=== PATIENT | male | born 1940 | race Caucasian/White ===

== ENCOUNTER 2021-01-19 09:51 | Outpatient (CLI) | payer OTHER, SELFPAY ==
[2021-01-19 10:49] LABS: Alanine Aminotransferase 17 U/L (4-50); Albumin Level 4.2 g/dL (3.5-5.1); Alkaline Phosphatase 74 U/L (38-126); Anion Gap 8 mmol/L (8-16); Aspartate Amino Transferase 26 U/L (17-59); Bilirubin,Total 0.5 mg/dL (0.2-1.3); Blood Urea Nitrogen 9 mg/dL (9-20); Calcium 9.2 mg/dL (8.4-10.2); Carbon Dioxide 27 mmol/L (22-30); Chloride 105 mmol/L (98-107); Cholesterol 154 mg/dL (0-200); Estimated Glomerular Filt Rate > 60; Glucose 149 mg/dL (75-110); HDL Direct 40 mg/dL; Hemoglobin A1C 6.3 % (<5.7); Magnesium 1.9 mg/dL (1.6-2.3); Potassium 4.5 mmol/L (3.4-5.0); Sodium 140 mmol/L (137-145); Triglycerides 143 mg/dL (<150)
[2021-01-19 10:53] LABS: Add Urine Microscopic? YES; Appearance Urine Clear (Clear); Bacteria Urine Trace /hpf; Bilirubin Urine Negative (Negative); Blood Urine 1+ (Negative); Color Urine Yellow (Yellow); Glucose Urine UA Negative (Negative); Ketones Urine Negative (Negative); Leukocyte Esterase Ur Negative LEU/UL (NEGATIVE); Mucus Urine Rare /lpf; Nitrate Urine Negative (Negative); Protein Urine Negative (Negative); RBC Urine 0-2 /hpf (0-2); Specific Grav Ur 1.017 (1.001-1.035); Urobilinogen Urine Negative mg/dL (<2.0); WBC Urine 0-3 /hpf (0-3)
[2021-01-19 10:59] LABS: LDL Cholesterol Direct 69 mg/dL
== END 2021-01-19 09:52 | disposition home or self-care (01) ==
PROVIDERS: PCP Nurse Practitioner Family; Visit Provider Nurse Practitioner Family
DX: E11.9 Type 2 diabetes mellitus without complications (principal); I10 Essential (primary) hypertension; R25.2 Cramp and spasm; E78.5 Hyperlipidemia, unspecified
CPT/HCPCS: 36415; 80048; 80061; 80076; 81001; 83036; 83735

== ENCOUNTER 2021-04-30 12:44 | Outpatient (CLI) | payer OTHER, SELFPAY ==
--- NOTE | 2021-04-30 | ECHO_ITS ---
Patient Info Name: Bennett Merlos Age: 80 years : 1940 Gender: Male Ht: 72 in Wt: 195 lbs BSA: 2.13 m2 HR: 68 bpm BP: 153 / 84 mmHg Heart Rhythm: Sinus Rhythm Exam Date: 04/30/2021 1:55 PM Exam Location: [facility] Patient Status: Outpatient Admit Date: 04/30/2021 Staff Ordering Physician: Lorri Law NP System Designer: ADRIAN Attending Provider: Lorri Law NP Referring Physician: Ani RODRIGUEZ; Exam Type: CA echo doppler color flow Study Info Indications R06.00 - Dyspnea, unspecified Complete two-dimensional, color flow and Doppler transthoracic echocardiogram is performed. Summary 1. Complete two-dimensional, color flow and Doppler transthoracic echocardiogram is performed. 2. Left ventricular chamber dimension is normal. 3. Left ventricular systolic function is normal, estimated at 55-60%. 4. Left ventricular septal wall motion is abnormal with septal motion related to bundle branch block. 5. The left ventricular diastolic function is grade I diastolic dysfunction. 6. E/e' 10 is mildly elevated. 7. Right ventricular systolic function is moderately reduced and with abnormal TAPSE 1.3 cm. 8. Right ventricular chamber dimension is moderately enlarged. 9. There is mild aortic valve sclerosis. 10. There is mild mitral valve regurgitation. 11. There is mild tricuspid valve regurgitation. 12. No pulmonary hypertension, estimated pulmonary arterial systolic pressure is 28 mmHg. 13. There is trace pulmonic regurgitation. Left Ventricle E/e' 10 is mildly elevated. Left ventricular chamber dimension is normal. Left ventricular systolic function is normal, estimated at 55-60%. Left ventricular septal wall motion is abnormal with septal motion related to bundle branch block. The left ventricular diastolic function is grade I diastolic dysfunction. Right Ventricle Right ventricular systolic function is moderately reduced and with abnormal TAPSE 1.3 cm. Right ventricular chamber dimension is moderately enlarged. Left Atria Left atrial chamber dimension is normal. Right Atria Right atrial chamber dimension is normal. Aortic Valve The aortic valve is trileaflet. There is mild aortic valve sclerosis. There is no aortic valve stenosis. There is no aortic valve regurgitation. Pulmonic Valve There is trace pulmonic regurgitation. Mitral Valve There is no mitral valve stenosis. There is mild mitral valve regurgitation. Tricuspid Valve There is mild tricuspid valve regurgitation. No pulmonary hypertension, estimated pulmonary arterial systolic pressure is 28 mmHg. Pericardium/Pleural There is no pericardial effusion. Inferior Vena Cava Normal inferior vena cava with >50% collapse upon inspiration consistent with normal right atrial pressure, 5 mmHg. Aorta The aortic root size at the sinus of Valsalva is normal. Left Ventricular Outflow Tract Name Value Normal LVOT 2D LVOT Diameter 1.8 cm LVOT Doppler LVOT Peak Gradient 3 mmHg LVOT Mean Gradient 1 mmHg LVOT VTI 19 cm
== END 2021-04-30 12:45 | disposition home or self-care (01) ==
PROVIDERS: PCP Nurse Practitioner Family
DX: R06.00 Dyspnea, unspecified (principal); Z95.1 Presence of aortocoronary bypass graft; I34.0 Nonrheumatic mitral (valve) insufficiency; I35.8 Other nonrheumatic aortic valve disorders; I07.1 Rheumatic tricuspid insufficiency
CPT/HCPCS: 93306

== ENCOUNTER 2022-03-25 01:15 | Day surgery (SDC) | payer OTHER, SELFPAY ==
[2022-03-16 12:26] VITALS: BMI 27.9
--- NOTE | 2022-03-24 12:57 | WPDANESEPPF ---
Anes - Initial Pre Proc Eval Procedure: Operation Date: 03/25/22 10:00 Proposed Procedures p Esophagogastroduodenoscopy & Colonoscopy - Bryant Lee MD Date/Time: 03/24/22 12:57 Surgeon: Bryant Lee MD Pre Op Diagnosis: hx of colon polyp,change in bowel habits,dysphagia Patient Data Age: 81 Gender: M Height: 1.8 m Weight: 91 kg Allergies Allergy/AdvReac Type Severity Reaction Status Date / Time Penicillins Allergy Severe Hives Verified 03/25/22 09:10 Home Medications Medication Instructions Recorded Confirmed Type aspirin 81 mg tablet,delayed 81 mg PO DAILY 01/15/21 03/16/22 History release buspirone 15 mg tablet 7.5 mg PO BID #90 tabs 10/13/21 03/16/22 Rx cholecalciferol (vitamin D3) 125 5,000 unit PO DAILY 10/13/21 03/16/22 History mcg (5,000 unit) tablet cyanocobalamin (vitamin B-12) 1,000 mcg PO DAILY 10/13/21 03/16/22 History 1,000 mcg tablet metformin 1,000 mg tablet 1,000 mg PO BID #180 tabs 10/13/21 03/16/22 Rx metoprolol succinate 25 mg 12.5 mg PO DAILY #45 tabs 12/30/21 03/16/22 Rx tablet,extended release 24 hr tamsulosin 0.4 mg capsule 0.4 mg PO QHS #90 caps 12/30/21 03/16/22 Rx pantoprazole 20 mg tablet,delayed 20 mg PO QAM #30 tabs 02/09/22 03/16/22 Rx release clopidogrel 75 mg tablet (Plavix) 75 mg PO DAILY #90 tabs 03/07/22 03/25/22 Rx Adult Probiotic 1 cap PO DAILY 03/16/22 03/16/22 History acetaminophen 500 mg capsule 500 mg PO BID PRN Pain 03/16/22 03/16/22 History fluticasone propionate 50 1 spray intranasal BID PRN Allergy 03/16/22 03/16/22 History mcg/actuation nasal Symptoms spray,suspension (Flonase Allergy Relief) timolol maleate 0.5 % eye drops 1 drp EACH EYE BID 03/16/22 03/16/22 History Patient hx anesthesia problems: none Family hx anesthesia problems: none Results Review: All pre-operative results and documents have been reviewed as part of the pre-operative evaluation. [facility] Past Medical History Medical History Anxiety Atherosclerotic heart disease of [place] coronary artery without angina pectoris Blood in urine BMI 37.0-37.9, adult BPH associated with nocturia PSA elevated at 6.4 on 10/06/2021 CAD (coronary artery disease) Constipation Diabetes type 2, controlled glucose 138 with hemoglobin A1c 6.9 on 10/06/2021 with urine microalbumin ratio of 7. Glucose 141 with hemoglobin A1c 6.8 on 12/22/2021. Elevated PSA, less than 10 ng/ml Encounter to establish care Family hx of colon cancer GERD (gastroesophageal reflux disease) History of heart attack Hx of adenomatous colonic polyps Hx of basal cell carcinoma Hx of transient ischemic attack (TIA) Hyperlipidemia total cholesterol 128, triglycerides 116, HDL 47 and LDL 86 on 10/06/2021 Hypertension [facility] use of drug Muscle cramp Myalgia Screening for diabetic retinopathy no diabetic retinopathy on eye exam 07/29/2021. Seasonal allergies Vitamin B12 deficiency anemia (10/06/21) level low at 309 with goal greater than 400 on 10/06/2021. Normal at 426 on 12/22/2021. Vitamin D deficiency, unspecified (10/06/21) level low at 19.4 with goal greater than 30 on 10/06/2021. normal at 39.8 on 12/22/2021. 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
[2022-03-25 09:12] VITALS: BP 147/78; PULSE 98; RESP 20; TEMP 36.1; O2SAT 97; BMI 27.4
[2022-03-25] MEDS: LACTATED RINGERS 1,000 ML 150 ML IV CONT (09:17)
[2022-03-25 09:44] LABS: Glucose Point of Care 142 mg/dl (65-105)
--- NOTE | 2022-03-25 09:44 | PM.HPGS ---
History of Present Illness History of Present Illness Consent: Risks, benefits, and alternatives have been discussed and questions answered. Patient agrees to proceed with procedure. Chief complaint: hx of colon polyp,change in bowel habits,dysphagia Narrative: Bennett Merlos is a 81 year old male Was chronic acid reflux disease. His symptoms are not always controlled with this current regimen. He has had dysphagia for solid 3 years ago he had removal of adenomatous polyp from the cecum. Review of Systems Review of Systems: All systems reviewed & are unremarkable except as noted in HPI and below PMFSH Past Medical History Medical History Anxiety Atherosclerotic heart disease of [place] coronary artery without angina pectoris Blood in urine BMI 37.0-37.9, adult BPH associated with nocturia PSA elevated at 6.4 on 10/06/2021 CAD (coronary artery disease) Constipation Diabetes type 2, controlled glucose 138 with hemoglobin A1c 6.9 on 10/06/2021 with urine microalbumin ratio of 7. Glucose 141 with hemoglobin A1c 6.8 on 12/22/2021. 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 Seasonal allergies Vitamin B12 deficiency anemia (10/06/21) level low at 309 with goal greater than 400 on 10/06/2021. Normal at 426 on 12/22/2021. Vitamin D deficiency, unspecified (10/06/21) level low at 19.4 with goal greater than 30 on 10/06/2021. normal at 39.8 on 12/22/2021. 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, 2 vessel + stent 2013 Family History Family History Mother Cancer Father Suicide Grandparent Cancer Grandparent Heart disease Grandparent Cancer Grandparent Person hit by train Social History Social History Smoking status: Former smoker Tobacco type: cigarettes Smoking end date: 08/14/1959 Additional smoking assessment comments: 1 ppd for 5 years Alcohol intake: former Substance use: never Substance use type: does not use Living arrangements: with family Spiritual care concerns: No Meds Home Medications and Allergies Home Medications Medication Instructions Recorded Confirmed Type aspirin 81 mg tablet,delayed 81 mg PO DAILY 01/15/21 03/16/22 History release buspirone 15 mg tablet 7.5 mg PO BID #90 tabs 10/13/21 03/16/22 Rx cholecalciferol (vitamin D3) 125 5,000 unit PO DAILY 10/13/21 03/16/22 History mcg (5,000 unit) tablet cyanocobalamin (vitamin B-12) 1,000 mcg PO DAILY 10/13/21 03/16/22 History 1,000 mcg tablet metformin 1,000 mg tablet 1,000 mg PO BID #180 tabs 10/13/21 03/16/22 Rx metoprolol succinate 25 mg 12.5 mg PO DAILY #45 tabs 12/30/21 03/16/22 Rx tablet,extended release 24 hr tamsulosin 0.4 mg capsule 0.4 mg PO QHS #90 caps 12/30/21 03/16/22 Rx pantoprazole 20 mg tablet,delayed 20 mg PO QAM #30 tabs 02/09/22 03/16/22 Rx release clopidogrel 75 mg tablet (Plavix) 75 mg PO DAILY #90 tabs 03/07/22 03/25/22 Rx Adult Probiotic 1 cap PO DAILY 03/16/22 03/16/22 History acetaminophen 500 mg capsule 500 mg PO BID PRN Pain 03/16/22 03/16/22 History fluticasone propionate 50 1 spray intranasal BID PRN Allergy 03/16/22 03/16/22 History mcg/actuation nasal Symptoms spray,suspension (Fl
--- NOTE | 2022-03-25 10:16 | SUR.OPER ---
EGD end 1009 COLONOSCOPY start 1015
[2022-03-25] MEDS: SIMETHICONE ORAL SUSPENSION 20 MG/0.3 ML 30 ML BOTTLE 0.6 ML IRRIGATION (10:27)
[2022-03-25 10:31] VITALS: BP 81/39; PULSE 77; RESP 21; O2SAT 98
[2022-03-25 10:41] VITALS: BP 110/62; PULSE 79; RESP 21; O2SAT 98
[2022-03-25 10:51] VITALS: BP 122/59; PULSE 74; RESP 20; O2SAT 98
== END 2022-03-25 11:55 | disposition home or self-care (01) ==
PROVIDERS: PCP Nurse Practitioner Family; Visit Provider Internal Medicine Gastroenterology
PROC: 0DJ08ZZ Inspection of Upper Intestinal Tract, Via Natural or Artificial Opening Endoscopic (ICD-10-PCS; CPT 43235; principal; 2022-03-25 10:00)
DX: Z12.11 Encounter for screening for malignant neoplasm of colon (principal); K21.00 Gastro-esophageal reflux disease with esophagitis, without bleeding; Z86.010 Personal history of colon polyps; K57.30 Diverticulosis of large intestine without perforation or abscess without bleeding; K64.8 Other hemorrhoids; R13.10 Dysphagia, unspecified; K22.2 Esophageal obstruction; F41.9 Anxiety disorder, unspecified; I25.10 Atherosclerotic heart disease of native coronary artery without angina pectoris; N40.0 Benign prostatic hyperplasia without lower urinary tract symptoms; E11.9 Type 2 diabetes mellitus without complications; I25.2 Old myocardial infarction; Z85.828 Personal history of other malignant neoplasm of skin; K21.9 Gastro-esophageal reflux disease without esophagitis; Z86.73 Personal history of transient ischemic attack (TIA), and cerebral infarction without residual deficits; E78.5 Hyperlipidemia, unspecified; E55.9 Vitamin D deficiency, unspecified; D51.9 Vitamin B12 deficiency anemia, unspecified; M79.10 Myalgia, unspecified site; Z95.1 Presence of aortocoronary bypass graft; Z87.891 Personal history of nicotine dependence; Z79.82 Long term (current) use of aspirin; Z79.84 Long term (current) use of oral hypoglycemic drugs
CPT/HCPCS: 43239; G0105; 82948; 88305; J2001; J2704; J3370; J7120

== ENCOUNTER 2023-03-17 12:40 | Emergency (ER) | payer OTHER, SELFPAY ==
--- NOTE | ~2023-03-17 | XR_ITS ---
EXAMINATION: XR chest 2V DATE: 03/17/2023 13:22 INDICATION: Cough. TECHNIQUE: Frontal and lateral views of the chest were obtained. COMPARISON: None. FINDINGS: There is mild elevation of right hemidiaphragm. No pneumonia, pleural effusion, or pneumoth orax. The heart size is normal. Median sternotomy wires and mediastinal surgical clips are seen, like ly from prior coronary artery bypass grafting. There is an old healed fracture of right clavicle. Eduardo gical clips overlie right upper chest. IMPRESSION: 1. No acute cardiopulmonary disease. Reviewed, dictated and finalized at location B.
--- NOTE | 2023-03-17 12:58 | ED.URI ---
HPI - URI/Sore Throat General Chief Complaint: Upper Respiratory Infection Stated Complaint: congestion Time Seen by Provider: 03/17/23 13:01 Source: patient Mode of arrival: ambulatory Limitations: no limitations History of Present Illness HPI Narrative: Bennett is a an 82-year-old male patient presenting to the clinic today with complaints of cough and congestion with periods of mild shortness of breath x1 month. He reports has had a productive cough with yellow phlegm and a lot of sinus drainage over the last few weeks. Denies any fever or chills. Has been having a productive cough with yellow phlegm. MD elicited complaint: sore throat and nasal congestion Related Data Home Medications Medication Instructions Recorded Confirmed aspirin 81 mg tablet,delayed 81 mg PO DAILY 01/15/21 03/17/23 release cholecalciferol (vitamin D3) 125 5,000 unit PO DAILY 10/13/21 03/17/23 mcg (5,000 unit) tablet cyanocobalamin (vitamin B-12) 1,000 mcg PO DAILY 10/13/21 03/17/23 1,000 mcg tablet Adult Probiotic 1 cap PO DAILY 03/16/22 03/17/23 acetaminophen 500 mg capsule 500 mg PO BID PRN Pain 03/16/22 03/17/23 timolol maleate 0.5 % eye drops 1 drp EACH EYE BID 03/16/22 03/17/23 Allergies Allergy/AdvReac Type Severity Reaction Status Date / Time Penicillins Allergy Severe Hives Verified 03/17/23 13:42 Review of Systems Review of Systems: Pertinent positives per HPI. Patient denies any fever, chills, rash, headache, visual changes, dizziness, shortness of breath, chest pain, palpitations, nausea, vomiting, diarrhea, constipation, abdominal pain, or any urinary issues. [facility] Past Medical History Medical History Anxiety Atherosclerotic heart disease of [place] coronary artery without angina pectoris Blood in urine BMI 37.0-37.9, adult BPH associated with nocturia PSA elevated at 6.4 on 10/06/2021 CAD (coronary artery disease) Constipation Diabetes type 2, controlled glucose 138 with hemoglobin A1c 6.9 on 10/06/2021 with urine microalbumin ratio of 7. Glucose 141 with hemoglobin A1c 6.8 on 12/22/2021. Elevated PSA, less than 10 ng/ml Encounter to establish care Family hx of colon cancer GERD (gastroesophageal reflux disease) History of heart attack Hx of adenomatous colonic polyps Hx of basal cell carcinoma Hx of transient ischemic attack (TIA) Hyperlipidemia total cholesterol 128, triglycerides 116, HDL 47 and LDL 86 on 10/06/2021 Hypertension half-way use of drug Muscle cramp Myalgia Screening for diabetic retinopathy no diabetic retinopathy on eye exam 07/29/2021. Seasonal allergies Vitamin B12 deficiency anemia (10/06/21) level low at 309 with goal greater than 400 on 10/06/2021. Normal at 426 on 12/22/2021. Vitamin D deficiency, unspecified (10/06/21) level low at 19.4 with goal greater than 30 on 10/06/2021. normal at 39.8 on 12/22/2021. 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, 2 vessel + stent 2013 Family History Family History Mother Cancer Father Suicide Grandparent Cancer Grandparent Heart disease Grandparent Cancer Grandparent Person hit by train Social History Social History Smoking status: Former smoker Tobacco type: cigarettes Smoking end date: 08/14/1959 Additional smoking assessment comments: 1 ppd for 5 years Alcohol intake: former Substance use: never Substance use type: does not use Living arrangements: with family Spiritual care concerns: No Comments At the time of my signature, I reviewed and agree with the nursing past medical, surgical, social, and family history.
[2023-03-17 13:06] VITALS: BP 133/71; PULSE 77; RESP 18; TEMP 36.1; O2SAT 96
== END 2023-03-17 13:36 | disposition home or self-care (01) ==
PROVIDERS: Emergency Provider Nurse Practitioner Family; PCP Family Medicine
DX: J01.90 Acute sinusitis, unspecified (principal); Z87.891 Personal history of nicotine dependence; I25.10 Atherosclerotic heart disease of native coronary artery without angina pectoris; E11.9 Type 2 diabetes mellitus without complications; K21.9 Gastro-esophageal reflux disease without esophagitis; I25.2 Old myocardial infarction; E78.5 Hyperlipidemia, unspecified; Z86.73 Personal history of transient ischemic attack (TIA), and cerebral infarction without residual deficits; Z85.828 Personal history of other malignant neoplasm of skin; Z95.5 Presence of coronary angioplasty implant and graft; E55.9 Vitamin D deficiency, unspecified; E53.8 Deficiency of other specified B group vitamins; Z79.82 Long term (current) use of aspirin; Z79.4 Long term (current) use of insulin
CPT/HCPCS: 71046; 99213; G0463

== ENCOUNTER 2023-07-13 08:36 | Outpatient (CLI) | payer OTHER, SELFPAY ==
--- NOTE | ~2023-07-13 | CT_ITS ---
CT of the Abdomen and Pelvis: Indication: Abdominal distention Technique: 2.5 mm axial scans were obtained through the abdomen and pelvis following intravenous adm inistration of 100 cc of Omnipaque 350. Dose reduction technique was used on this scan by utilizing a utomated exposure control and iterative reconstruction technique. The dose-length product (DLP) was 9 82.14 mGy-cm. Findings: Scans through the lung bases demonstrate small groundglass opacities at the left lung base , nonspecific. There is diffuse fatty infiltration of liver. Cholecystectomy clips are present. The spleen, pancreas , adrenals and kidneys are within normal limits. There are atherosclerotic calcifications of the aort a. Infrarenal abdominal aorta measures up to 3.3 cm in maximum diameter. No lymphadenopathy. There is mild wall thickening at the sigmoid colon with minimal inflammatory change, suggestive of mi nimal acute diverticulitis. No bowel obstruction. Moderate fat-containing ventral hernia noted. Images through the pelvis were performed. Urinary bladder unremarkable. Prostate gland and seminal ve sicles are unremarkable. No ascites. Impression: Probable minimal acute diverticulitis of the sigmoid colon. Diffuse fatty infiltration of liver. Moderate fat-containing ventral hernia. Reviewed, dictated and finalized at location . 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 Diffuse fatty infiltration of liver. Moderate fat-containing ventral hernia.
[2023-07-13 09:11] LABS: Estimated Glomerular Filt Rate > 60
== END 2023-07-13 08:37 | disposition home or self-care (01) ==
PROVIDERS: PCP Family Medicine; Visit Provider Nurse Practitioner
DX: R10.9 Unspecified abdominal pain (principal); R11.0 Nausea; R14.0 Abdominal distension (gaseous)
CPT/HCPCS: 74177; Q9967

== ENCOUNTER 2024-07-03 15:30 | Outpatient (CLI) | payer OTHER, SELFPAY ==
--- NOTE | ~2024-07-03 | XR_ITS ---
EXAMINATION: XR abdomen/kub 1V DATE: 07/03/2024 15:46 INDICATION: Abdominal distention. Constipation. TECHNIQUE: A supine view of the abdomen on 2 radiographs was obtained. COMPARISON: CT abdomen and pelvis 07/13/2023 FINDINGS: There are no dilated loops of bowel. There is a small volume of stool in the colon. Surgica l clips in the right upper quadrant are likely from cholecystectomy. Median sternotomy wires and medi astinal surgical clips are seen, likely from prior coronary artery bypass grafting. IMPRESSION: 1. Normal bowel gas pattern. Reviewed, dictated and finalized at location A. IC AFFAIRS OFFICER
== END 2024-07-03 15:31 | disposition home or self-care (01) ==
LOC: ANHIMG 15:33
PROVIDERS: PCP Nurse Practitioner Family; Visit Provider Nurse Practitioner
DX: K43.9 Ventral hernia without obstruction or gangrene (principal); R14.0 Abdominal distension (gaseous); R11.0 Nausea
CPT/HCPCS: 74018

== ENCOUNTER 2024-07-24 10:45 | Outpatient (CLI) | payer OTHER, SELFPAY ==
--- NOTE | ~2024-07-24 | CT_ITS ---
CT of the Abdomen and Pelvis: Indication: Abdominal distention Technique: 2.5 mm axial scans were obtained through the abdomen and pelvis following intravenous adm inistration of 100 cc of Omnipaque 350. Dose reduction technique was used on this scan by utilizing a utomated exposure control and iterative reconstruction technique. The dose-length product (DLP) was 1 074.23 mGy-cm. COMPARISON: 07/13/2023 Findings: Scans through the lung bases are unremarkable. Diffuse hepatic steatosis noted. Cholecystectomy clips are present. The spleen, pancreas, adrenals an d kidneys are within normal limits. There are atherosclerotic calcifications of the aorta. There is m ild aneurysmal dilatation of distal abdominal aorta to 3.3 cm in diameter. No lymphadenopathy. No bowel obstruction or bowel wall thickening. Duodenal diverticulum noted. Extensive sigmoid diverti culosis noted. Moderate fat-containing ventral hernia present superior to the umbilicus. Very small f at-containing umbilical hernia present. Images through the pelvis were performed. Urinary bladder unremarkable. No pelvic mass seen. Prostate mildly enlarged. No ascites. Stable small cystic mass in the left lower quadrant (axial image 154). Impression: Moderate thickening ventral hernia, essentially stable from prior exam. Small fat-containing umbilica l hernia. Diffuse hepatic steatosis. 3.3 cm infrarenal abdominal aortic aneurysm. Stable small cystic mass in the left lower quadrant. Thi s is most likely benign, possibly small lymphocele. Reviewed, dictated and finalized at location . 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 Small f at-containing umbilical hernia. Diffuse hepatic steatosis. 3.3 cm infrarenal abdominal aortic aneurysm. Stable small cystic mass in the le ft lower quadrant. This is most likely benign, possibly small lymphocele.
[2024-07-24 11:11] LABS: Estimated Glomerular Filt Rate > 60
== END 2024-07-24 10:46 | disposition home or self-care (01) ==
PROVIDERS: PCP Nurse Practitioner Family; Visit Provider Nurse Practitioner
DX: K43.9 Ventral hernia without obstruction or gangrene (principal); K42.9 Umbilical hernia without obstruction or gangrene; K76.0 Fatty (change of) liver, not elsewhere classified; I71.43 Infrarenal abdominal aortic aneurysm, without rupture; K59.09 Other constipation; R19.04 Left lower quadrant abdominal swelling, mass and lump
CPT/HCPCS: 74177; Q9967

== ENCOUNTER 2025-08-07 08:54 | Inpatient (IN) | payer OTHER, SELFPAY ==
[2025-08-07] VITALS (48 sets, daily range): BP systolic 121–188; BP diastolic 47–108; PULSE 93–121; RESP 19–36; TEMP 35.2–37.3; O2SAT 83–100; BMI 25.9
--- NOTE | ~2025-08-07 | XR_ITS ---
XR chest 1V portable 08/07/2025 11:05 Indication: Hypoxia Procedure: AP portable chest Comparison: 03/17/2023 Findings: Status post median sternotomy for CABG. Heart size normal. Interval development of patchy bilateral airspace disease, compatible with pneumonia. There are surgical clips overlying the right upper thorax laterally. Healed right clavicular fracture. No acute osseous abnormality. Impression: 1: Patchy bilateral airspace disease, compatible with pneumonia. Reviewed, dictated and finalized at location O. N ANNOUNCER Impression: 1: Patchy bilateral airspace disease, compatible with pneumonia.
--- NOTE | ~2025-08-07 | XR_ITS ---
MODIFIED ESOPHAGRAM HISTORY: Recommended by bedside swallow evaluation TECHNIQUE: Modified barium esophagram was performed on 08/08/2025. I administered fluoroscopy and performed the exam with speech pathologist. Patient was seated for lateral fluoroscopic imaging for ingestion of thin liquids, pudding, solids and quantified amounts, followed by thin liquids in uncontrolled amounts. This was recorded on tape. A single fluoroscopic spot image was also recorded. The DAP for this procedure was 0.991 Gycm2. The amount of fluoroscopy time used during this procedure was 1.4 minutes. FINDINGS: Oral stage: Adequate function. Pharyngeal stage: Reduced laryngeal elevation and abduction. Reduced tongue base retraction. There was one episode of laryngeal penetration with aspiration. Cervical/esophageal stage: Adequate function. IMPRESSION: Mild pharyngeal dysphagia with 1 episode of laryngeal penetration with aspiration. Please correlate with speech pathologist findings and specific feeding recommendations. Reviewed, dictated and finalized at location A. PTIC METEOROLOGIST IMPRESSION: Mild pharyngeal dysphagia with 1 episode of laryngeal penetration w ith aspiration. Please correlate with speech pathologist findings and specific feeding recommendations.
--- NOTE | ~2025-08-07 | CT_ITS ---
EXAMINATION: CTA chest PE protocol DATE: 08/07/2025 13:11 REVENUE LIAISON INDICATION: Shortness of breath and tachycardia TECHNIQUE: Computed tomographic angiography (CTA) of the chest was performed with 100 mL Omnipaque-350 intravenous contrast. The dose-length product was 734.47 mGy-cm. Maximum intensity projection 3D-reconstructions of the aorta and other arteries were constructed by the technologist on a separate workstation. COMPARISON: Chest x-ray dated 08/07/2025. FINDINGS: Study technically adequate without evidence for pulmonary embolism. There are calcified mediastinal lymph nodes, consistent with chronic granulomatous disease. Mildly prominent pulmonary arteries consistent with pulmonary hypertension. Moderate pleural effusions. There is atherosclerosis of the aorta without evidence for aneurysm or dissection. Status post cholecystectomy. Extensive patchy bilateral airspace disease, consistent with multifocal pneumonia. No pneumothorax. No endobronchial lesions. IMPRESSION: 1. Multifocal pneumonia with moderate pleural effusions. Reviewed, dictated and finalized at location O. NUE LIAISON
--- NOTE | 2025-08-07 09:01 | ECG_ITS ---
Test Date: 2025-08-07 09:06:49 Measurements Intervals Ward Rate: 108 P: 34 MT: 168 QRS: 39 QRSD: 133 T: 74 QT: 360 QTc: 484 Interpretive Statements SINUS TACHYCARDIA POSSIBLE LEFT ATRIAL ENLARGEMENT RIGHT BUNDLE BRANCH BLOCK BASELINE ARTIFACT- III, AVR, AVF, V1, V3-V6 ABNORMAL ECG No previous ECG available for comparison Electronically Signed On 08-07-2025 09:08:45 MANAGER PRINT by Karsten Murillo D.O.
--- NOTE | 2025-08-07 09:35 | ED.SOB ---
HPI - SOB/Dyspnea General Chief Complaint: Shortness of Breath/Dyspnea <Carol Portillo APRN - Last Filed: 08/07/25 15:06> Stated Complaint: SOB, hypoxic <Carol Portillo APRN - Last Filed: 08/07/25 15:06> Time Seen by Provider: 08/07/25 09:09 <Carol Portillo APRN - Last Filed: 08/07/25 15:06> History of Present Illness HPI Narrative: Patient is an 85-year-old male who presents to the ER with a 2-3 day history of shortness of breath. He reports he lives at home with his and his symptoms have progressively gotten worse. Patient reports he has never experienced anything like this before. He endorses a history of high blood pressure, diabetes, coronary artery disease, hernia, and history of a heart attack. Patient denies any acute back pain, acute chest pain, or abdominal pain. <Carol Portillo APRN - Last Filed: 08/07/25 15:06> Related Data Home Medications: Home Medications ?Medication ?Instructions ?Recorded ?Confirmed ?Last Taken ?Type cholecalciferol (vitamin D3) 125 5,000 unit PO DAILY 10/13/21 08/07/25 03/24/22 History mcg (5,000 unit) tablet cyanocobalamin (vitamin B-12) 1,000 mcg PO DAILY 10/13/21 08/07/25 03/24/22 History 1,000 mcg tablet acetaminophen 500 mg capsule 500 mg PO BID PRN Pain 03/16/22 08/07/25 03/24/22 History timolol maleate 0.5 % eye drops 1 drp EACH EYE BID 03/16/22 08/07/25 03/24/22 History nitroglycerin 0.4 mg sublingual 0.4 mg sublingual Q5M PRN chest 03/28/24 08/07/25 Unknown History tablet pain aspirin 81 mg tablet,delayed 81 mg PO DAILY 10/03/24 08/07/25 Unknown History release (Adult Aspirin Regimen) <Carol Portillo APRN - Last Filed: 08/07/25 15:06> Allergies/Adverse Reactions: Allergies Allergy/AdvReac Type Severity Reaction Status Date / Time Penicillins Allergy Severe Hives Verified 08/07/25 16:46 <Carol Portillo APRN - Last Filed: 08/07/25 15:06> Review of Systems Review of Systems: All systems reviewed & are unremarkable except as noted in HPI and below <Carol Portillo APRN - Last Filed: 08/07/25 15:06> [facility] Past Medical History Medical History: Medical History Ventral hernia Diverticulosis Chronic constipation Family hx of colon cancer Hx of adenomatous colonic polyps Elevated PSA, less than 10 ng/ml Screening for diabetic retinopathy no diabetic retinopathy on eye exam 07/29/2021. Vitamin B12 deficiency anemia (10/06/21) level low at 309 with goal greater than 400 on 10/06/2021. Normal at 426 on 12/22/2021. Vitamin D deficiency, unspecified (10/06/21) level low at 19.4 with goal greater than 30 on 10/06/2021. normal at 39.8 on 12/22/2021. Myalgia Constipation Hypertension Seasonal allergies GERD (gastroesophageal reflux disease) Hyperlipidemia total cholesterol 128, triglycerides 116, HDL 47 and LDL 86 on 10/06/2021 Diabetes type 2, controlled glucose 138 with hemoglobin A1c 6.9 on 10/06/2021 with urine microalbumin ratio of 7. Glucose 141 with hemoglobin A1c 6.8 on 12/22/2021. 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, 2 vessel + stent 2013 History of ear surgery H/O eye surgery <Carol Portillo APRN - Last Filed: 08/07/25 15:06> Family History Family History: Family History Mother Cancer Father Suicide Grandparent Cancer Grandparent Heart disease Grandparent Cancer Grandparent Person hit by train <Carol Portillo APRN - Last Filed: 08/07/25 15:06> Social History Social History: Social History Smoking status: Never smoker Tobacco type: cigarettes Smoking end date: 08/14/1959 Additional smoking assessment comments: 1 ppd for 5 years Alcohol intake: never Substance use: never Substance use type: does not use Lack of Transportation: No Lack of Food: Never True Current Housing: I Have Housing Concerned About Future Housing: No Difficulty Paying Gas/Electric Bills: No Difficulty Paying for Meds: No Currently Unemployed: No Education: Trade/Vocational Certificate Difficulty w/ Childcare or Family Care: No Living arrangements: with family Spiritual care concerns: No <Carol Portillo APRN - Last Filed: 08/07/25 15:06> Exam Narrative: GENERAL: Ill appearing, well-nourished, toxic, in mild respiratory distress. HEAD: Normocephalic, atraumatic. NECK: Supple. No adenopathy, no masses. RESPIRATORY: Airway patent, respirations labored. + wheezing. + tachypnea CARDIOVASCULAR: tachycardia with murmur. Peripheral pulses 2+ and equal bilaterally. Slightly edematous bilateral lower extremities ABDOMINAL: Soft, nontender, + distended. Normoactive BS. MUSCULOSKELETAL: Moves all extremities. Strength/ROM intact without gross deformities. SKIN: Warm, dry, pallor. No rashes. NEURO: A&O X3. Speech clear. Cranial nerves II-XII intact. No ataxic movements. PSYCHIATRIC: Appropriate mood and affect. Normal interaction. <Carol Portillo APRN - Last Filed: 08/07/25 15:06> Course CREDIT ADVISOR/PA Physician Supervision This visit was performed by both a physician and an Advanced Motion Picture Set Worker. I performed all aspects of the Medical Decision Making as documented. Was physically present to answer questions but did not see the patient. <José Martins MD - Last Filed: 08/07/25 17:48> Vital Signs Vital signs: Vital Signs Temperature 95.3 F L 08/07/25 08:56 Pulse Rate 109 H 08/07/25 08:56 Respiratory Rate 33 H 08/07/25 08:56 Blood Pressure 156/65 H 08/07/25 08:56 Pulse Oximetry 83 L 08/07/25 08:56 Oxygen Delivery Room Air 08/07/25 08:56 Oxygen Flow Rate 2 08/07/25 08:56 Temperature 97.7 F 08/07/25 16:05 Pulse Rate 117 H 08/07/25 16:05 Respiratory Rate 36 H 08/07/25 16:05 Blood Pressure 153/64 H 08/07/25 16:05 Pulse Oximetry 98 08/07/25 16:05 Oxygen Delivery BiPAP 08/07/25 14:05 Oxygen Flow Rate 7 08/07/25 13:48 <Carol Portillo APRN - Last Filed: 08/07/25 15:06> Vital Signs Temperature 95.3 F L 08/07/25 08:56 Pulse Rate 109 H 08/07/25 08:56 Respiratory Rate 33 H 08/07/25 08:56 Blood Pressure 156/65 H 08/07/25 08:56 Pulse Oximetry 83 L 08/07/25 08:56 Oxygen Delivery Room Air 08/07/25 08:56 Oxygen Flow Rate 2 08/07/25 08:56 Temperature 97.7 F 08/07/25 16:05 Pulse Rate 117 H 08/07/25 16:05 Respiratory Rate 36 H 08/07/25 16:05 Blood Pressure 153/64 H 08/07/25 16:05 Pulse Oximetry 98 08/07/25 16:05 Oxygen Delivery BiPAP 08/07/25 14:05 Oxygen Flow Rate 7 08/07/25 13:48 <José Martins MD - Last Filed: 08/07/25 17:48> MDM MDM Narrative Medical decision making narrative: Patient is an 85-year-old male who presents to the ER with a 2-3 day history of shortness of breath. He reports he lives at home with his and his symptoms have progressively gotten worse. Patient reports he has never experienced anything like this before. He endorses a history of high blood pressure, diabetes, coronary artery disease, hernia, and history of a heart attack. Patient denies any acute back pain, acute chest pain, or abdominal pain. Labs Ordered: CBC, CMP, UA, lactic acid, ABG, blood cultures, beta hydroxybutyrate, INR, PTT, proBNP, magnesium, troponin, D-dimer, CRP Imaging Ordered: chest x-ray, CTA Medications Ordered: levofloxacin IV, 1 L normal saline IV, magnesium IV, Solu-Medrol 125 IV, DuoNeb Results: Pt's CT scan indicates Study technically adequate without evidence for pulmonary embolism. There are calcified mediastinal lymph nodes, consistent with chronic granulomatous disease. Mildly prominent pulmonary arteries consistent with pulmonary hypertension. Moderate pleural effusions. There is atherosclerosis of the aorta without evidence for aneurysm or dissection. Status post cholecystectomy. Extensive patchy bilateral airspace disease, consistent with multifocal pneumonia. No pneumothorax. No endobronchial lesions. Diagnosis: pneumonia, sepsis Risks: SIRS, Sepsis, and Septic Shock Criteria from [email or web address] on 08/07/2025 All calculations should be rechecked by clinician prior to use RESULT SUMMARY: This patient meets sepsis criteria. Follow your guidelines for sepsis, which typically include aggressive fluid resuscitation, early, broad-spectrum antibiotics, ICU consultation, CVP evaluation, and occasionally pressors and transfusion. INPUTS: Temp >38?C (100.4?F) or <36?C (96.8?F) ?> 1 = Yes Heart rate >90 ?> 1 = Yes Respiratory rate >20 or Mimi? <32 mm Hg ?> 1 = Yes WBC >12,000/mm?, <4,000/mm?, or >10% bands ?> 1 = Yes Suspected or present source of infection ?> 1 = Yes Lactic acidosis, SBP <90 or SBP drop >=0 mm Hg of normal ?> 0 = No Severe sepsis with hypotension, despite adequate fluid resuscitation ?> 0 = No Evidence of >= organs failing ?> 0 = No Less than 30ml/kg crystalloid bolus was ordered because it would be detrimental or harmful for the patient despite having Lactate=>4.0. The patient has the following condition Congestive Heart failure. In place of the 30ml/kg crystalloid bolus, the patient is to receive NS 10ml/kg bolus (recorded body weight). 1400- Pt did not tolerate being off the BIPAP, as his heart rate and respirations elevated. He also became diaphoretic. Pt was restarted on the BIPAP with a rate of 10 over 5. MDM: Results of imaging and lab work shared with patient and his family. It was advised patient be admitted to the hospital for further evaluation and treatment. Patient and his family verbalized understanding and are in agreement with plan. Patient expressed that he did not want a breathing tube placed, if necessary. His family verbalized this understanding and is in agreement with plan to not resuscitate. 1410- Patient continued to experience feelings of panic. He reports I feel like I'm having an anxiety attack. Pt started trying to crawl out of bed. He was prescribed Valium 5mg IV. Pt immediately settled in and was minimally responsive, although still breathing well on BIPAP. No vital sign changes. Pt's family is very upset about pt being sedated. 1500- At time of re-evaluation pt nods in agreement when asked if his anxiety had improved Spoke with JACKIE Rajan, who was in agreement with plan for admission. Pt will be admitted to the IMU. <Carol Portillo APRN - Last Filed: 08/07/25 15:06> Differential Diagnosis Differential Diagnosis: pneumonia, pulmonary embolism, STEMI, DKA, upper respiratory infection, respiratory failure <Carol Portillo APRN - Last Filed: 08/07/25 15:06> Lab Data MDM Lab Attestation statement: I personally reviewed the patient's lab results. <Carol Portillo APRN - Last Filed: 08/07/25 15:06> Result diagrams: 08/07/25 10:10 08/07/25 10:24 <Carol Portillo APRN - Last Filed: 08/07/25 15:06> Labs: Lab Results 08/07/25 08/07/25 08/07/25 Range/Units 09:33 09:44 09:45 WBC (4.5-10.0) K/mm3 RBC (4.6-6.20) M/mm3 Hgb (14.0-18.0) g/dL Hct (42.0-52.0) % MCV (80-100) fl MCH (26-34) pg MCHC (32-36) g/dl RDW (11.5-14.5) % Plt Count (150-375) k/mm3 MPV Immature Gran % (Auto) (0-0.5) % Neut % (Auto) (45.5-73.1) % Lymph % (Auto) (18.3-44.2) % [place] % (Auto) (2.6-8.5) % Eos % (Auto) (0-4.4) % Baso % (Auto) (0.2-1.2) % Lymph # (Auto) (0.9-3.2) K/mm3 [place] # (Auto) (0.1-0.6) K/mm3 Eos # (Auto) (0-0.3) K/mm3 Baso # (Auto) (0.0-0.1) K/mm3 Abs Immat Gran (auto) (0.00-0.031) K/mm3 Absolute Neuts (auto) (1.3-6.7) K/mm3 Absolute Nucleated RBC (0.0-0.012) K/mm3 Nucleated RBC % (0.0-0.2) % % Immature Plt Fraction (0.9-11.2) % PT INR APTT (22.3-36.8) Seconds D-Dimer (<0.48) ug/mL Expiratory Pressure 6 CMH2O Inspiratory Pressure 12 CMH2O Sodium Cancelled Potassium Cancelled Chloride Cancelled Carbon Dioxide Cancelled Anion Gap Cancelled BUN Cancelled Creatinine Cancelled Estim Creat Clear Calc Cancelled Estimated GFR Cancelled Glucose Cancelled POC Capillary Glucose (65-105) mg/dl Lactic Acid (0.7-2.0) mmol/L Calcium Cancelled Magnesium Cancelled Total Bilirubin Cancelled AST Cancelled ALT Cancelled Alkaline Phosphatase Cancelled Troponin I (0.000-0.034) ng/mL C-Reactive Protein (<1.0) mg/dL NT-Pro-B Natriuret Pep Cancelled Total Protein Cancelled Albumin Cancelled Beta-Hydroxybutyrate/Acetoacetate (0.02-0.27) mmol/L Urine Color (Yellow) Urine Appearance (Clear) Urine pH (5.0-9.0) Ur Specific [place] (1.001-1.035) Urine Protein (Negative) mg/dL Urine Glucose (UA) (Negative) mg/dL Urine Ketones (Negative) mg/dL Ur Blood (Man) (Negative) Urine Nitrate (Negative) Urine Bilirubin (Negative) Urine Urobilinogen (<2.0) mg/dL Add Ur Microanalysis Leukocyte Esterase Rfl (Negative) [place]/UL Urine RBC (0-2) /hpf Urine WBC (0-3) /hpf Ur Squamous Epith Cells (Few) /hpf Urine Bacteria /hpf Urine Casts Granular Casts (None) /lpf Influenza A (RT-PCR) (Negative) Influenza B (RT-PCR) (Negative) RSV (RT-PCR) (Negative) SARS-CoV-2 RNA (RT-PCR) (Negative) 08/07/25 08/07/25 08/07/25 Range/Units 09:54 10:10 10:24 WBC 11.7 H (4.5-10.0) K/mm3 RBC 4.84 (4.6-6.20) M/mm3 Hgb 13.3 L (14.0-18.0) g/dL Hct 41.4 L (42.0-52.0) % MCV 85.5 (80-100) fl MCH 27.5 (26-34) pg MCHC 32.1 (32-36) g/dl RDW 25.0 H (11.5-14.5) % Plt Count 184 (150-375) k/mm3 MPV TNP Immature Gran % (Auto) 8.4 H (0-0.5) % Neut % (Auto) 74.6 H (45.5-73.1) % Lymph % (Auto) 8.2 L (18.3-44.2) % [place] % (Auto) 7.6 (2.6-8.5) % Eos % (Auto) 0.1 (0-4.4) % Baso % (Auto) 1.1 (0.2-1.2) % Lymph # (Auto) 0.96 (0.9-3.2) K/mm3 [place] # (Auto) 0.9 H (0.1-0.6) K/mm3 Eos # (Auto) 0.0 (0-0.3) K/mm3 Baso # (Auto) 0.1 (0.0-0.1) K/mm3 Abs Immat Gran (auto) 0.98 H (0.00-0.031) K/mm3 Absolute Neuts (auto) 8.7 H (1.3-6.7) K/mm3 Absolute Nucleated RBC 0.150 H (0.0-0.012) K/mm3 Nucleated RBC % 1.3 H (0.0-0.2) % % Immature Plt Fraction 20.9 H (0.9-11.2) % PT Cancelled INR APTT (22.3-36.8) Seconds D-Dimer (<0.48) ug/mL Expiratory Pressure CMH2O Inspiratory Pressure CMH2O Sodium Potassium Chloride Carbon Dioxide Anion Gap BUN Creatinine Estim Creat Clear Calc Estimated GFR Glucose POC Capillary Glucose 289 H (65-105) mg/dl Lactic Acid (0.7-2.0) mmol/L Calcium Magnesium Total Bilirubin AST ALT Alkaline Phosphatase Troponin I (0.000-0.034) ng/mL C-Reactive Protein (<1.0) mg/dL NT-Pro-B Natriuret Pep Total Protein Albumin Beta-Hydroxybutyrate/Acetoacetate (0.02-0.27) mmol/L Urine Color (Yellow) Urine Appearance (Clear) Urine pH (5.0-9.0) Ur Specific [place]ion (1.001-1.035) Urine Protein (Negative) mg/dL Urine Glucose (UA) (Negative) mg/dL Urine Ketones (Negative) mg/dL Ur Blood (Man) (Negative) Urine Nitrate (Negative) Urine Bilirubin (Negative) Urine Urobilinogen (<2.0) mg/dL Add Ur Microanalysis Leukocyte Esterase Rfl (Negative) [place]/UL Urine RBC (0-2) /hpf Urine WBC (0-3) /hpf Ur Squamous Epith Cells (Few) /hpf Urine Bacteria /hpf Urine Casts Granular Casts (None) /lpf Influenza A (RT-PCR) (Negative) Influenza B (RT-PCR) (Negative) RSV (RT-PCR) (Negative) SARS-CoV-2 RNA (RT-PCR) (Negative) 08/07/25 08/07/25 08/07/25 Range/Units 10:24 10:24 11:55 WBC (4.5-10.0) K/mm3 RBC (4.6-6.20) M/mm3 Hgb (14.0-18.0) g/dL Hct (42.0-52.0) % MCV (80-100) fl MCH (26-34) pg MCHC (32-36) g/dl RDW (11.5-14.5) % Plt Count (150-375) k/mm3 MPV Immature Gran % (Auto) (0-0.5) % Neut % (Auto) (45.5-73.1) % Lymph % (Auto) (18.3-44.2) % [place] % (Auto) (2.6-8.5) % Eos % (Auto) (0-4.4) % Baso % (Auto) (0.2-1.2) % Lymph # (Auto) (0.9-3.2) K/mm3 [place] # (Auto) (0.1-0.6) K/mm3 Eos # (Auto) (0-0.3) K/mm3 Baso # (Auto) (0.0-0.1) K/mm3 Abs Immat Gran (auto) (0.00-0.031) K/mm3 Absolute Neuts (auto) (1.3-6.7) K/mm3 Absolute Nucleated RBC (0.0-0.012) K/mm3 Nucleated RBC % (0.0-0.2) % % Immature Plt Fraction (0.9-11.2) % PT 16.3 H INR Cancelled 1.3 APTT 29.6 (22.3-36.8) Seconds D-Dimer 1.69 H (<0.48) ug/mL Expiratory Pressure CMH2O Inspiratory Pressure CMH2O Sodium 125 L Potassium 4.8 Chloride 91 L Carbon Dioxide 15 L Anion Gap 19 H BUN 8 L Creatinine 0.67 L Estim Creat Clear Calc Not Reportable Estimated GFR > 60 Glucose 273 H POC Capillary Glucose (65-105) mg/dl Lactic Acid 5.1 H* (0.7-2.0) mmol/L Calcium 8.7 Magnesium 1.9 Total Bilirubin 0.9 AST 49 ALT 29 Alkaline Phosphatase 125 Troponin I 0.056 H* (0.000-0.034) ng/mL C-Reactive Protein 3.2 H (<1.0) mg/dL NT-Pro-B Natriuret Pep 8240 H Total Protein 9.5 H Albumin 4.9 Beta-Hydroxybutyrate/Acetoacetate 0.78 H (0.02-0.27) mmol/L Urine Color Yellow (Yellow) Urine Appearance Cloudy H (Clear) Urine pH 5.0 (5.0-9.0) Ur Specific [place] 1.029 (1.001-1.035) Urine Protein 2+ H (Negative) mg/dL Urine Glucose (UA) 3+ H (Negative) mg/dL Urine Ketones 1+ H (Negative) mg/dL Ur Blood (Man) 1+ H (Negative) Urine Nitrate Negative (Negative) Urine Bilirubin Negative (Negative) Urine Urobilinogen 1.0 (<2.0) mg/dL Add Ur Microanalysis Reviewed Leukocyte Esterase Rfl Negative (Negative) [place]/UL Urine RBC 0-2 (0-2) /hpf Urine WBC 0-5 (0-3) /hpf Ur Squamous Epith Cells Occasional (Few) /hpf Urine Bacteria None seen /hpf Urine Casts >20 Granular Casts Present (None) /lpf Influenza A (RT-PCR) Negative (Negative) Influenza B (RT-PCR) Negative (Negative) RSV (RT-PCR) Negative (Negative) SARS-CoV-2 RNA (RT-PCR) Negative (Negative) 08/07/25 08/07/25 Range/Units 13:24 13:25 WBC (4.5-10.0) K/mm3 RBC (4.6-6.20) M/mm3 Hgb (14.0-18.0) g/dL Hct (42.0-52.0) % MCV (80-100) fl MCH (26-34) pg MCHC (32-36) g/dl RDW (11.5-14.5) % Plt Count (150-375) k/mm3 MPV Immature Gran % (Auto) (0-0.5) % Neut % (Auto) (45.5-73.1) % Lymph % (Auto) (18.3-44.2) % [place] % (Auto) (2.6-8.5) % Eos % (Auto) (0-4.4) % Baso % (Auto) (0.2-1.2) % Lymph # (Auto) (0.9-3.2) K/mm3 [place] # (Auto) (0.1-0.6) K/mm3 Eos # (Auto) (0-0.3) K/mm3 Baso # (Auto) (0.0-0.1) K/mm3 Abs Immat Gran (auto) (0.00-0.031) K/mm3 Absolute Neuts (auto) (1.3-6.7) K/mm3 Absolute Nucleated RBC (0.0-0.012) K/mm3 Nucleated RBC % (0.0-0.2) % % Immature Plt Fraction (0.9-11.2) % PT INR APTT (22.3-36.8) Seconds D-Dimer (<0.48) ug/mL Expiratory Pressure 6 CMH2O Inspiratory Pressure 12 CMH2O Sodium Potassium Chloride Carbon Dioxide Anion Gap BUN Creatinine Estim Creat Clear Calc Estimated GFR Glucose POC Capillary Glucose (65-105) mg/dl Lactic Acid 2.6 H (0.7-2.0) mmol/L Calcium Magnesium Total Bilirubin AST ALT Alkaline Phosphatase Troponin I 0.138 H* D (0.000-0.034) ng/mL C-Reactive Protein (<1.0) mg/dL NT-Pro-B Natriuret Pep Total Protein Albumin Beta-Hydroxybutyrate/Acetoacetate (0.02-0.27) mmol/L Urine Color (Yellow) Urine Appearance (Clear) Urine pH (5.0-9.0) Ur Specific [place] (1.001-1.035) Urine Protein (Negative) mg/dL Urine Glucose (UA) (Negative) mg/dL Urine Ketones (Negative) mg/dL Ur Blood (Man) (Negative) Urine Nitrate (Negative) Urine Bilirubin (Negative) Urine Urobilinogen (<2.0) mg/dL Add Ur Microanalysis Leukocyte Esterase Rfl (Negative) [place]/UL Urine RBC (0-2) /hpf Urine WBC (0-3) /hpf Ur Squamous Epith Cells (Few) /hpf Urine Bacteria /hpf Urine Casts Granular Casts (None) /lpf Influenza A (RT-PCR) (Negative) Influenza B (RT-PCR) (Negative) RSV (RT-PCR) (Negative) SARS-CoV-2 RNA (RT-PCR) (Negative) <Carol Portillo, LEADER ASSEMBLER - Last Filed: 08/07/25 15:06> Lab Results 08/07/25 08/07/25 08/07/25 Range/Units 09:33 09:44 09:45 WBC (4.5-10.0) K/mm3 RBC (4.6-6.20) M/mm3 Hgb (14.0-18.0) g/dL Hct (42.0-52.0) % MCV (80-100) fl MCH (26-34) pg MCHC (32-36) g/dl RDW (11.5-14.5) % Plt Count (150-375) k/mm3 MPV Immature Gran % (Auto) (0-0.5) % Neut % (Auto) (45.5-73.1) % Lymph % (Auto) (18.3-44.2) % [place] % (Auto) (2.6-8.5) % Eos % (Auto) (0-4.4) % Baso % (Auto) (0.2-1.2) % Lymph # (Auto) (0.9-3.2) K/mm3 [place] # (Auto) (0.1-0.6) K/mm3 Eos # (Auto) (0-0.3) K/mm3 Baso # (Auto) (0.0-0.1) K/mm3 Abs Immat Gran (auto) (0.00-0.031) K/mm3 Absolute Neuts (auto) (1.3-6.7) K/mm3 Absolute Nucleated RBC (0.0-0.012) K/mm3 Nucleated RBC % (0.0-0.2) % % Immature Plt Fraction (0.9-11.2) % PT INR APTT (22.3-36.8) Seconds D-Dimer (<0.48) ug/mL Expiratory Pressure 6 CMH2O Inspiratory Pressure 12 CMH2O Sodium Cancelled Potassium Cancelled Chloride Cancelled Carbon Dioxide Cancelled Anion Gap Cancelled BUN Cancelled Creatinine Cancelled Estim Creat Clear Calc Cancelled Estimated GFR Cancelled Glucose Cancelled POC Capillary Glucose (65-105) mg/dl Lactic Acid (0.7-2.0) mmol/L Calcium Cancelled Magnesium Cancelled Total Bilirubin Cancelled AST Cancelled ALT Cancelled Alkaline Phosphatase Cancelled Troponin I (0.000-0.034) ng/mL C-Reactive Protein (<1.0) mg/dL NT-Pro-B Natriuret Pep Cancelled Total Protein Cancelled Albumin Cancelled Beta-Hydroxybutyrate/Acetoacetate (0.02-0.27) mmol/L Urine Color (Yellow) Urine Appearance (Clear) Urine pH (5.0-9.0) Ur Specific [place] (1.001-1.035) Urine Protein (Negative) mg/dL Urine Glucose (UA) (Negative) mg/dL Urine Ketones (Negative) mg/dL Ur Blood (Man) (Negative) Urine Nitrate (Negative) Urine Bilirubin (Negative) Urine Urobilinogen (<2.0) mg/dL Add Ur Microanalysis Leukocyte Esterase Rfl (Negative) [place]/UL Urine RBC (0-2) /hpf Urine WBC (0-3) /hpf Ur Squamous Epith Cells (Few) /hpf Urine Bacteria /hpf Urine Casts Granular Casts (None) /lpf Influenza A (RT-PCR) (Negative) Influenza B (RT-PCR) (Negative) RSV (RT-PCR) (Negative) SARS-CoV-2 RNA (RT-PCR) (Negative) 08/07/25 08/07/25 08/07/25 Range/Units 09:54 10:10 10:24 WBC 11.7 H (4.5-10.0) K/mm3 RBC 4.84 (4.6-6.20) M/mm3 Hgb 13.3 L (14.0-18.0) g/dL Hct 41.4 L (42.0-52.0) % MCV 85.5 (80-100) fl MCH 27.5 (26-34) pg MCHC 32.1 (32-36) g/dl RDW 25.0 H (11.5-14.5) % Plt Count 184 (150-375) k/mm3 MPV TNP Immature Gran % (Auto) 8.4 H (0-0.5) % Neut % (Auto) 74.6 H (45.5-73.1) % Lymph % (Auto) 8.2 L (18.3-44.2) % [place] % (Auto) 7.6 (2.6-8.5) % Eos % (Auto) 0.1 (0-4.4) % Baso % (Auto) 1.1 (0.2-1.2) % Lymph # (Auto) 0.96 (0.9-3.2) K/mm3 [place] # (Auto) 0.9 H (0.1-0.6) K/mm3 Eos # (Auto) 0.0 (0-0.3) K/mm3 Baso # (Auto) 0.1 (0.0-0.1) K/mm3 Abs Immat Gran (auto) 0.98 H (0.00-0.031) K/mm3 Absolute Neuts (auto) 8.7 H (1.3-6.7) K/mm3 Absolute Nucleated RBC 0.150 H (0.0-0.012) K/mm3 Nucleated RBC % 1.3 H (0.0-0.2) % % Immature Plt Fraction 20.9 H (0.9-11.2) % PT Cancelled INR APTT (22.3-36.8) Seconds D-Dimer (<0.48) ug/mL Expiratory Pressure CMH2O Inspiratory Pressure CMH2O Sodium Potassium Chloride Carbon Dioxide Anion Gap BUN Creatinine Estim Creat Clear Calc Estimated GFR Glucose POC Capillary Glucose 289 H (65-105) mg/dl Lactic Acid (0.7-2.0) mmol/L Calcium Magnesium Total Bilirubin AST ALT Alkaline Phosphatase Troponin I (0.000-0.034) ng/mL C-Reactive Protein (<1.0) mg/dL NT-Pro-B Natriuret Pep Total Protein Albumin Beta-Hydroxybutyrate/Acetoacetate (0.02-0.27) mmol/L Urine Color (Yellow) Urine Appearance (Clear) Urine pH (5.0-9.0) Ur Specific [place] (1.001-1.035) Urine Protein (Negative) mg/dL Urine Glucose (UA) (Negative) mg/dL Urine Ketones (Negative) mg/dL Ur Blood (Man) (Negative) Urine Nitrate (Negative) Urine Bilirubin (Negative) Urine Urobilinogen (<2.0) mg/dL Add Ur Microanalysis Leukocyte Esterase Rfl (Negative) [place]/UL Urine RBC (0-2) /hpf Urine WBC (0-3) /hpf Ur Squamous Epith Cells (Few) /hpf Urine Bacteria /hpf Urine Casts Granular Casts (None) /lpf Influenza A (RT-PCR) (Negative) Influenza B (RT-PCR) (Negative) RSV (RT-PCR) (Negative) SARS-CoV-2 RNA (RT-PCR) (Negative) 08/07/25 08/07/25 08/07/25 Range/Units 10:24 10:24 11:55 WBC (4.5-10.0) K/mm3 RBC (4.6-6.20) M/mm3 Hgb (14.0-18.0) g/dL Hct (42.0-52.0) % MCV (80-100) fl MCH (26-34) pg MCHC (32-36) g/dl RDW (11.5-14.5) % Plt Count (150-375) k/mm3 MPV Immature Gran % (Auto) (0-0.5) % Neut % (Auto) (45.5-73.1) % Lymph % (Auto) (18.3-44.2) % [place] % (Auto) (2.6-8.5) % Eos % (Auto) (0-4.4) % Baso % (Auto) (0.2-1.2) % Lymph # (Auto) (0.9-3.2) K/mm3 [place] # (Auto) (0.1-0.6) K/mm3 Eos # (Auto) (0-0.3) K/mm3 Baso # (Auto) (0.0-0.1) K/mm3 Abs Immat Gran (auto) (0.00-0.031) K/mm3 Absolute Neuts (auto) (1.3-6.7) K/mm3 Absolute Nucleated RBC (0.0-0.012) K/mm3 Nucleated RBC % (0.0-0.2) % % Immature Plt Fraction (0.9-11.2) % PT 16.3 H INR Cancelled 1.3 APTT 29.6 (22.3-36.8) Seconds D-Dimer 1.69 H (<0.48) ug/mL Expiratory Pressure CMH2O Inspiratory Pressure CMH2O Sodium 125 L Potassium 4.8 Chloride 91 L Carbon Dioxide 15 L Anion Gap 19 H BUN 8 L Creatinine 0.67 L Estim Creat Clear Calc Not Reportable Estimated GFR > 60 Glucose 273 H POC Capillary Glucose (65-105) mg/dl Lactic Acid 5.1 H* (0.7-2.0) mmol/L Calcium 8.7 Magnesium 1.9 Total Bilirubin 0.9 AST 49 ALT 29 Alkaline Phosphatase 125 Troponin I 0.056 H* (0.000-0.034) ng/mL C-Reactive Protein 3.2 H (<1.0) mg/dL NT-Pro-B Natriuret Pep 8240 H Total Protein 9.5 H Albumin 4.9 Beta-Hydroxybutyrate/Acetoacetate 0.78 H (0.02-0.27) mmol/L Urine Color Yellow (Yellow) Urine Appearance Cloudy H (Clear) Urine pH 5.0 (5.0-9.0) Ur Specific Orion 1.029 (1.001-1.035) Urine Protein 2+ H (Negative) mg/dL Urine Glucose (UA) 3+ H (Negative) mg/dL Urine Ketones 1+ H (Negative) mg/dL Ur Blood (Man) 1+ H (Negative) Urine Nitrate Negative (Negative) Urine Bilirubin Negative (Negative) Urine Urobilinogen 1.0 (<2.0) mg/dL Add Ur Microanalysis Reviewed Leukocyte Esterase Rfl Negative (Negative) NICHOLE/UL Urine RBC 0-2 (0-2) /hpf Urine WBC 0-5 (0-3) /hpf Ur Squamous Epith Cells Occasional (Few) /hpf Urine Bacteria None seen /hpf Urine Casts >20 Granular Casts Present (None) /lpf Influenza A (RT-PCR) Negative (Negative) Influenza B (RT-PCR) Negative (Negative) RSV (RT-PCR) Negative (Negative) SARS-CoV-2 RNA (RT-PCR) Negative (Negative) 08/07/25 08/07/25 Range/Units 13:24 13:25 WBC (4.5-10.0) K/mm3 RBC (4.6-6.20) M/mm3 Hgb (14.0-18.0) g/dL Hct (42.0-52.0) % MCV (80-100) fl MCH (26-34) pg MCHC (32-36) g/dl RDW (11.5-14.5) % Plt Count (150-375) k/mm3 MPV Immature Gran % (Auto) (0-0.5) % Neut % (Auto) (45.5-73.1) % Lymph % (Auto) (18.3-44.2) % [place] % (Auto) (2.6-8.5) % Eos % (Auto) (0-4.4) % Baso % (Auto) (0.2-1.2) % Lymph # (Auto) (0.9-3.2) K/mm3 [place] # (Auto) (0.1-0.6) K/mm3 Eos # (Auto) (0-0.3) K/mm3 Baso # (Auto) (0.0-0.1) K/mm3 Abs Immat Gran (auto) (0.00-0.031) K/mm3 Absolute Neuts (auto) (1.3-6.7) K/mm3 Absolute Nucleated RBC (0.0-0.012) K/mm3 Nucleated RBC % (0.0-0.2) % % Immature Plt Fraction (0.9-11.2) % PT INR APTT (22.3-36.8) Seconds D-Dimer (<0.48) ug/mL Expiratory Pressure 6 CMH2O Inspiratory Pressure 12 CMH2O Sodium Potassium Chloride Carbon Dioxide Anion Gap BUN Creatinine Estim Creat Clear Calc Estimated GFR Glucose POC Capillary Glucose (65-105) mg/dl Lactic Acid 2.6 H (0.7-2.0) mmol/L Calcium Magnesium Total Bilirubin AST ALT Alkaline Phosphatase Troponin I 0.138 H* D (0.000-0.034) ng/mL C-Reactive Protein (<1.0) mg/dL NT-Pro-B Natriuret Pep Total Protein Albumin Beta-Hydroxybutyrate/Acetoacetate (0.02-0.27) mmol/L Urine Color (Yellow) Urine Appearance (Clear) Urine pH (5.0-9.0) Ur Specific Orion (1.001-1.035) Urine Protein (Negative) mg/dL Urine Glucose (UA) (Negative) mg/dL Urine Ketones (Negative) mg/dL Ur Blood (Man) (Negative) Urine Nitrate (Negative) Urine Bilirubin (Negative) Urine Urobilinogen (<2.0) mg/dL Add Ur Microanalysis Leukocyte Esterase Rfl (Negative) N[place]LE/UL Urine RBC (0-2) /hpf Urine WBC (0-3) /hpf Ur Squamous Epith Cells (Few) /hpf Urine Bacteria /hpf Urine Casts Granular Casts (None) /lpf Influenza A (RT-PCR) (Negative) Influenza B (RT-PCR) (Negative) RSV (RT-PCR) (Negative) SARS-CoV-2 RNA (RT-PCR) (Negative) <José Martins MD - Last Filed: 08/07/25 17:48> ABG Data ABG results: 08/07/25 08/07/25 09:33 13:25 Puncture Site Right radial Right radial ABG pH 7.282 L* 7.390 ABG pCO2 40.8 32.7 L ABG pO2 150.2 H 98.0 ABG PO2/FiO2 Ratio 2.50 2.45 ABG HCO3 18.8 L 19.4 L ABG O2 Saturation 98.7 97.5 ABG O2 Content 18.5 16.8 ABG Base Excess -7.4 -4.7 A-a Gradient 232.7 149.6 Oxyhemoglobin 97.6 96.4 Total Hemoglobin 13.3 12.3 O2 Delivery Device Non-invasive vent Non-invasive vent O2 Liters/Min 0.0 0.0 Vent Rate 12 12 FiO2 60 40 <Carol Portillo APRN - Last Filed: 08/07/25 15:06> 08/07/25 08/07/25 09:33 13:25 Puncture Site Right radial Right radial ABG pH 7.282 L* 7.390 ABG pCO2 40.8 32.7 L ABG pO2 150.2 H 98.0 ABG PO2/FiO2 Ratio 2.50 2.45 ABG HCO3 18.8 L 19.4 L ABG O2 Saturation 98.7 97.5 ABG O2 Content 18.5 16.8 ABG Base Excess -7.4 -4.7 A-a Gradient 232.7 149.6 Oxyhemoglobin 97.6 96.4 Total Hemoglobin 13.3 12.3 O2 Delivery Device Non-invasive vent Non-invasive vent O2 Liters/Min 0.0 0.0 Vent Rate 12 12 FiO2 60 40 <José Martins MD - Last Filed: 08/07/25 17:48> Imaging Data Attestation: I personally reviewed and interpreted this imaging study as follows: <Carol Portillo APRN - Last Filed: 08/07/25 15:06> Radiologist's impression: ITS Impressions Chest X-Ray 08/07/25 11:11 Impression: 1: Patchy bilateral airspace disease, compatible with pneumonia. Chest CTA 08/07/25 13:10 IMPRESSION: 1. Multifocal pneumonia with moderate pleural effusions. <Carol Portillo APRN - Last Filed: 08/07/25 15:06> ITS Impressions Chest X-Ray 08/07/25 11:11 Impression: 1: Patchy bilateral airspace disease, compatible with pneumonia. Chest CTA 08/07/25 13:10 IMPRESSION: 1. Multifocal pneumonia with moderate pleural effusions. <José Martins MD - Last Filed: 08/07/25 17:48> Critical Care Time Critical Care Time Critical Care Time: Yes <Carol Portillo APRN - Last Filed: 08/07/25 15:06> Indication: Indication: resp failure, pneumonia requiring NIPPV <Carol Portillo APRN - Last Filed: 08/07/25 15:06> Time Type: Intermittent <Carol Portillo APRN - Last Filed: 08/07/25 15:06> Initial evaluation, discuss w/ involved parties, attempting to gather old records: 10 minutes <Carol Portillo APRN - Last Filed: 08/07/25 15:06> Documenting medical record: 5 minutes <Carol Portillo APRN - Last Filed: 08/07/25 15:06> Review of results (EKG's, labs, imaging): 5 minutes <Carol Portillo APRN - Last Filed: 08/07/25 15:06> Serial repeat bedside evaluation: 10 minutes <Carol Portillo APRN - Last Filed: 08/07/25 15:06> Discussing case with multiple memebers of the care team and consultants: 5 minutes <Carol Portillo APRN - Last Filed: 08/07/25 15:06> Total Critical Care Time: 35 <Carol Portillo APRN - Last Filed: 08/07/25 15:06> 35 <José Martins MD - Last Filed: 08/07/25 17:48> Discharge Plan Discharge Clinical Impression: Community acquired pneumonia Respiratory failure with hypoxia Qualifiers: Chronicity: acute Qualified Code(s): J96.01 - Acute respiratory failure with hypoxia Sepsis Qualifiers: Sepsis type: sepsis due to unspecified organism Sepsis acute organ dysfunction status: with acute organ dysfunction Severe sepsis acute organ dysfunction type: acute respiratory failure Acute respiratory failure type: with hypoxia Severe sepsis shock status: without septic shock Qualified Code(s): A41.9 - Sepsis, unspecified organism <Carol Portlilo APRN - Last Filed: 08/07/25 15:06> Patient Disposition: Still a Patient <Carol Portillo APRN - Last Filed: 08/07/25 15:06> Condition: Serious <Carol Portillo APRN - Last Filed: 08/07/25 15:06>
[2025-08-07] MEDS: IPRATROPIUM 0.5 MG/ALBUTEROL SULFATE 2.5 MG (BASE) AMPUL.NEB 3 ML INHALATION ×4 (09:55→20:39)
[2025-08-07 10:07] LABS: Alveolar/Arterial O2 Gradient 232.7 mmHg; Fractional Inspired Oxygen 60 %; HCO3 ABG 18.8 mEq/l (22.0-26.0); Oxygen Content ABG 18.5 %vol (16.0-22.0); Oxygen Saturation ABG 98.7 % (95.0-100.0); PCO2 ABG 40.8 mmHg (35.0-45.0); PO2 ABG 150.2 mmHg (80.0-100.0); PO2 FiO2 Ratio Arterial Blood 2.50 %
[2025-08-07 10:11] LABS: Liters per Minute 0.0 LPM; Modified Allen's Test Pass; Site Drawn RIGHT RADIAL
[2025-08-07 10:12] LABS: Non-Invasive Expiratory Pressure 6 CMH2O; Non-Invasive Inspiratory Pressure 12 CMH2O; Non-Invasive Vent Rate 12 /MIN
--- NOTE | 2025-08-07 10:15 | PCRCNOTE ---
ABG DELAYED DUE TO ABG MACHINE IN ED
[2025-08-07 10:17] LABS: Hematocrit 41.4 % (42.0-52.0); Hemoglobin 13.3 g/dL (14.0-18.0); Immature Granulocyte Percent A 8.4 % (0-0.5); Immature Platelet Fraction Pct 20.9 % (0.9-11.2); Lymphocytes Absolute Auto 0.96 K/mm3 (0.9-3.2); Mean Corpuscular HGB Conc 32.1 g/dl (32-36); Mean Corpuscular Hemoglobin 27.5 pg (26-34); Mean Corpuscular Volume 85.5 fl (80-100); Nucleated Red Blood Cells Absolute Auto 0.150 K/mm3 (0.0-0.012); Nucleated Red Blood Cells Perc 1.3 % (0.0-0.2); Platelet Count Result 184 k/mm3 (150-375); Red Blood Count 4.84 M/mm3 (4.6-6.20); White Blood Count 11.7 K/mm3 (4.5-10.0)
[2025-08-07 10:49] LABS: Alanine Aminotransferase 29 U/L (6-50); Albumin Level 4.9 g/dL (3.5-5.1); Alkaline Phosphatase 125 U/L (38-126); Anion Gap 19 mmol/L (4-12); Aspartate Amino Transferase 49 U/L (17-59); Bilirubin,Total 0.9 mg/dL (0.2-1.3); Blood Urea Nitrogen 8 mg/dL (9-20); Calcium 8.7 mg/dL (8.4-10.2); Carbon Dioxide 15 mmol/L (22-30); Chloride 91 mmol/L (98-107); Estimated Glomerular Filt Rate > 60; Glucose 273 mg/dL (65-110); Magnesium 1.9 mg/dL (1.6-2.3); Potassium 4.8 mmol/L (3.4-5.0); Sodium 125 mmol/L (137-145); Total Protein 9.5 g/dL (6.3-8.2)
[2025-08-07 10:50] LABS: Partial Thromboplastin Time 29.6 Seconds (22.3-36.8)
[2025-08-07 10:51] LABS: INR 1.3; Prothrombin Time 16.3 Seconds (11.1-14.7)
[2025-08-07] MEDS: MAGNESIUM SULF 2 GM/WATER 50ML 2 GM/50 ML BAG IVPB (10:52)
[2025-08-07 10:59] LABS: NT Pro B Type Natriuretic Pept 8240 pg/mL (19.9-100); Troponin I 0.056 ng/mL (0.000-0.034)
--- OUTSIDE RECORDS SUMMARY | 2025-08-07 11:00 | XMS_ITS | Clinical Summary ---
Author Organization [facility] D Address [address] [place] [id number] Care Team Providers Care Residential Youth Counselor Name Role Phone Ward Samayoa MD Primary Care Provider [phone] Kenny Hidalgo MD Unavailable [phone] Allergies Active Allergy Reactions Criticality Noted Date Comments Atorvastatin Muscle pain Medium 08/02/2022 Penicillins Hives Medium Medications aspirin 81 mg tablet take 1 tablet by oral route every day 0 0 6 Active Additional Information Patient taking differently:81 mgoral Every morning, Indications: prevention of thrombosis, Informant: Self, Reported on 11/19/2024 tamsulosin (FLOMAX) 0.4 mg capsule,extende d release 24hr take 1 capsule by oral route every day 1/2 hour following the same meal each day 0 0 6 Active Additional Information Patient taking differently:0.4 mgoral Every morning, Indications: benign prostatic hyperplasia with lower urinary tract sx, Informant: Self, Reported on 11/19/2024 nitroglycerin (NITROSTAT) 0.[address] 1 tablet (0.4 mg total) under the tongue every 5 (five) minutes as needed for chest pain 5 Active metoprolol XL (TOPROL-XL) 25 mg extended release tablet Take 1 tablet (25 mg total) by mouth daily 90 tablet 3 1 Active Additional Information Patient taking differently: 12.5 mgoralNightly, Indications: coronary artery disease, Informant: Self, Reported on 11/19/2024 mecobalamin (B12 ACTIVE ORAL)Indication s:supplement Take 1 tablet/chew tab by mouth nightly Active acetaminophen (TYLENOL) 500 mg tabletIndicatio ns:Pain Take 2 tablets (1,000 mg total) by mouth every 6 (six) hours as needed for pain Active cholecalciferol , vitamin D3, (VITAMIN D3 ORAL)Indication s:supplement Take 1 tablet by mouth nightly Active torsemide (DEMADEX) 10 mg tablet Take 1 tablet (10 mg total) by mouth daily 5 Active bimatoprost (LUMIGAN) 0.01 % ophthalmic drops Administer 1 drop into the right eye nightly Active erythromycin (ILOTYCIN) ophthalmic ointment Apply to left eye 2 (two) times a day as needed (mucous discharge) Apply to left eye twice a day as needed for mucous discharge 3.5 g 11 5 Active Active Problems Problem Noted Date Diagnosed Date Nausea and vomiting 11/19/2024 Assessment & Plan (11/20/2024 10:59 AM CDT): - Resolved at this time, presume effects of anesthesia - Cont zofran PRN Assessment & Plan (11/19/2024 10:50 PM CDT): - Resolved at this time, presume effects of anesthesia - Cont zofran PRN CAD (coronary artery disease) 11/19/2024 Assessment & Plan (11/20/2024 10:59 AM CDT): S/p CABG x 2 - Hold ASA until ophthalmology discussion in AM - Cont metoprolol Assessment & Plan (11/19/2024 10:50 PM CDT): - s/p CABG x 2 - Hold ASA until ophthalmology discussion in AM - Cont metoprolol S/P aortic valve replacement with bioprosthetic valve 11/19/2024 Assessment & Plan (11/20/2024 10:59 AM CDT): - Restart ASA per ophthalmology Assessment & Plan (11/19/2024 10:50 PM CDT): - Restart ASA per ophthalmology Blind painful left eye 10/14/2024 Assessment & Plan (11/20/2024 10:59 AM CDT): Patient presenting s/p L eye nucleation (elective) following chronic sequelae of L central retinal artery occlusion - Post-op course complicated by HTN and pain - cont doxycycline 100mg BID for ppx Assessment & Plan (11/19/2024 10:50 PM CDT): - Patient presenting s/p L eye nucleation (elective) following chronic sequelae of L central retinal artery occlusion - Post-op course complicated by HTN and pain - Hold ASA until discussion with ophthalmology in the AM - cont doxycycline 100mg BID for ppx (determine duration per ophtho) - SCDs overnight Central retinal artery occlusion, left eye 09/09 Assessment & Plan (10/11/2024 4:02 PM BANDER HAND): -- Occurred 3 years ago, followed with Dr. Escamilla and has had intravitreal injections. Hx of tube shunt + CE/IOL OS. 3 months ago had a laser OS (based on family description, sounds like a dCPC). Both done with Dr. Gallagher. -- Developed significant photophobia OD after the dCPC OS. Has tried atropine OS with minimal relief. Takes PF a few times a day OS which helps a little. -- Seen by [facility] for cat eval OD, but they believe photophobia is not due to cataract OD, rather a blind painful eye OS. -- RBA of enuc discussed with patient and his family. PLAN -- Proceed with Enucleation OS -- Eventually send back to [facility] for repeat cat eval OD Assessment & Plan (09/09/2024 12:38 PM BANDER HAND): OS. Occurred 3 years ago, followed with Dr. Escamilla and has had intravitreal injections. Hx of tube shunt + CE/IOL OS. 3 months ago had a laser OS (based on family description, sounds like a diode). Both done with Dr. Gallagher. Has had significant photophobia which limits his driving and has impacted his functionality since the laser. Tried atropine with minimal relief. Takes PF a few times a day which helps a little. OS NLP and has been this way for a while per patient. No view to the back, B- scan with vit heme and traction vs stained hyaloid. The difficulty with bright lights OD started after diode OS. My suspicion is that this is not primarily driven by his cataract given he reports vision was fine and had no issues in bright lights prior to the diode. Given he is monocular, although he qualifies for cataract surgery in his right eye, I think there is a low probability this will resolve the symptoms he is presenting with which are likely primarily driven by pain/ photophobia in the NLP eye. We discussed observation as well vs enucleation OS. Patient would like to be evaluated for enucleation next available. Discussed with patient that if symptoms not resolved with enucleation, can re- refer to preop for CE/IOL OD. Cataract, right eye 09/09/2024 Assessment & Plan (09/09/2024 12:35 PM BANDER HAND): See CRVO OD problem for additional details Diabetes mellitus type II, non insulin dependent 08/02/2022 Assessment & Plan (11/20/2024 10:59 AM CDT): Previously on metformin though has self-discontinued due to side effects - SSI with diabetic diet Assessment & Plan (11/19/2024 10:50 PM CDT): - Previously on metformin though has self-discontinued due to side effects - SSI with diabetic diet Assessment & Plan (08/02/2022 9:25 PM BANDER HAND): Per PCP. Status post coronary artery bypass graft 022 Assessment & Plan (08/02/2022 9:20 PM BANDER HAND): Fortunately, he is doing quite well without any symptoms of cardiac ischemia. 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 I do not believe that ever occurred, and he is still on aspirin and clopidogrel. While antiplatelet monotherapy would be reasonable with respect to his heart, he may benefit from Plavix with respect to his prior TIA. The patient is aware of the need for Secondary prevention through aggressive CV risk factor modifications to include: diabetic/glucose control, blood pressure control, LDL control, daily exercise (per guidelines) and achieving and maintaining ideal body weight, etc. Status post coronary artery stent placement 07/14 Assessment & Plan (08/02/2022 9:20 PM BANDER HAND): As above. Transient cerebral ischemia 08/01/2022 Assessment & Plan (08/02/2022 9:21 PM BANDER HAND): As above. Hypertensive urgency 08/01/2022 Assessment & Plan (11/20/2024 10:59 AM CDT): - In setting of post-op pain and recent anesthesia - only on metoprolol XL 12.5mg daily as outpatient - Pain control - administer PRNs as needed Assessment & Plan (11/19/2024 10:50 PM CDT): - In setting of post-op pain and recent anesthesia - only on metoprolol XL 12.5mg daily as outpatient - Pain control - will administer PRNs as needed Assessment & Plan (08/02/2022 9:27 PM BANDER HAND): His blood pressures been under good control on current medications which he will continue. The patient is aware of the need for continued monitoring. Monitor home BP/Keep diary and bring to OV. Call if average BP >140/90 mmHg. Low sodium diet. HLD (hyperlipidemia) 08/01/2022 Assessment & Plan (08/02/2022 9:27 PM BANDER HAND): He did stop his Lipitor several months ago. Unfortunately, I do not have his most recent FLP to determine whether additional lipid lowering therapy is required, but I assume it would be. He is worried about side effects from statins, but I am not sure he is ever had any. If he did, and he was statin intolerant, we could also use PCSK9 inhibitor, Nexletol, or inclisuran. We will try to obtain his most recent lipid values from his PCP or redraw. Patient encounter status 10/13/2015 Overview (11/18/2016): Surgical followup Surgical History Surgery Date Site/Laterality Comments OTHER SURGICAL HISTORY coronary artery disease: redo cabgx3 OTHER SURGICAL HISTORY emergency repair type a aortic dissection, avt (tissue), cabgx3 HERNIA REPAIR Hernia repair CHOLECYSTECTOMY Cholecystectomy OTHER SURGICAL HISTORY coronary stent x2 CARDIAC CATHETERIZATION MOHS SURGERY 08/14/2018 - 08/13/2019 SKIN CANCER EXCISION ear with reconstruction COLONOSCOPY EYE SURGERY Left laser procedure ENUCLEATION 11/19/2024 Left Enucleation with sclera covered implant 2 blind painful OS ([place] / Sejlae) CATARACT EXTRACTION W/ INTRAOCULAR LENS IMPLANT 02/24/2025 Right CEIOL OD (Dr. Kenny Hidalgo) Medical History Medical History Date Comments Type 2 diabetes mellitus Diabete s type 2; Comments: [facility] 10/13/2015 - Anxiety disorder Anxiety Hx Other Medical diverticulitus; Comments: [facility] 10/13/2015 - Depression Depression Hyperlipidemia Hyperlipidemia; Comments: [facility] 10/13/2015 - Hx Other Medical coronary artery disease; Comments: [facility] 10/13/2015 - Type 2 diabetes mellitus Diabete s type 2; Comments: [facility] 01/19/2016 - Hyperlipidemia Hyperlipidemia; Comments: [facility] 01/19/2016 - Hypertension Hypertension Nausea and vomiting 11/19/2024 H/O enucleation of left eyeball 11/19/2024 [place] / [place] Diabetes mellitus type II, n on insulin dependent (HCC) Optic cupping of right eye C/D r atio OD (0.5) 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 Herber Hidalgo Family History Medical History Relation Name Comments Hypertension Father Hypertension; No Known Problems Mother Anesthesia problems Neg Hx Relation Name Status Comments Father Mother Social History Tobacco Use Types Packs/Day Years Used Date Smoking Tobacco: Former Cigarettes Q uit: 1959 Smokeless Tobacco: Never Tobacco Cessation:Counseling Given: Not Answered Alcohol Use Standard Drinks/Week Comments No 0 (1 standard drink = 0.6 oz pur e alcohol) AUDIT-C Answer Date Recorded Q1: How often do you have a drink containing alcohol? Never 11/19/2024 Q2: How many drinks containi ng alcohol do you have on a typical day when you are drinking? Patient does not drink Q3: How often do you have si x or more drinks on one occasion? Never 11/19/2024 Personal Safety Answer Date Recorded Have you ever been in or are you currently in a harmful physical or emotional relationship or is someone making you feel afraid or unsafe? Denies 11/19/2024 Sex and Gender Information Value Date Recorded Sex Assigned at Not on file Legal Sex Male 7:20 PM BANDER HAND Gender Identity Not on file Sexual Orientation Not on file Last Filed Vital Signs Vital Sign Reading Time Taken Comments Blood Pressure 173/76 11/20/2024 9:14 AM CDT Pulse 79 11/20/2024 9:14 AM CDT Temperature 36.4 C (97.5 F) 11/20/2024 4:35 AM CDT Respiratory Rate 18 11/20/2024 4:35 AM CDT Oxygen Saturation 94% 11/20/2024 4:35 AM CDT Inhaled Oxygen Concentration - - Weight 91.4 kg (201 lb 6.4 oz) 11/19/2024 10:39 PM CDT Height 180.3 cm (5' 11) 11/19/2024 10:05 PM CDT Body Mass Index 28.09 11/19/2024 10:05 PM CDT Plan of Treatment Health Maintenance Due Date Last Done Comments Albumin Creatinine Ratio, Urine 1938 Depression Screening 1940 Foot Exam 1938 Hepatitis B Screening 1956 Well Visit 65+ 2003 Zoster Vaccine (2 of 3) 11/05/2010 09/10/2010, 01/02 Pneumococcal vaccine 65+ (2 of 2 - PPSV23, PCV20, or PCV21) 07/01/2019 05/06/2019, 07/28/2003 Hemoglobin A1C 02/28/2023 08/31/2022, 02/25/2020 Covid-19 Vaccine (3 - 2024-2 6 season) 2025 10/12/2020, 09/21/2020 Influenza Vaccine (#1) 2025 9, 05/29/2018, 06/12/2017, Additional history exists Lipid Panel 04/29/2025 04/29/2024, 07/2 12/2022, 08/31/2022, Additional history exists eGFR 11/19/2025 11/19/2024, 08/31/2022 Fall Risk Assessment 11/20/2025 11/20/2024 Dilated Eye Exam 12/17/2025 12/17/2024, , 09/09/2024 DTaP/Tdap/Td Vaccine (2 - Td or Tdap) 05/06/2029 05/06/2019, 10/11/2011, 03/14/2002 Medical Devices Implanted Type Area Sediment Remediation Consultant Device Identifier Shelf Expiration Date Model / Serial / Lot Mid Annette Transplant Srvcs Graft Sft Tis Sclr Whl Whole - [id number] - [id number] Implanted:Qty: 1 on 11/19/2024 by Francisco Menard MD at [facility] Medicine Other - see comments Left: Eye Mid Annette Transplant Srvcs 08/02/2025 WHOLE / [id number] / [id number] Description:Whole sclera [employer] Licha 22mm 22mm Hard Lightweight Inert Virtually Unbreakable [id number] - [id number] - [id number] Implanted:Qty: 1 on 11/19/2024 by Francisco Menard MD at [facility] Medicine Other - see comments Left: Eye [employer] [id number] 03/30/2026 [id number] / [id number] / [id number] Description:Sterile Eye Sphe re Procedures Procedure Name Priority Date/Time Associated Diagnosis Comments EGFR STAT 11/19/2024 11:49 PM CDT LIPID PANEL Routine 03/07/2023 HEMOGLOBIN A1C Routine 08/31/2022 from Last 3 Months or Most Recently Relevant to Health Maintenance Results * eGFR (11/19/2024 11:49 PM CDT) eGFR >90 >=60 mL/min/1. 73 m2 Comment: Interpretive Data Reference Interval Normal >/= 90 mL/min/1.73m2 Mildly decreased* 60 - 89 mL/min/1.73m2 Mildly to moderately decreased 45 - 59 mL/min/1.73m2 Moderately to severely decreased 30 - 44 mL/min/1.73m2 Severely decreased 15 - 29 mL/min/1.73m2 Kidney Failure < 15 mL/min/1.73m2 *Relative to young adult level Estimated glomerular filtration rate is determined by the 2020 CKD-EPI equation recommended by the National Kidney Foundation (A Unifying Approach to GFR Estimation: Recommendations of the NKF-ASK Task Force on Reassessing the Inclusion of Race in Diagnosing Kidney Disease, JASN 2020). The CKD-EPI equation should not be used for patients with unstable renal function and has not been validated in children and those over 70. Current interpretive data was last reviewed 2021. Blood 11/19/2024 11:4 9 PM CDT 11/20/2024 12:45 AM CDT us Sabino Alaniz MD LAB BLOOD ORDERABLES Connie l Result [facility] Department [place] [address] * Lipid panel (03/07/2023) Pathologist [facility] SCRIBED Cholesterol, Total 221 l - h EXTERNAL LAB SCRIBED HDL 43 l - h EXTERNAL LAB SCRIBED LDL 148 l - h EXTERNAL LAB SCRIBED Triglycerides 160 l - h EXTERNAL LAB Blood us Shannan Rosas LAST REPAIRER HELPER LAB BLOOD ORDERABLES Final Resu lt EXTERNAL LAB * (ABNORMAL) Hemoglobin A1c (08/31/2022) Pathologist [facility] SCRIBED Hemoglobin A1c 6.7(A) L - 5.7 EXTERNAL LAB Blood 08/31/2022 Richie Euceda MD LAB BLOOD ORDERABLES Connie l Result EXTERNAL LAB from Last 3 Months or Most Recently Relevant to Health Maintenance Insurance Advance Directives For more information, please contact: [phone] * Full Code (Latest Code Status on File) Date Activated Date Inactivated Comments 11/19/2024 9:57 PM 11/20/2024 3:35 PM * Full Code Date Activated Date Inactivated Comments 11/19/2024 8:19 PM 11/19/2024 8:47 PM Care Teams Residential Youth Counselor Relationship Specialty Start Date End Date Ward Samayoa MD [address] [id number] PCP - General Family Medicine 10/07/24 Kenny Hidalgo MD [address] [facility] [address] [place] [address] Primary Eye Care Provider Ophthalmology 03/18/25
--- OUTSIDE RECORDS SUMMARY | 2025-08-07 11:00 | XMS_ITS | Encounter Summary ---
Author Organization [facility] Address [address] [place] [address] Care Team Providers Care Paradichlorobenzene Tender Name Role Phone Ward Samayoa MD Primary Care Provider [phone] Encounter Details Date Type Department Care Team (Late st Contact Info) Description 09/27/2023 Abstract [facility], [address] [address] Sadiq Ibarra MA Social History Tobacco Use Types Packs/Day Years Used Date Smoking Tobacco: Former Smokeless Tobacco: Never Alcohol Use Standard Drinks/Week Comments No 0 (1 standard drink = 0.6 oz pur e alcohol) AUDIT-C Answer Date Recorded Frequency of Alcohol Consumption Never 08/29/2018 Average Number of Drinks Not on file 019 Frequency of Binge Drinking Not on file 08/14 PHQ-2 Answer Date Recorded PHQ-2 Score 0 07/18/2019 Sex and Gender Information Value Date Recorded Sex Assigned at Not on file Legal Sex Male 10:25 PM CDT Gender Identity Not on file Sexual Orientation Not on file Occupation Industry Job Start Date Job End Date Not on file Not on file Not on file Not on file documented as of this encounter Plan of Treatment Not on file documented as of this encounter Procedures Procedure Name Priority Date/Time Associated Diagnosis Comments HEMOGLOBIN, GLYCOSYLATED Routine 04/29/2024 COMPREHENSIVE METABOLIC PANEL Routine 04/29/2024 LIPID PANEL Routine 04/29/2024 CBC, MANUAL DIFF Routine 04/29/2024 THYROID STIM HORMONE TSH Routine 04/29/2024 LIPID PANEL Routine 03/07/2023 HEMOGLOBIN, GLYCOSYLATED Routine 08/31/2022 COMPREHENSIVE METABOLIC PANEL Routine 08/31/2022 LIPID PANEL Routine 08/31/2022 documented in this encounter Results * COMPREHENSIVE METABOLIC PANEL (04/29/2024) Pathologist [facility] SODIUM S/P/B 134 GLUCOSE 190 mg/dL AST 23 BUN 10 CREATININE S/P/B 0.74 0.7 - 1.3 CALCIUM S/P/B 9.3 POTASSIUM S/P/B 4.6 CHLORIDE S/P/B 98 ALT 23 GFR ESTIMATE 89 us Default History Genericprovider LABORATORY Final Result * LIPID PANEL (04/29/2024) Pathologist [facility] CHOLESTEROL 206 TRIGLYCERIDES 245 HDL 44 LDL (CALCULATED) 122 NON HDL CHOLESTEROL 162 us Default History Genericprovider LABORATORY Final Result * CBC, MANUAL DIFF (04/29/2024) Pathologist [facility] WBC 7.4 HGB 13.4 HCT 41.5 PLT 194 us Default History Genericprovider LABORATORY Final Result * HEMOGLOBIN, GLYCOSYLATED (04/29/2024) HGB A1C 8.5 % us Default History Genericprovider LABORATORY Final Result * THYROID STIM HORMONE TSH (04/29/2024) TSH 3.04 us Default History Genericprovider LABORATORY Final Result * LIPID PANEL (03/07/2023) Pathologist [facility] CHOLESTEROL 221 HDL 43 TRIGLYCERIDES 160 LDL (CALCULATED) 148 03/07/2023 us Default History Genericprovider LABORATORY Final Result * COMPREHENSIVE METABOLIC PANEL (08/31/2022) Pathologist [facility] SODIUM S/P/B 134 GLUCOSE 136 mg/dL AST 20 BUN 11 CREATININE S/P/B 0.75 0.7 - 1.3 CALCIUM S/P/B 9.1 POTASSIUM S/P/B 4.6 CHLORIDE S/P/B 98 ALT 21 GFR ESTIMATE 89 us Default History Genericprovider LABORATORY Final Result * LIPID PANEL (08/31/2022) Pathologist [facility] CHOLESTEROL 209 TRIGLYCERIDES 220 HDL 39 LDL (CALCULATED) 133 NON HDL CHOLESTEROL 170 us Default History Genericprovider LABORATORY Final Result * HEMOGLOBIN, GLYCOSYLATED (08/31/2022) Pathologist [facility] HGB A1C 6.7 % us Default History Genericprovider LABORATORY Final Result documented in this encounter Visit Diagnoses Not on filedocumented in this encounter Additional Health Concerns Assessment Noted Time PHQ-9 Depression Total Score: 0 04/29/20 19 10:31 AM CDT documented as of this encounter Care Teams Paradichlorobenzene Tender Relationship Specialty Start Date End Date Ward Samayoa MD [address] [place] [address] [address] [place] [address] PCP - General FAMILY PRACTICE 09/13/23 documented as of this encounter
--- OUTSIDE RECORDS SUMMARY | 2025-08-07 11:00 | XMS_ITS | Encounter Summary ---
Author Organization [facility] Address [address] [place] [address] Care Team Providers Care Lead Developer Name Role Phone Kenny Gutierrez MD Primary Care Provider Ward Samayoa MD Primary Care Provider [phone] Encounter Details Date Type Department Care Team (Late st Contact Info) Description 11/08/2020 Prep for Procedure [facility] [place], [place] [id number] Gt Singleton MD [address] [id number] Social History Tobacco Use Types Packs/Day Years [...] file Not on file Not on file COVID-19 Exposure Response Date Recorded In the last month, have you been in contact with someone who was confirmed or suspected to have Coronavirus / COVID-19? No / Unsure 10/12/2020 8:45 AM [facility]ANDY documented as of this encounter Plan of Treatment Not on file documented as of this encounter Visit Diagnoses Diagnosis History of colon polyps- Primary Personal history of colonic polyps documented in this encounter Additional Health Concerns Assessment Noted Time PHQ-9 Depression Total Score: 0 04/29/20 19 10:31 AM CDT documented as of this encounter Care Teams Lead Developer Relationship Specialty Start Date End Date Kenny Gutierrez MD [address] [address] PCP - General 03/03/17 09/12/23 Ward Samayoa MD [address] [address] [address] [place], [place] [address] PCP - General FAMILY PRACTICE 09/13/23 documented as of this encounter
--- OUTSIDE RECORDS SUMMARY | 2025-08-07 11:00 | XMS_ITS | Clinical Summary ---
Author Organization [facility] Address [address] [place] [address] Care Team Providers Care Soft Crab Shedder Name Role Phone Ward Samayoa MD Primary Care Provider Allergies Active Allergy Reactions Criticality Noted Date Comments Atorvastatin Myalgias Medium 08/02/2022 Penicillins Unknown,Rash,Other ( see comment) High 10/23/2013 Reaction: Rash, , Medications timolol 0.25 % ophthalmic solution Apply 1 drop to eye daily. Active METOPROLOL SUCCINATE ER 25 MG 24 hr tabletIndicatio ns:Type 2 diabetes mellitus without complication, without long-term current use of insulin ([facility]) TAKE ONE TABLET BY MOUTH DAILY 90 tablet 3 9 Active TAMSULOSIN 0.4 MG CapIndications: Enlarged prostate without lower urinary tract symptoms (luts) TAKE 1 CAPSULE BY MOUTH AT BEDTIME 90 capsule 2 0 Active Additional Information Patient taking differently: 0.4 mg Oral Daily, Reported on 12/24/2024 timolol (TIMOPTIC) 0.5 % ophthalmic solution 4 Active atropine 1 % ophthalmic solution 4 Active prednisoLONE acetate (PRED FORTE) 1 % ophthalmic suspension 4 Active Vitamin D3 125 mcg Tab Take 1 tablet (125 mcg total) by mouth daily. Active Cyanocobalamin (VITAMIN B-12) 50 MCG Tab Active aspirin EC (ECOTRIN) 81 MG tablet Take 1 tablet (81 mg total) by mouth daily. 90 tablet 3 4 Active torsemide (DEMADEX) 10 MG tablet Take 1 tablet (10 mg total) by mouth daily. 90 tablet 1 5 Active nitroglycerin (NITROSTAT) 0.[address] 1 tablet (0.4 mg total) under the tongue every 5 (five) minutes as needed for Chest Pain. 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/2013 Diabetes mellitus 10/23/2013 GERD (gastroesophageal reflux disease) 4 Glaucoma suspect, both eyes 10/23/2013 Hyperlipidemia 10/23/2013 Hypertension 10/23/2013 Immunizations Immunization Administration Dates Next Due Fluzone High Dose - >Age 65 (Prefilled Syringe) 05/06/2019,06/12/2017 Influenza Adult (Generic) 05/06/2019,,06/12/2017,2014 PFIZER COVID-19 (ORIGINAL FORMULATION, PURPLE CAP) mRNA, LNP-S, PF, 30 MCG/0.3 ML DOSE 10/12/2020,09/21/2020 Pneumococcal (Prevnar 13) 05/06/2019 Tdap (Historical Only-select from magnify glass) 05/06/2019 Family History Medical History Relation Comments Cancer Mother COLON Dementia Mother Diabetes Mother Relation Status Comments Father Mother Social History Tobacco [...] file Not on file Not on file Last Filed Vital Signs Vital Sign Reading Time Taken Comments Blood Pressure 142/66 12/24/2024 12:39 PM CDT Pulse 81 12/24/2024 12:39 PM CDT Temperature 37 C (98.6 F) 05/05/2020 1:45 PM CDT Respiratory Rate 16 05/05/2020 1:45 PM CDT Oxygen Saturation 97% 12/24/2024 12:39 PM CDT Inhaled Oxygen Concentration - - Weight 93.4 kg (206 lb) 12/24/2024 12:39 PM CDT Height 177.8 cm (5' 10) 12/24/2024 12:39 PM CDT Body Mass Index 29.56 12/24/2024 12:39 PM CDT Plan of Treatment Health Maintenance Due Date Last Done Comments Zoster Vaccines (1 of 2) 1988 Annual Medicare Wellness Visit 2003 RSV Immunization or 60+ Years (1 - 1-dose 75+ series) 2013 Pneumococcal Vaccine: 50+ Years (2 of 2 - PPSV23, PCV20, or PCV21) 07/01/2019 05/06/2019 Diabetes: Retinopathy Eye Exam 11/26/2021 11/26/2020, 12/03/2019, 09/04/2019 Hemoglobin A1C 10/27/2024 04/29/2024, 08/14, 02/25/2020, Additional history exists COVID-19 Vaccine ( season) 2025 10/12/2020, 09/21/2020 ASCVD LDL 04/29/2025 04/29/2024, 02/12, 08/31/2022, Additional history exists Lipid Panel 04/29/2025 04/29/2024, 02/12, 08/31/2022, Additional history exists Influenza Adult (#1) 2025 05/06/2019, 05/06/2019, 05/29/2018, Additional history exists DTaP, Tdap and Td Vaccines (2 - Td or Tdap) 05/06/2029 05/06/2019 Hepatitis A Vaccines Aged Out No long er eligible based on patient's age to complete this topic Meningococcal B Vaccine Aged Out No l onger eligible based on patient's age to complete this topic Meningococcal Vaccine Aged Out No liz julio césar eligible based on patient's age to complete this topic RSV Immunizations Under 20 Months Aged Out No longer eligible based on patient's age to complete this topic Procedures Procedure Name Priority Date/Time Associated Diagnosis Comments LIPID PANEL Routine 04/29/2024 HEMOGLOBIN, GLYCOSYLATED Routine 04/29/2024 DIABETIC RETINOPATHY EXAM (NEGATIVE)(SCAN ORDER) Routine 11/26/2020 from Last 3 Months or Most Recently Relevant to Health Maintenance Results * HEMOGLOBIN, GLYCOSYLATED (04/29/2024) HGB A1C 8.5 % us Default History Genericprovider LABORATORY Final Result * LIPID PANEL (04/29/2024) CHOLESTEROL 206 TRIGLYCERIDES 245 HDL 44 LDL (CALCULATED) 122 NON HDL CHOLESTEROL 162 us Default History Genericprovider LABORATORY Final Result * DIABETIC RETINOPATHY EXAM (NEGATIVE)(SCAN) (11/26/2020) us Documents Scanned SCANNING Final Result [facility] from Last 3 Months or Most Recently Relevant to Health Maintenance Insurance [employer] Care Teams Soft Crab Shedder Relationship Specialty Start Date End Date Ward Samayoa MD [address] [place] [address] [address] [place], [place] [id number] PCP - General FAMILY PRACTICE 09/13/23
[2025-08-07 11:18] LABS: Beta-Hydroxybutyrate/Acetoace. 0.78 mmol/L (0.02-0.27)
[2025-08-07 11:22] LABS: CRP 3.2 mg/dL (<1.0); Influenza A QL RT-PCR Negative (Negative); Influenza B QL RT-PCR Negative (Negative); RSV RNA, RT-PCR Negative (Negative); SARS-CoV-2 RNA PCR Negative (Negative)
[2025-08-07] MEDS: SODIUM CHLORIDE 0.9% IV 1,000 ML 999 ML IV CONT (12:00)
[2025-08-07 12:14] LABS: Add Urine Microscopic? YES; Appearance Urine Cloudy (Clear); Glucose Urine UA 3+ mg/dL (Negative); Leukocyte Esterase Ur Negative LEU/UL (Negative); Need Manual Microscopic Reviewed; Nitrate Urine Negative (Negative); Non Pathogenic Casts >20; Specific Grav Ur 1.029 (1.001-1.035)
[2025-08-07] MEDS: levoFLOXacin 750 MG/D5W 150 ML 750 MG/150 ML BAG 100 MG IVPB (13:25)
[2025-08-07 13:35] LABS: Alveolar/Arterial O2 Gradient 149.6 mmHg; Fractional Inspired Oxygen 40 %; HCO3 ABG 19.4 mEq/l (22.0-26.0); Oxygen Content ABG 16.8 %vol (16.0-22.0); Oxygen Saturation ABG 97.5 % (95.0-100.0); PCO2 ABG 32.7 mmHg (35.0-45.0); PO2 ABG 98.0 mmHg (80.0-100.0); PO2 FiO2 Ratio Arterial Blood 2.45 %
[2025-08-07 13:47] LABS: Liters per Minute 0.0 LPM; Modified Allen's Test Pass; Site Drawn RIGHT RADIAL
[2025-08-07 13:48] LABS: Non-Invasive Expiratory Pressure 6 CMH2O; Non-Invasive Inspiratory Pressure 12 CMH2O; Non-Invasive Vent Rate 12 /MIN
--- NOTE | 2025-08-07 13:51 | ECG_ITS ---
Test Date: 2025-08-07 13:53:30 Measurements Intervals [place] Rate: 112 P: 0 HI: 0 QRS: 40 QRSD: 124 T: 53 QT: 359 QTc: 491 Interpretive Statements SINUS TACHYCARDIA RIGHT BUNDLE BRANCH BLOCK BASELINE ARTIFACT- V2-V6 ABNORMAL ECG Compared to ECG 08/07/2025 09:06:49 NO SIGNIFICANT CHANGE Electronically Signed On 08-07-2025 16:30:36 INFRASTRUCTURE MANAGER by Karsten Murillo D.O.
[2025-08-07 14:06] LABS: Troponin I 0.138 ng/mL (0.000-0.034)
[2025-08-07] MEDS: diazePAM INJ (*CRX) 10 MG/2 ML SYRINGE 5 MG IV PUSH (14:14)
--- NOTE | 2025-08-07 14:18 | PC.NURSE ---
Pt placed in clean, dry gown and clean, dry linens. Pt repositioned for comfort.
--- NOTE | 2025-08-07 14:45 | PC.NURSE ---
Rectal Tylenol held at this time due to being unable to safely position patient, bipap applied. EDP Carol magaña.
--- NOTE | 2025-08-07 14:46 | PM.IMHP2 ---
H&P: HPI History of Present Illness Date/Time: 08/07/25 14:46 Chief Complaint: Shortness of Breath Narrative: 85 y/o M presents here GERD, chronic constipation, atherosclerotic heart disease, B12 deficiency anemia, hypertension, hyperlipidemia, type 2 diabetes, BPH, coronary artery disease, TIA, and anxiety presents here with shortness of breath. The patient presents here from home on 08/07 via EMS for further evaluation of shortness of breath. HPI obtained through chart review and family report as the patient is currently altered. Per family, the patient had a significant choking episode on Monday (08/05) while drinking tea. Since then he has developed shortness of breath for the past few days. Daughter reports noting that the patient was wheezing last night which prompted them to take him to the emergency department this morning. He arrived and respiratory distress with O2 saturation of 83% on room air. He has no prior supplemental oxygen requirement. The patient's imaging was significant for multifocal pneumonia and bilateral pleural effusions. Per family he has no known history of CHF, however they have noticed that his lower extremities have been more swollen for some time but have worsened within the last week or 2. He does have a a cardiac history significant for open heart surgery, valve replacement, and CAD. They also report that the patient has had a general decline over the last few weeks citing he has had more of a shuffling gait and seems generally weaker. S Initial VS at presentation: 95.3? F, HR 109, R 33, 156/65, and 83% on RA. Now 96% on BiPAP. ED workup showed: WBC 11.7, hemoglobin 13.3, D-dimer elevated, INR 1.3, sodium 125, creatinine 0.67 and GFR >60, gap 19, the glucose 273, lactic type 5. (are repeat 2.6), initial troponin 0.056 and repeat 0.138, beta hydroxy 0.78, and UA was cloudy with 2+ protein/3+ glucose/1+ ketones/1+ blood. Viral PCR negative. CXR showed patchy bilateral airspace disease compatible with pneumonia. Chest CTA showed multifocal pneumonia with moderate pleural effusions. Review of Systems Review of Systems: ROS unobtainable: Yes unobtainable due to mental status PMFSH Past Medical History Medical History Ventral hernia Diverticulosis Chronic constipation Family hx of colon cancer Hx of adenomatous colonic polyps Elevated PSA, less than 10 ng/ml Screening for diabetic retinopathy no diabetic retinopathy on eye exam 07/29/2021. Vitamin B12 deficiency anemia (10/06/21) level low at 309 with goal greater than 400 on 10/06/2021. Normal at 426 on 12/22/2021. Vitamin D deficiency, unspecified (10/06/21) level low at 19.4 with goal greater than 30 on 10/06/2021. normal at 39.8 on 12/22/2021. Myalgia Constipation Hypertension Seasonal allergies GERD (gastroesophageal reflux disease) Hyperlipidemia total cholesterol 128, triglycerides 116, HDL 47 and LDL 86 on 10/06/2021 Diabetes type 2, controlled glucose 138 with hemoglobin A1c 6.9 on 10/06/2021 with urine microalbumin ratio of 7. Glucose 141 with hemoglobin A1c 6.8 on 12/22/2021. 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, 2 vessel + stent 2013 History of ear surgery H/O eye surgery Family History Family History Mother Cancer Father Suicide Grandparent Cancer Grandparent Heart disease Grandparent Cancer Grandparent Person hit by train Social History Social History Smoking status: Never smoker Tobacco type: cigarettes Smoking end date: 08/14/1959 Additional smoking assessment comments: 1 ppd for 5 years Alcohol intake: never Substance use: never Substance use type: does not use Lack of Transportation: No Lack of Food: Never True Current Housing: I Have Housing Concerned About Future Housing: No Difficulty Paying Gas/Electric Bills: No Difficulty Paying for Meds: No Currently Unemployed: No Education: Trade/Vocational Certificate Difficulty w/ Childcare or Family Care: No Living arrangements: with family Spiritual care concerns: No Meds Home Medications and Allergies Home Medications ?Medication ?Instructions ?Recorded ?Confirmed ?Type cholecalciferol (vitamin D3) 125 5,000 unit PO DAILY 10/13/21 08/07/25 History mcg (5,000 unit) tablet cyanocobalamin (vitamin B-12) 1,000 mcg PO DAILY 10/13/21 08/07/25 History 1,000 mcg tablet acetaminophen 500 mg capsule 500 mg PO BID PRN Pain 03/16/22 08/07/25 History timolol maleate 0.5 % eye drops 1 drp EACH EYE BID 03/16/22 08/07/25 History nitroglycerin 0.4 mg sublingual 0.4 mg sublingual Q5M PRN chest 03/28/24 08/07/25 History tablet pain famotidine 40 mg tablet 40 mg PO QHS #90 tabs 07/03/24 08/07/25 Rx aspirin 81 mg tablet,delayed 81 mg PO DAILY 10/03/24 08/07/25 History release (Adult Aspirin Regimen) metoprolol succinate 25 mg 12.5 mg (1/2 x 25 mg) PO DAILY #45 11/25/24 08/07/25 Rx tablet,extended release 24 hr tabs plecanatide 3 mg tablet (Trulance) 3 mg PO DAILY #90 tabs 01/23/25 08/07/25 Rx plecanatide 3 mg tablet (Trulance) 3 mg Tablet#2 Samples 01/23/25 08/07/25 Sample metformin 1,000 mg tablet 500 mg (1/2 x 1,000 mg) PO 03/12/25 08/07/25 Rx BIDWMEAL #60 tabs Allergies Allergy/AdvReac Type Severity Reaction Status Date / Time Penicillins Allergy Severe Hives Verified 08/07/25 16:46 Vital Signs Vital Signs - 24 hr 08/07/25 08:56 08/07/25 08:56 08/07/25 08:56 Temperature 95.3 F L Pulse Rate 109 H Respiratory Rate 33 H Blood Pressure 156/65 H Pulse Oximetry 83 L 85 L 92 Oxygen Delivery Room Air Nasal Cannula Nasal Cannula Oxygen Flow Rate 2 6 08/07/25 09:00 08/07/25 09:01 08/07/25 09:02 Temperature 95.3 F L Pulse Rate 108 H 110 H Respiratory Rate 32 H 31 H Blood Pressure 156/65 H Pulse Oximetry 93 95 Oxygen Delivery Oxygen Flow Rate 08/07/25 09:15 08/07/25 09:30 08/07/25 09:45 Temperature Pulse Rate 108 H 106 H 110 H Respiratory Rate 32 H 32 H 33 H Blood Pressure Pulse Oximetry 100 96 Oxygen Delivery Oxygen Flow Rate 08/07/25 09:45 08/07/25 09:50 08/07/25 10:00 Temperature Pulse Rate 108 H 111 H 107 H Respiratory Rate 32 H 34 H 29 H Blood Pressure Pulse Oximetry 99 100 100 Oxygen Delivery BiPAP Oxygen Flow Rate 08/07/25 10:12 08/07/25 10:39 08/07/25 10:44 Temperature Pulse Rate 104 H 109 H Respiratory Rate 26 H 26 H Blood Pressure Pulse Oximetry 100 Oxygen Delivery BiPAP BiPAP Oxygen Flow Rate 08/07/25 10:54 08/07/25 10:58 08/07/25 11:00 Temperature Pulse Rate 105 H 106 H 107 H Respiratory Rate 28 H 28 H 21 H Blood Pressure 158/57 H Pulse Oximetry Oxygen Delivery Oxygen Flow Rate 08/07/25 11:01 08/07/25 11:16 08/07/25 11:30 Temperature Pulse Rate 108 H 104 H 93 Respiratory Rate 27 H 24 H 19 Blood Pressure 156/63 H 150/48 H 135/53 L Pulse Oximetry Oxygen Delivery Oxygen Flow Rate 08/07/25 11:31 08/07/25 11:45 08/07/25 11:46 Temperature Pulse Rate 98 115 H 108 H Respiratory Rate 22 H 22 H 29 H Blood Pressure 141/76 H Pulse Oximetry 100 100 Oxygen Delivery Oxygen Flow Rate 08/07/25 11:47 08/07/25 12:35 08/07/25 12:38 Temperature 98.9 F Pulse Rate 109 H 103 H 110 H Respiratory Rate 28 H 27 H 30 H Blood Pressure Pulse Oximetry 99 98 99 Oxygen Delivery BiPAP Oxygen Flow Rate 08/07/25 12:59 08/07/25 13:00 08/07/25 13:15 Temperature 99.0 F 99.2 F Pulse Rate 116 H 116 H Respiratory Rate 24 H 24 H Blood Pressure Pulse Oximetry 99 97 Oxygen Delivery BiPAP Oxygen Flow Rate 08/07/25 13:47 08/07/25 13:48 08/07/25 13:50 Temperature 99.2 F 99.2 F Pulse Rate 117 H 114 H Respiratory Rate 31 H 34 H Blood Pressure 136/108 H Pulse Oximetry 94 94 95 Oxygen Delivery High Flow Therapy with Na Oxygen Flow Rate 7 08/07/25 14:05 08/07/25 14:10 08/07/25 14:31 Temperature 98.9 F 98.7 F Pulse Rate 121 H 110 H Respiratory Rate 34 H 35 H 24 H Blood Pressure 188/89 H 158/68 H Pulse Oximetry 97 94 96 Oxygen Delivery BiPAP Oxygen Flow Rate 08/07/25 14:32 Temperature 98.7 F Pulse Rate 109 H Respiratory Rate 24 H Blood Pressure Pulse Oximetry 96 Oxygen Delivery Oxygen Flow Rate Exam Const: Other: , male, elderly, ill-appearing, obtunded HENMT: Face/Nose/Sinus: Normal nares present Mouth: Yes dry mucous membranes (BiPAP in place) Eyes: General: appearance normal, both eyes and all related structures Sclera: sclerae normal Other: 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 PERRLA, 2 mm on the right. Unable to assess EOM. Resp: Other: Bilateral crackles without wheezing. Diminished in the left lower base. Absent in the right lower base. Cardio: Rate: tachycardic Rhythm: regular rhythm Other: +/- murmur? S1-S2 present without ectopy. GI: Other: Abdomen soft, nondistended, nontender. Normoactive bowel sounds in all quadrants. Skin: General skin exam: normal color and no rashes or lesions noted Wounds: no wounds Neuro: Other: A&Ox0 upon initial assessment. Reassessed at 5:30 p.m. and now A&O x4, moving all extremities, +5 in all extremities, no sensory deficits, no speech deficits Extrem: Other: 2+ pitting edema to the bilateral lower extremities, symmetric Psych: Other: Initially unable to assess, now mental status grossly normal at 5:30 p.m. good insight and judgment, very pleasant Results Labs Labs: Short CBC 08/07/25 Range/Units 10:10 WBC 11.7 H (4.5-10.0) K/mm3 Hgb 13.3 L (14.0-18.0) g/dL Hct 41.4 L (42.0-52.0) % Plt Count 184 (150-375) k/mm3 [facility] 08/07/25 08/07/25 09:45 10:24 Sodium Cancelled 125 L Potassium Cancelled 4.8 Chloride Cancelled 91 L Carbon Dioxide Cancelled 15 L BUN Cancelled 8 L Creatinine Cancelled 0.67 L Glucose Cancelled 273 H Calcium Cancelled 8.7 Cardiac Enzymes 08/07/25 08/07/25 Range/Units 10:24 13:24 Troponin I 0.056 H* 0.138 H* D (0.000-0.034) ng/mL Liver Function 08/07/25 08/07/25 Range/Units 09:45 10:24 Total Bilirubin Cancelled 0.9 AST Cancelled 49 ALT Cancelled 29 Alkaline Phosphatase Cancelled 125 Albumin Cancelled 4.9 Urine 08/07/25 Range/Units 11:55 Urine Color Yellow (Yellow) Urine Appearance Cloudy H (Clear) Urine pH 5.0 (5.0-9.0) Ur Specific [place] 1.029 (1.001-1.035) Urine Protein 2+ H (Negative) mg/dL Urine Glucose (UA) 3+ H (Negative) mg/dL Quality VTE Prophylaxis VTE prophylaxis: pharmacologic ordered Assessment and Plan Assessment and plan (1) Sepsis: Qualifiers: Acute respiratory failure type: with hypoxia Sepsis acute organ dysfunction status: with acute organ dysfunction Sepsis type: sepsis due to unspecified organism Severe sepsis acute organ dysfunction type: acute respiratory failure Severe sepsis shock status: without septic shock Qualified Code(s): A41.9 - Sepsis, unspecified organism; R65.20 - Severe sepsis without septic shock; J96.01 - Acute respiratory failure with hypoxia Code(s): A41.9 - Sepsis, unspecified organism Status: Acute Assessment and Plan: Patient meets severe sepsis criteria via heart rate, respiratory rate, temp. Has associated hypoxia, 83% on room air upon arrival with no hypotension. CXR/chest CTA consistent with bilateral multifocal pneumonia. Precipitated by aspiration event on 08/05, significant choking episode while drinking tea. Viral PCR negative. Lactic initially elevated at 5.1, repeat post 1 L bolus 2.6. Currently complicated by concern for new onset CHF given presence of bilateral moderate effusions, worsening peripheral edema over the last few weeks. Currently requiring BiPAP. ABG initially approved in the emergency department with BiPAP, however when they trialed the patient off of BiPAP became significantly diaphoretic and had a worsened general appearance. Placed back on BiPAP, however he was intolerant and required Valium. -given possibility of CHF with, will deviate from 30 mL/kg as he was likely volume overloaded prior to receiving 1 L of fluids. He is also not currently hypotensive. -Cooper catheter for accurate I&Os -lactic 5.1, repeat 2.6. Trend down. -blood cultures obtained on 08/07, follow -sepsis likely related to aspiration pneumonia as he had a significant choking episode a few days ago, initially started on Levaquin. However will transition the patient to meropenem given his significant illness. -continue BiPAP, discussed risks and benefits with the patient's family members. Patient did receive Valium and he is now currently A&O times 0, A&O x3 prior to administration. Given how poorly he did off of the BiPAP, recommended continuing BiPAP despite the risk to him given he could not discontinue his mask if he were to vomit. Will preemptively give Zofran 4 mg IV. Reassess this afternoon. -admission to IMU for close hemodynamic monitoring and continuous BiPAP (2) Respiratory failure with hypoxia: Qualifiers: Chronicity: acute Qualified Code(s): J96.01 - Acute respiratory failure with hypoxia Code(s): J96.91 - Respiratory failure, unspecified with hypoxia Status: Acute Assessment and Plan: Acute respiratory failure secondary to multifocal pneumonia and possible CHF component given moderate effusions. Currently requiring BiPAP. Will forego further fluids due to possible CHF component. Start with gentle IV diuresis and monitor toleration, Lasix 20 mg IV x1. Initial blood-showed acidosis, mildly depleted bicarb. Repeat post BiPAP showed improving acidosis and bicarb. However did not do well off of BiPAP and became diaphoretic/worsening general appearance. -admission to IMU for continuous BiPAP (3) Aspiration pneumonia: Qualifiers: Aspiration pneumonia type: due to vomit Laterality: bilateral Lung location: unspecified part of lung Qualified Code(s): J69.0 - Pneumonitis due to inhalation of food and vomit Code(s): J69.0 - Pneumonitis due to inhalation of food and vomit Status: Acute Assessment and Plan: Imaging, 08/07 CXR 1: Patchy bilateral airspace disease, compatible with pneumonia. Chest CTA 1. Multifocal pneumonia with moderate pleural effusions. Initially started on Levaquin in the emergency department on 08/07. Transitioned to meropenem given severity of his presentation. Discussed at length with the patient's family members prognosis, general plan, and their wishes. While in the emergency department prior to receiving Valium he reported he did not want to be intubated. Discussed that if CPR was rendered he would need to be intubated after. Given this would go against his wishes the family has elected for the patient to be DNR as well as DNI. Family would currently like to continue BiPAP, treatment of the pneumonia, and would like to forego any further workup unless he improves in regards to his pneumonia/respiratory status. -Levaquin transition to meropenem on 08/07 -continuous BiPAP -Tylenol suppository p.r.n. -DuoNebs -start further supportive care once mental status improved and able to tolerate p.o. (i.e. Mucinex, Tessalon Perles, lozenge, etc.) >> reassessed at 5:30 p.m. and patient now awake and return to baseline. Supportive care ordered. -ST evaluation (4) CHF (congestive heart failure): Qualifiers: Heart failure chronicity: acute Heart failure type: unspecified Qualified Code(s): I50.9 - Heart failure, unspecified Code(s): I50.9 - Heart failure, unspecified Status: Acute Assessment and Plan: Moderate bilateral effusions noted on chest CTA. Family reports that he has had peripheral edema to his bilateral lower extremities for some time, however it has worsened in the last few weeks. No previously known history of heart failure. Given the severity of his current illness in regards to his aspiration pneumonia, they would like to forego any further cardiac workup unless see significantly improves in regards to his current infection. Given the patient's peripheral edema, acute respiratory failure, and moderate effusions will trial 20 mg of Lasix IV. If tolerated well will give additional 20 mg evening and start 40 mg IV daily. -trial 20 mg Lasix IV this evening, if tolerated well will give additional 20 mg IV -> 40 mg IV daily. Reassessed, tolerated well. Will give additional doses evening and start daily diuretic. -monitor I&Os -trend renal function -family currently wishes to forego further cardiac workup unless he improves in regards to his infection (5) Diabetes type 2, controlled: Code(s): E11.9 - Type 2 diabetes mellitus without complications Status: Chronic Assessment and Plan: - hypoglycemia protocol - POC blood glucose q.6h, currently NPO - hold home medications: Metformin - correct regimen ordered - low dose q.6h while NPO (6) Hypertension: Qualifiers: Hypertension type: primary hypertension Qualified Code(s): I10 - Essential (primary) hypertension Code(s): I10 - Essential (primary) hypertension Status: Chronic Assessment and Plan: - chronic, currently 159/82. - hold home medications, currently NPO and altered. Hydralazine p.r.n. for BP greater than 180/90. >> back to baseline upon reassessment, metoprolol resumed. - monitor Plan Patient reassessed at 5:30 p.m. this evening and he is back to baseline. Reporting and general improvement since arrival. Plan to continue BiPAP overnight, patient agreeable with plan. Diet: NPO GI Prophylaxis: Pantoprazole DVT Prophylaxis: Lovenox SQ IV fluids: 1L bolus, plan for diuresis Lines/Tubes: pIV Code Status: DNR/DNI Prior Studies I have reviewed the following patient records and this information was taken into consideration when formulating the assessment and plan.: previous labs, previous ER visits, previous hospitalizations and previous clinic visits Time Spent with Patient Time with patient: 45 - 74 minutes Hospitalist [facility] Advance Care Plan I have confirmed that the patient's Advanced Care Plan is present, code status is documented, or surrogate decision maker is listed in patient medical record.: Yes Medication Reconciliation I have utilized all available resources to obtain, update and review the patients current medications (includes all prescriptions, OTC, herbals, cannabis, and nutritional supplements).: Yes
--- NOTE | 2025-08-07 15:31 | WPCEDHO ---
ED Hand Off Checklist All vitals saved:y IV Site documented:y All med administrations documented:y Triage Note Triage Note Pt to the ED via EMS from for 08/07/25 08:56 evaluation of shortness of breath x a few days. Allergies Penicillins Allergy (Severe, Verified 07/07/25 13:09) Hives Chest pain Family History (Last Reviewed 08/07/25 @ 15:24 by Mohini Weinberg APRN) Mother Cancer Father Suicide Grandparent Cancer Grandparent Heart disease Grandparent Cancer Grandparent Person hit by train Administered/Completed Medications Discontinued Medications Acetaminophen (Acetaminophen 650 Mg Suppository) 650 mg RECTAL ONCE ONE Stop: 08/07/25 13:56 Last Admin: 08/07/25 14:46 Dose: Not Given Documented By: SAJAN Non-Admin Reason: See Notes Albuterol/Ipratropium (Ipratropium 0.5 Mg/Albuterol Sulfate 2.5 Mg (Base) Ampul.Neb 3 Ml) 3 ml INHALATION Q20M RSOA Stop: 08/07/25 10:16 Last Admin: 08/07/25 15:00 Dose: 3 ml Documented By: Admin: 08/07/25 10:15 Dose: 3 ml Documented By: Admin: 08/07/25 09:55 Dose: 3 ml Documented By: HIRAM Diazepam (Diazepam Inj (*Crx) 10 Mg/2 Ml Syringe) 5 mg IV PUSH ONCE ONE Stop: 08/07/25 14:11 Last Admin: 08/07/25 14:14 Dose: 5 mg Documented By: SAJAN Magnesium Sulfate (Magnesium Sulf 2 Gm/Water 50ml) 2 gm in 50 mls @ 50 mls/hr IVPB ONCE STA Stop: 08/07/25 10:32 Last Infusion: 08/07/25 12:00 Dose: Infused Documented By: Admin: 08/07/25 10:52 Dose: 50 mls/hr Documented By: SAJAN Co-signed By: ELMER Sodium Chloride (Normal Saline Iv) 1,000 mls @ 999 mls/hr IV CONT .Q1H1M STA Stop: 08/07/25 11:57 Last Infusion: 08/07/25 14:14 Dose: Infused Documented By: Admin: 08/07/25 12:00 Dose: 999 mls/hr Documented By: SAJAN Levofloxacin/Dextrose (Levaquin 750 Mg/D5w 150 Ml) 750 mg in 150 mls @ 100 mls/hr IVPB ONCE STA Stop: 08/07/25 12:33 Last Infusion: 08/07/25 14:42 Dose: 100 mls/hr Documented By: Infusion: 08/07/25 13:45 Dose: 0 mls/hr Documented By: Admin: 08/07/25 13:25 Dose: 100 mls/hr Documented By: SAJAN Methylprednisolone Sodium Succinate (Methylprednisolone Sod Succ 125 Mg Vial) 125 mg IV PUSH ONCE STA Stop: 08/07/25 09:34 Last Admin: 08/07/25 10:52 Dose: 125 mg Documented By: SAJAN Miscellaneous Information (Please Enter Patient Height And Weight For Medication Dosing) 1 each XX CLARIFY ROSA Stop: 09/06/25 00:00 Last Admin: 08/07/25 11:59 Dose: Not Given Documented By: SAJAN Non-Admin Reason: No Dose Required Notes 08/07/25 14:45 Nurse Note by Amanda Deng Rectal Tylenol held at this time due to being unable to safely position patient, bipap applied. EDP Carol aware. Initialized on 08/07/25 14:45 - END OF NOTE 08/07/25 14:18 Nurse Note by Amanda Deng Pt placed in clean, dry gown and clean, dry linens. Pt repositioned for comfort. Initialized on 08/07/25 14:18 - END OF NOTE 08/07/25 10:15 Respiratory Therapy Note by René Rao ABG DELAYED DUE TO ABG MACHINE IN ED Initialized on 08/07/25 10:15 - END OF NOTE Interventions/Assessments IV / Saline Lock, Insert Start: 08/07/25 09:01 Freq: STAT Status: Active Protocol: Document 08/07/25 12:26 AMH (Rec: 08/07/25 12:26 [facility] [id number]) IV Assessment Peripheral Access Right Antecubital IV Catheter Access Initiated IV Insertion Date 08/07/25 IV Insertion Time 12: Catheter Gauge 20 Ultrasound Used for Yes: 1.88 Placement IV Site Assessment WNL IV Care and WNL Maintenance PA: Cardiovascular Assessment Start: 08/07/25 08:55 Freq: Status: Active Protocol: Document 08/07/25 10:44 ELB (Rec: 08/07/25 10:45 ELB [id number]) Cardiovascular Assessment Cardiovascular Dyspnea Symptoms Skin Description Normal Color Heart Sounds Normal Jugular Vein None Distention Rhythm/Strength Monitor EKG Rythm Sinus Rhythm Chest Pain Assessment Description and Dyspnea Symptoms PA: Respiratory Assessment Start: 08/07/25 08:55 Freq: Status: Active Protocol: Document 08/07/25 10:44 ELB (Rec: 08/07/25 10:45 ELB [id number]) Respiratory Assessment Symptoms Shortness of Breath at Rest,Shortness of Breath With Exertion,Wheezing Effort Abdominal Breathing,Accessory Muscle Use,Short of Breath Pattern Tachypnea Chest Expansion Symmetrical Adult Capillary Normal/Less than 2 Seconds Refill Bilateral Throughout Phase Inspiratory & Expiratory Lung Sounds Wheezes Oxygen Delivery Oxygen Delivery BiPAP Last Vital Signs Temperature 98.6 F 08/07/25 15:16 Pulse Rate 114 H 08/07/25 15:16 Respiratory Rate 29 H 08/07/25 15:16 Pulse Oximetry 98 08/07/25 15:16 Blood Pressure 159/82 H 08/07/25 15:16 Blood Pressure Mean 104 08/07/25 15:16 Oxygen Delivery BiPAP 08/07/25 14:05 Oxygen Flow Rate 7 08/07/25 13:48 Weight 82 kg 08/07/25 11:45 Last Result - Abnormals Only WBC 11.7 K/mm3 (4.5-10.0) H 08/07/25 10:10 Hgb 13.3 g/dL (14.0-18.0) L 08/07/25 10:10 Hct 41.4 % (42.0-52.0) L 08/07/25 10:10 RDW 25.0 % (11.5-14.5) H 08/07/25 10:10 Immature Gran % (Auto) 8.4 % (0-0.5) H 08/07/25 10:10 Neut % (Auto) 74.6 % (45.5-73.1) H 08/07/25 10:10 Lymph % (Auto) 8.2 % (18.3-44.2) L 08/07/25 10:10 [place] # (Auto) 0.9 K/mm3 (0.1-0.6) H 08/07/25 10:10 Abs Immat Gran (auto) 0.98 K/mm3 (0.00-0.031) H 08/07/25 10:10 Absolute Neuts (auto) 8.7 K/mm3 (1.3-6.7) H 08/07/25 10:10 Absolute Nucleated RBC 0.150 K/mm3 (0.0-0.012) H 08/07/25 10:10 Nucleated RBC % 1.3 % (0.0-0.2) H 08/07/25 10:10 % Immature Plt Fraction 20.9 % (0.9-11.2) H 08/07/25 10:10 PT 16.3 Seconds (11.1-14.7) H 08/07/25 10:24 D-Dimer 1.69 ug/mL (<0.48) H 08/07/25 10:24 ABG pH 7.282 (7.350-7.450) L* 08/07/25 09:33 ABG pCO2 32.7 mmHg (35.0-45.0) L 08/07/25 13:25 ABG pO2 150.2 mmHg (80.0-100.0) H 08/07/25 09:33 ABG HCO3 19.4 mEq/l (22.0-26.0) L 08/07/25 13:25 Sodium 125 mmol/L (137-145) L 08/07/25 10:24 Chloride 91 mmol/L (98-107) L 08/07/25 10:24 Carbon Dioxide 15 mmol/L (22-30) L 08/07/25 10:24 Anion Gap 19 mmol/L (4-12) H 08/07/25 10:24 BUN 8 mg/dL (9-20) L 08/07/25 10:24 Creatinine 0.67 mg/dL (0.7-1.3) L 08/07/25 10:24 Glucose 273 mg/dL (65-110) H 08/07/25 10:24 POC Capillary Glucose 289 mg/dl (65-105) H 08/07/25 09:54 Lactic Acid 2.6 mmol/L (0.7-2.0) H 08/07/25 13:24 Troponin I 0.138 ng/mL (0.000-0.034) H* D 12/25/25 13:24 C-Reactive Protein 3.2 mg/dL (<1.0) H 08/07/25 10:24 NT-Pro-B Natriuret Pep 8240 pg/mL (19.9-100) H 08/07/25 10:24 Total Protein 9.5 g/dL (6.3-8.2) H 08/07/25 10:24 Beta-Hydroxybutyrate/Acetoacetate 0.78 mmol/L (0.02-0.27) H 08/07/25 10:24 Urine Appearance Cloudy (Clear) H 08/07/25 11:55 Urine Protein 2+ mg/dL (Negative) H 08/07/25 11:55 Urine Glucose (UA) 3+ mg/dL (Negative) H 08/07/25 11:55 Urine Ketones 1+ mg/dL (Negative) H 08/07/25 11:55 Ur Blood (Man) 1+ (Negative) H 08/07/25 11:55 Most Recent Suicide Severity Rating Suicide Severity Rating NO RISK INDICATED 08/07/25 08:56
[2025-08-07] MEDS: FUROSEMIDE INJ 40 MG/4 ML VIAL 20 MG IV PUSH ×2 (15:55→18:14)
[2025-08-07] MEDS: ONDANSETRON INJ 4 MG/2 ML VIAL IV PUSH (15:55)
[2025-08-07] MEDS: PANTOPRAZOLE SODIUM IV 40 MG VIAL IV PUSH (15:55)
[2025-08-07] MEDS: MEROPENEM 1 GM in SODIUM CHLORIDE 0.9% IV 100 ML 200 ML IVPB ×2 (16:18→21:02)
--- NOTE | 2025-08-07 17:17 | ADMGEN ---
This patient, Bennett Merlos, was admitted to IMU Room 231-01. Patient/family oriented to hospital policies and general routines including ID bracelet, bed and alarms, visiting hours, pain management, procedures, bathroom and other care routines, personal items, smoking policy, room service/diet, and visiting hours. Information on how to activate the Rapid Response Team has been discussed. Patient/Family are encouraged to report perceived risks to care and to ask questions if they do not understand what they are told or what they should do. Patient resting in bed. A&Ox4. Able to make needs and concerns known. Voiced no complaints or concerns at this time. Admission assessment completed and documented. Family at bedside. Bed in low and locked position. Call light in reach. Bed alarm on. Patient is wearing Bipap at this time. Will continue to monitor. Kate Rosas RN.
[2025-08-07] MEDS: INSULIN ASPART (*BKC) 100 UNITS/ML SUB-Q (17:43)
[2025-08-07 19:21] LABS: Troponin I 0.260 ng/mL (0.000-0.034)
[2025-08-07 19:25] LABS: Procalcitonin 0.1 ng/mL
[2025-08-07] MEDS: guaiFENesin 12 HR 600 MG TABCR PO (21:02)
[2025-08-07] MEDS: LATANOPROST 0.005% OP SOLN 2.5 ML BTL 1 DROP RIGHT EYE (21:49)
[2025-08-08] VITALS (25 sets, daily range): BP systolic 106–120; BP diastolic 49–53; PULSE 93–115; RESP 16–93; TEMP 36.7–36.9; O2SAT 21–98
[2025-08-08] MEDS: INSULIN ASPART (*BKC) 100 UNITS/ML SUB-Q (00:17)
[2025-08-08] MEDS: IPRATROPIUM 0.5 MG/ALBUTEROL SULFATE 2.5 MG (BASE) AMPUL.NEB 3 ML INHALATION ×3 (02:29→20:39)
[2025-08-08 04:21] LABS: Hematocrit 32.5 % (42.0-52.0); Hemoglobin 10.7 g/dL (14.0-18.0); Immature Granulocyte Percent A 8.5 % (0-0.5); Immature Platelet Fraction Pct 19.3 % (0.9-11.2); Lymphocytes Absolute Auto 1.03 K/mm3 (0.9-3.2); Mean Corpuscular HGB Conc 32.9 g/dl (32-36); Mean Corpuscular Hemoglobin 27.6 pg (26-34); Mean Corpuscular Volume 83.8 fl (80-100); Nucleated Red Blood Cells Absolute Auto 0.110 K/mm3 (0.0-0.012); Nucleated Red Blood Cells Perc 1.0 % (0.0-0.2); Platelet Count Result 153 k/mm3 (150-375); Red Blood Count 3.88 M/mm3 (4.6-6.20); White Blood Count 11.2 K/mm3 (4.5-10.0)
[2025-08-08 04:30] LABS: Anion Gap 10 mmol/L (4-12); Blood Urea Nitrogen 11 mg/dL (9-20); Calcium 8.2 mg/dL (8.4-10.2); Carbon Dioxide 23 mmol/L (22-30); Chloride 96 mmol/L (98-107); Estimated CRCL calculation 70 ml/min; Estimated Glomerular Filt Rate > 60; Glucose 166 mg/dL (65-110); Sodium 129 mmol/L (137-145)
[2025-08-08 04:39] LABS: Potassium 4.2 mmol/L (3.4-5.0)
[2025-08-08 04:58] LABS: Burr Cells 1+; Ovalocytes Occasional
[2025-08-08 04:59] LABS: Poikilocytosis 1+; Schistocytes None Seen
[2025-08-08] MEDS: MEROPENEM 1 GM in SODIUM CHLORIDE 0.9% IV 100 ML 200 ML IVPB ×3 (06:30→22:32)
[2025-08-08] MEDS: CHOLECALCIFEROL (VITAMIN D3) 125 MCG (5,000 UNITS) TABLET PO (08:55)
[2025-08-08] MEDS: guaiFENesin 12 HR 600 MG TABCR PO ×2 (08:55→21:06)
[2025-08-08] MEDS: ASPIRIN 81 MG ENTERIC TABLET PO (08:56)
[2025-08-08] MEDS: CYANOCOBALAMIN 1,000 MCG TABLET 1000 MCG PO (08:56)
[2025-08-08] MEDS: METOPROLOL SUCCINATE EXT REL 12.5 MG TABCR PO (08:56)
[2025-08-08] MEDS: FUROSEMIDE INJ 40 MG/4 ML VIAL IV PUSH (08:58)
[2025-08-08] MEDS: PANTOPRAZOLE SODIUM IV 40 MG VIAL IV PUSH (08:59)
[2025-08-08] MEDS: ENOXAPARIN 40 MG/0.4 ML SYRINGE SUB-Q (08:59)
--- NOTE | 2025-08-08 09:00 | PCSTNOTE ---
Please refer to the Bedside Swallow Evaluation in the EMR. Please note, silent aspiration cannot be ruled out at bedside. Pt is a 85 year old male with a past medical history of GERD, chronic constipation, atherosclerotic heart disease, B12 deficiency anemia, hypertension, hyperlipidemia, type 2 diabetes, BPH, coronary artery disease, TIA, and anxiety. This admission he presents with shortness of breath. Per family, the patient had a significant choking episode on Monday (08/05) while drinking tea. Since then he has developed shortness of breath for the past few days. Daughter reports noting that the patient was wheezing last night which prompted them to take him to the emergency department this morning. Bedside swallow orders received due to pt currently presenting with pneumonia suspected from recent aspiration event. Upon DISPATCH MANAGER arrival, RN reports that pt has been weened from BiPAP and is now requiring minimal oxygen support. RN agreeable to evaluation and present for a majority of the evaluation. Pt with son-in-law and daughter present at bedside. Pt is a relatively good historian of previous events and reports that he has noted an increase in coughing/choking during meals (about 1-2x per meal). Pt reports an occasional globus sensation at the level of the larynx; however is unable to state specific consistencies that are difficult for him. An oral mechanism exam was completed this date and was found to be remarkable for a hoarse/raspy voice. PO trials consisted of ice chips, thin liquid water via teaspoon, cup edge, and straw, and pudding. Pt demonstrated an timely oral phase of swallowing across all consistencies with not residue observed. Pt demonstrated throat clearing x1 and delayed coughing x1 throughout trials. Throat clearing was noted on teaspoon of thin liquids x1 and delayed coughing was noted after cup edge drinks of thin liquids. Of note, coughing was noted after RN administered medications with sips of thin liquids via cup edge. This could be indicative of aspiration. No overt signs and symptoms of aspiration were noted with all other consistencies. Given his current diagnosis of pneumonia that is suspected to be due to aspiration, his self reported difficulty swallowing throughout meals, and presentation at the bedside, it is recommended that an MBS be completed to further assess the safety of his swallow. Recommendations: 1. NPO pending MBS; ice chips for comfort with RN or trusted family 2. Ice chips should only be given when pt is in an upright position. 3. Complete MBS to further assess swallow function and recommend a diet
[2025-08-08 09:06] LABS: Total Protein Urine Random 18 mg/dL; Ur Ttl Prot Creatinine Ratio 0.18 mg/mg (0-0.20)
--- NOTE | 2025-08-08 11:28 | PC.NURSE ---
taken down for mod barrium swallow by w/c with 2L 02
--- NOTE | 2025-08-08 12:33 | PC.NURSE ---
pt returned from [facility] via w/c, to restroom with assist, sitting up in chair, rt in room to evaluate need for continued 02
--- NOTE | 2025-08-08 13:45 | P.PNIM_ITS ---
Assessment and Plan Assessment and Plan (1) Sepsis: Qualifiers: Acute respiratory failure type: with hypoxia Sepsis acute organ dysfunction status: with acute organ dysfunction Sepsis type: sepsis due to unspecified organism Severe sepsis acute organ dysfunction type: acute respiratory failure Severe sepsis shock status: without septic shock Qualified Code(s): A41.9 - Sepsis, unspecified organism; R65.20 - Severe sepsis without septic shock; J96.01 - Acute respiratory failure with hypoxia Code(s): A41.9 - Sepsis, unspecified organism Status: Acute Assessment and Plan: Patient alert at bedside S/p BiPAP CT Chest showed multifocal pneumonia Continue Meropenem and Doxycycline monitor cultures (2) Respiratory failure with hypoxia: Qualifiers: Chronicity: acute Qualified Code(s): J96.01 - Acute respiratory failure with hypoxia Code(s): J96.91 - Respiratory failure, unspecified with hypoxia Status: Acute Assessment and Plan: S/p BIPAP Nwo on room air continue monitoring (3) Aspiration pneumonia: Qualifiers: Aspiration pneumonia type: due to vomit Laterality: bilateral Lung location: unspecified part of lung Qualified Code(s): J69.0 - Pneumonitis due to inhalation of food and vomit Code(s): J69.0 - Pneumonitis due to inhalation of food and vomit Status: Acute Assessment and Plan: CTA showed Multifocal pneumonia Continue Abx above (4) CHF (congestive heart failure): Qualifiers: Heart failure type: unspecified Heart failure chronicity: acute Qualified Code(s): I50.9 - Heart failure, unspecified Code(s): I50.9 - Heart failure, unspecified Status: Acute Assessment and Plan: continue home lasix CT sshowed pneumonia (5) Diabetes type 2, controlled: Code(s): E11.9 - Type 2 diabetes mellitus without complications Status: Chronic Assessment and Plan: - hypoglycemia protocol - POC blood glucose q.6h, currently NPO - hold home medications: Metformin - correct regimen ordered - low dose q.6h while NPO (6) Hypertension: Qualifiers: Hypertension type: primary hypertension Qualified Code(s): I10 - Essential (primary) hypertension Code(s): I10 - Essential (primary) hypertension Status: Chronic Assessment and Plan: - chronic, currently 159/82. - hold home medications, currently NPO and altered. Hydralazine p.r.n. for BP greater than 180/90. >> back to baseline upon reassessment, metoprolol resumed. 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 PERRLA, 2 mm on the right. Unable to assess EOM. Resp: Other: Bilateral crackles without wheezing. Diminished in the left lower base. Absent in the right lower base. Cardio: Rate: tachycardic Rhythm: regular rhythm Other: +/- murmur? S1-S2 present without ectopy . GI: Other: Abdomen soft, nondistended, nontender. Normoactive bowel sounds in all quadrants. Skin: General skin exam: normal color and no rashes or lesions noted Wounds: no wounds Neuro: Other: A&Ox0 upon initial assessment. Reassessed at 5:30 p.m. and now A&O x4, moving all extremities, +5 in all extremities, no sensory deficits, no speech deficits Extrem: Other: 2+ pitting edema to the bilateral lower extremities, symmetric Psych: Other: Initially unable to assess, now mental status grossly normal at 5:30 p.m. good insight and judgment, very pleasant Objective Data Vital Signs Vital Signs: Vital Signs - 24 hr 08/07/25 13:47 08/07/25 13:48 08/07/25 13:50 Temperature 99.2 F 99.2 F Pulse Rate 117 H 114 H Respiratory Rate 31 H 34 H Blood Pressure 136/108 H Pulse Oximetry 94 94 95 Oxygen Delivery High Flow Therapy with Na Oxygen Flow Rate 7 Fraction of Inspired Oxygen 08/07/25 14:05 08/07/25 14:10 08/07/25 14:31 Temperature 98.9 F 98.7 F Pulse Rate 121 H 110 H Respiratory Rate 34 H 35 H 24 H Blood Pressure 188/89 H 158/68 H Pulse Oximetry 97 94 96 Oxygen Delivery BiPAP Oxygen Flow Rate Fraction of Inspired Oxygen 08/07/25 14:32 08/07/25 14:53 08/07/25 15:00 Temperature 98.7 F 98.6 F 98.7 F Pulse Rate 109 H 101 H 99 Respiratory Rate 24 H 22 H 21 H Blood Pressure Pulse Oximetry 96 97 97 Oxygen Delivery Oxygen Flow Rate Fraction of Inspired Oxygen 08/07/25 15:01 08/07/25 15:15 08/07/25 15:16 Temperature 98.7 F 98.6 F 98.6 F Pulse Rate 99 113 H 114 H Respiratory Rate 22 H 31 H 29 H Blood Pressure 137/62 159/82 H Pulse Oximetry 98 98 98 Oxygen Delivery Oxygen Flow Rate Fraction of Inspired Oxygen 08/07/25 16:01 08/07/25 16:05 08/07/25 16:10 Temperature 97.7 F Pulse Rate 117 H Respiratory Rate 36 H 32 H Blood Pressure 153/64 H Pulse Oximetry 98 98 95 Oxygen Delivery BiPAP BiPAP Oxygen Flow Rate 7 Fraction of Inspired Oxygen 40 08/07/25 18:00 08/07/25 20:00 08/07/25 20:00 Temperature Pulse Rate 109 H 100 Respiratory Rate Blood Pressure Pulse Oximetry 98 Oxygen Delivery BiPAP Oxygen Flow Rate Fraction of Inspired Oxygen 35 08/07/25 20:14 08/07/25 20:39 08/07/25 20:39 Temperature 98.1 F Pulse Rate 102 H 105 H 105 H Respiratory Rate 28 H 28 H 28 H Blood Pressure 123/51 L Pulse Oximetry 98 98 98 Oxygen Delivery BiPAP BiPAP Oxygen Flow Rate Fraction of Inspired Oxygen 40 08/07/25 20:39 08/07/25 20:50 08/07/25 22:00 Temperature Pulse Rate 105 H 106 H 108 H Respiratory Rate 28 H 26 H Blood Pressure Pulse Oximetry Oxygen Delivery Oxygen Flow Rate Fraction of Inspired Oxygen 08/07/25 23:40 08/08/25 00:00 08/08/25 00:00 Temperature 98.0 F Pulse Rate 108 H 103 H Respiratory Rate 26 H Blood Pressure 121/47 L Pulse Oximetry 96 90 Oxygen Delivery BiPAP Oxygen Flow Rate Fraction of Inspired Oxygen 35 08/08/25 02:00 08/08/25 02:29 08/08/25 02:29 Temperature Pulse Rate 103 H 99 99 Respiratory Rate 23 H 21 H Blood Pressure Pulse Oximetry 97 97 Oxygen Delivery BiPAP BiPAP Oxygen Flow Rate Fraction of Inspired Oxygen 35 08/08/25 02:29 08/08/25 02:45 08/08/25 04:00 Temperature Pulse Rate 99 102 H Respiratory Rate 21 H 23 H Blood Pressure Pulse Oximetry 90 Oxygen Delivery BiPAP Oxygen Flow Rate Fraction of Inspired Oxygen 35 08/08/25 04:00 08/08/25 04:48 08/08/25 05:45 Temperature 98.1 F Pulse Rate 100 104 H 101 H Respiratory Rate 27 H 23 H Blood Pressure 120/49 L Pulse Oximetry 97 97 Oxygen Delivery BiPAP Oxygen Flow Rate Fraction of Inspired Oxygen 08/08/25 06:00 08/08/25 08:00 08/08/25 08:00 Temperature 98.1 F Pulse Rate 99 105 H Respiratory Rate 31 H Blood Pressure 113/52 L Pulse Oximetry 98 90 Oxygen Delivery BiPAP Oxygen Flow Rate Fraction of Inspired Oxygen 35 08/08/25 08:00 08/08/25 08:06 08/08/25 08:06 Temperature Pulse Rate 105 H 104 H 104 H Respiratory Rate 26 H 26 H Blood Pressure Pulse Oximetry 97 Oxygen Delivery BiPAP Oxygen Flow Rate Fraction of Inspired Oxygen 08/08/25 08:30 08/08/25 08:36 08/08/25 08:56 Temperature Pulse Rate 101 H 109 H Respiratory Rate 18 Blood Pressure Pulse Oximetry 95 95 Oxygen Delivery Nasal Cannula Nasal Cannula Oxygen Flow Rate 2 2 Fraction of Inspired Oxygen 08/08/25 10:00 08/08/25 12:00 08/08/25 12:00 Temperature 98.1 F Pulse Rate 102 H 100 Respiratory Rate 20 Blood Pressure 106/50 L Pulse Oximetry 95 91 Oxygen Delivery Nasal Cannula Oxygen Flow Rate 1 Fraction of Inspired Oxygen 08/08/25 12:00 08/08/25 12:10 08/08/25 12:19 Temperature Pulse Rate 108 H 104 H 102 H Respiratory Rate 16 18 Blood Pressure Pulse Oximetry 97 95 Oxygen Delivery Nasal Cannula Room Air Oxygen Flow Rate 2 Fraction of Inspired Oxygen Intake/Output Intake/Output: Intake & Output 08/05/25 08/06/25 08/07/25 08/08/25 23:59 23:59 23:59 23:59 Intake Total 1400.0 100 Output Total 2750 750 Balance -1350.0 -650 Meds/Results Medications: Active Medications Generic Name Dose Route Start Last Admin Trade Name Freq PRN Reason Stop Dose Admin Acetaminophen 650 mg 08/07/25 17:39 Acetaminophen 325 Mg Tablet PO Q6H PRN Mild Pain (1-3) or Fever Albuterol/Ipratropium 3 ml 08/07/25 20:00 08/08/25 08:06 Ipratropium 0.5 Mg/Albuterol Sulfate 2.5 Mg (Base) Ampul.Neb 3 Ml INHALATION 3 ml Q6HRT ROSA Administration Artificial Tears 1 drop 08/07/25 21:36 Artificial Tears Ophth Soln 15 Ml Bottle EACH EYE DAILY PRN Dry Eye(s) Aspirin 81 mg 08/08/25 09:00 08/08/25 08:56 Aspirin 81 Mg Enteric Tablet PO 81 mg DAILY ROSA Administration Benzonatate 100 mg 08/07/25 17:39 Benzonatate 100 Mg Capsule PO TID PRN Cough Cyanocobalamin 1,000 mcg 08/08/25 09:00 08/08/25 08:56 Cyanocobalamin 1,000 Mcg Tablet PO 1,000 mcg DAILY ROSA Administration Dextrose 12.5 gm 08/07/25 15:05 Dextrose 50% 25 Gm/50 Ml Syringe IV PUSH PRN PRN Hypoglycemia Protocol Enoxaparin Sodium 40 mg 08/08/25 09:00 08/08/25 08:59 Enoxaparin 40 Mg/0.4 Ml Syringe SUB-Q 40 mg DAILY ROSA Administration Furosemide 40 mg 08/08/25 09:00 08/08/25 08:58 Furosemide Inj 40 Mg/4 Ml Vial IV PUSH 40 mg DAILY ROSA Administration Glucagon 1 mg 08/07/25 15:05 Glucagon For Inj 1 Mg Vial IM PRN PRN Hypoglycemia Protocol Glucose 15 gm 08/07/25 15:05 Glucose Oral Gel 15 Gm Of Glucse In 37.5 Gm Tube PO PRN PRN Hypoglycemia Protocol Guaifenesin 600 mg 08/07/25 21:00 08/08/25 08:55 Guaifenesin 12 Hr 600 Mg Tabcr PO 600 mg Q12HR ROSA Administration Hydralazine HCl 10 mg 08/07/25 16:07 Hydralazine Hcl 20 Mg/Ml Vial IV PUSH Q8H PRN Blood Pressure - High, >180/90 Dextrose 1,000 mls @ 100 mls/hr 08/07/25 15:05 Dextrose 5% 1,000 Ml IVPB PRN PRN Hypoglycemia Protocol Meropenem 1 gm/ Sodium 100 mls @ 200 mls/hr 08/07/25 15:10 08/08/25 07:00 Chloride IVPB Infused Q8HR ROSA Infusion Insulin Aspart 2 - 5 units 08/07/25 18:00 08/08/25 12:32 Insulin Aspart (*Bkc) 100 Units/Ml SUB-Q Not Given Q6HR [facility] Protocol Latanoprost 1 drop 08/07/25 21:35 08/07/25 21:49 Latanoprost 0.005% Op Soln 2.5 Ml Btl RIGHT EYE 1 drop HS ROSA Administration Metoprolol Succinate 12.5 mg 08/08/25 09:00 08/08/25 08:56 Metoprolol Succinate Ext Rel 12.5 Mg Tabcr PO 12.5 mg DAILY ROSA Administration Miscellaneous Information 0 each 08/07/25 00:01 08/08/25 00:23 Plecanatide Nonform Can Pt Bring From Home? XX 09/06/25 00:00 Not Given CLARIFY ROSA Nitroglycerin 0.4 mg 08/07/25 17:37 Nitroglycerin Sl 0.4 Mg Tablet SUBLINGUAL Q5M PRN Chest Pain Non-Formulary Medication 3 mg 08/08/25 09:00 Plecanatide [Trulance] PO 09/07/25 08:59 DAILY [facility] Ondansetron HCl 4 mg 08/07/25 21:00 Ondansetron Inj 4 Mg/2 Ml Vial IV PUSH Q6H PRN Nausea And Vomiting Pantoprazole Sodium 40 mg 08/07/25 15:10 08/08/25 08:59 Pantoprazole Sodium Iv 40 Mg Vial IV PUSH 40 mg QAM ROSA Administration Vitamin D 125 mcg 08/08/25 09:00 08/08/25 08:55 Cholecalciferol (Vitamin D3) 125 Mcg (5,000 Units) Tablet PO 125 mcg DAILY ROSA Administration Radiology Results: ITS Impressions Chest X-Ray 08/07/25 11:11 Impression: 1: Patchy bilateral airspace disease, compatible with pneumonia. Chest CTA 08/07/25 13:10 IMPRESSION: 1. Multifocal pneumonia with moderate pleural effusions. Modified Barium Swallow 08/08/25 13:10 IMPRESSION: Mild pharyngeal dysphagia with 1 episode of laryngeal penetration with aspiration. Please correlate with speech pathologist findings and specific feeding recommendations. Labs Labs: Laboratory Results - last 24 hr 08/07/25 08/07/25 08/07/25 13:24 13:25 17:29 WBC RBC Hgb Hct MCV MCH MCHC RDW Plt Count MPV Immature Gran % (Auto) Neut % (Auto) Lymph % (Auto) [place] % (Auto) Eos % (Auto) Baso % (Auto) Lymph # (Auto) [place] # (Auto) Eos # (Auto) Baso # (Auto) Abs Immat Gran (auto) Absolute Neuts (auto) Absolute Nucleated RBC Band Neutrophils % Nucleated RBC % Platelet Estimate % Immature Plt Fraction Poikilocytosis Ovalocytes [place] Cells Schistocytes Puncture Site Right radial ABG pH 7.390 ABG pCO2 32.7 L ABG pO2 98.0 ABG PO2/FiO2 Ratio 2.45 ABG HCO3 19.4 L ABG O2 Saturation 97.5 ABG O2 Content 16.8 ABG Base Excess -4.7 A-a Gradient 149.6 Oxyhemoglobin 96.4 Total Hemoglobin 12.3 O2 Delivery Device Non-invasive vent O2 Liters/Min 0.0 Vent Rate 12 FiO2 40 Expiratory Pressure 6 Inspiratory Pressure 12 Sodium Potassium Chloride Carbon Dioxide Anion Gap BUN Creatinine Estim Creat Clear Calc Estimated GFR Glucose POC Capillary Glucose 216 H Serum Osmolality Lactic Acid 2.6 H Calcium Troponin I 0.138 H* D Procalcitonin U Random Total Protein Ur Random Sodium Urine Creatinine Protein/Creat Ratio 2 08/07/25 08/07/25 08/08/25 18:46 20:22 00:14 WBC RBC Hgb Hct MCV MCH MCHC RDW Plt Count MPV Immature Gran % (Auto) Neut % (Auto) Lymph % (Auto) [place] % (Auto) Eos % (Auto) Baso % (Auto) Lymph # (Auto) [place] # (Auto) Eos # (Auto) Baso # (Auto) Abs Immat Gran (auto) Absolute Neuts (auto) Absolute Nucleated RBC Band Neutrophils % Nucleated RBC % Platelet Estimate % Immature Plt Fraction Poikilocytosis Ovalocytes [place] Cells Schistocytes Puncture Site ABG pH ABG pCO2 ABG pO2 ABG PO2/FiO2 Ratio ABG HCO3 ABG O2 Saturation ABG O2 Content ABG Base Excess A-a Gradient Oxyhemoglobin Total Hemoglobin O2 Delivery Device O2 Liters/Min Vent Rate FiO2 Expiratory Pressure Inspiratory Pressure Sodium Potassium Chloride Carbon Dioxide Anion Gap BUN Creatinine Estim Creat Clear Calc Estimated GFR Glucose POC Capillary Glucose 207 H Serum Osmolality Lactic Acid Calcium Troponin I 0.260 H* D Procalcitonin 0.1 U Random Total Protein Ur Random Sodium 34 Urine Creatinine 8.7 Protein/Creat Ratio 2 08/08/25 08/08/25 08/08/25 04:10 06:42 12:14 WBC 11.2 H RBC 3.88 L Hgb 10.7 L Hct 32.5 L MCV 83.8 MCH 27.6 MCHC 32.9 RDW 23.9 H Plt Count 153 MPV TNP Immature Gran % (Auto) 8.5 H Neut % (Auto) 73.0 Lymph % (Auto) 9.2 L [place] % (Auto) 8.5 Eos % (Auto) 0.0 Baso % (Auto) 0.8 Lymph # (Auto) 1.03 [place] # (Auto) 1.0 H Eos # (Auto) 0.0 Baso # (Auto) 0.1 Abs Immat Gran (auto) 0.96 H Absolute Neuts (auto) 8.2 H Absolute Nucleated RBC 0.110 H Band Neutrophils % Not Reportable Nucleated RBC % 1.0 H Platelet Estimate Adequate % Immature Plt Fraction 19.3 H Poikilocytosis 1+ Ovalocytes Occasional [place] Cells 1+ Schistocytes None seen Puncture Site ABG pH ABG pCO2 ABG pO2 ABG PO2/FiO2 Ratio ABG HCO3 ABG O2 Saturation ABG O2 Content ABG Base Excess A-a Gradient Oxyhemoglobin Total Hemoglobin O2 Delivery Device O2 Liters/Min Vent Rate FiO2 Expiratory Pressure Inspiratory Pressure Sodium 129 L Potassium 4.2 Chloride 96 L Carbon Dioxide 23 Anion Gap 10 BUN 11 Creatinine 0.70 Estim Creat Clear Calc 70 Estimated GFR > 60 Glucose 166 H POC Capillary Glucose 158 H Serum Osmolality Cancelled Lactic Acid 1.5 Calcium 8.2 L Troponin I Procalcitonin U Random Total Protein 18 Ur Random Sodium Urine Creatinine 100.7 Protein/Creat Ratio 2 0.18 Quality VTE Prophylaxis VTE prophylaxis: pharmacologic ordered
[2025-08-08] MEDS: DOXYCYCLINE IV 100 MG in SODIUM CHLORIDE 0.9% IV 100 ML IVPB (14:43)
--- NOTE | 2025-08-08 17:45 | PCRCNOTE ---
Window of time for administration has passed. See next scheduled administration.
[2025-08-08] MEDS: ARTIFICIAL TEARS OPHTH SOLN 15 ML BOTTLE 1 DROP EACH EYE (21:06)
[2025-08-08] MEDS: LATANOPROST 0.005% OP SOLN 2.5 ML BTL 1 DROP RIGHT EYE (21:06)
[2025-08-09] VITALS (15 sets, daily range): BP systolic 102–140; BP diastolic 43–70; PULSE 93–120; RESP 14–20; TEMP 36.2–37.1; O2SAT 94–100
[2025-08-09] MEDS: IPRATROPIUM 0.5 MG/ALBUTEROL SULFATE 2.5 MG (BASE) AMPUL.NEB 3 ML INHALATION ×2 (01:33→07:36)
[2025-08-09] MEDS: DOXYCYCLINE IV 100 MG in SODIUM CHLORIDE 0.9% IV 100 ML IVPB ×2 (03:27→16:38)
[2025-08-09 04:53] LABS: Hematocrit 35.4 % (42.0-52.0); Hemoglobin 11.5 g/dL (14.0-18.0); Immature Platelet Fraction Pct 19.7 % (0.9-11.2); Mean Corpuscular HGB Conc 32.5 g/dl (32-36); Mean Corpuscular Hemoglobin 27.3 pg (26-34); Mean Corpuscular Volume 83.9 fl (80-100); Platelet Count Result 168 k/mm3 (150-375); Red Blood Count 4.22 M/mm3 (4.6-6.20); White Blood Count 14.6 K/mm3 (4.5-10.0)
[2025-08-09 05:19] LABS: Anisocytosis 1+; Giant Platelets Present; Lymphocytes Absolute Manual 2.92 K/mm3 (1.1-4.5); Lymphocytes Percent Manual 20.0 % (18-44); Metamyelocytes Percent 1 %; Monocytes Absolute Manual 0.73 K/mm3 (0.1-0.90); Monocytes Percent Manual 5 % (3-9); Neutrophils Percent Manual 74 % (46-73); Poikilocytosis 1+; Total Cells Counted 100
[2025-08-09 05:20] LABS: Acanthocytes 1+; Burr Cells 1+; Hypochromasia 1+; Schistocytes Rare; Smudge Cells PRESENT
[2025-08-09 05:21] LABS: Alanine Aminotransferase 19 U/L (6-50); Albumin Level 3.8 g/dL (3.5-5.1); Alkaline Phosphatase 95 U/L (38-126); Anion Gap 6 mmol/L (4-12); Aspartate Amino Transferase 41 U/L (17-59); Bilirubin,Total 0.6 mg/dL (0.2-1.3); Blood Urea Nitrogen 23 mg/dL (9-20); Calcium 8.5 mg/dL (8.4-10.2); Carbon Dioxide 27 mmol/L (22-30); Chloride 99 mmol/L (98-107); Estimated CRCL calculation 58 ml/min; Estimated Glomerular Filt Rate > 60; Glucose 141 mg/dL (65-110); Magnesium 2.2 mg/dL (1.6-2.3); Potassium 4.4 mmol/L (3.4-5.0); Sodium 132 mmol/L (137-145); Total Protein 7.3 g/dL (6.3-8.2)
[2025-08-09 05:26] LABS: Band Neutrophils Percent 0 % (0-6); Neutrophils Absolute Manual 10.80 K/mm3 (1.3-6.7)
[2025-08-09] MEDS: MEROPENEM 1 GM in SODIUM CHLORIDE 0.9% IV 100 ML 200 ML IVPB ×3 (05:58→21:58)
[2025-08-09] MEDS: METOPROLOL SUCCINATE EXT REL 12.5 MG TABCR PO (09:35)
[2025-08-09] MEDS: FUROSEMIDE INJ 40 MG/4 ML VIAL IV PUSH (09:35)
[2025-08-09] MEDS: CYANOCOBALAMIN 1,000 MCG TABLET 1000 MCG PO (09:36)
[2025-08-09] MEDS: ENOXAPARIN 40 MG/0.4 ML SYRINGE SUB-Q (09:36)
[2025-08-09] MEDS: CHOLECALCIFEROL (VITAMIN D3) 125 MCG (5,000 UNITS) TABLET PO (09:36)
[2025-08-09] MEDS: ASPIRIN 81 MG ENTERIC TABLET PO (09:36)
[2025-08-09] MEDS: guaiFENesin 12 HR 600 MG TABCR PO ×2 (09:36→21:59)
--- NOTE | 2025-08-09 12:38 | PM.IMPN2 ---
Assessment and Plan Assessment and Plan (1) Hypertension: Qualifiers: Hypertension type: primary hypertension Qualified Code(s): I10 - Essential (primary) hypertension Code(s): I10 - Essential (primary) hypertension Status: Chronic (2) CHF (congestive heart failure): Qualifiers: Heart failure type: unspecified Heart failure chronicity: acute Qualified Code(s): I50.9 - Heart failure, unspecified Code(s): I50.9 - Heart failure, unspecified Status: Acute (3) CAD (coronary artery disease): Code(s): I25.10 - Atherosclerotic heart disease of [place] coronary artery without angina pectoris Status: Acute Plan Patient is doing markedly better. Currently on 2 L nasal cannula. Wean per protocol. Continue to treat pneumonia, continue Lasix 40 mg IV q.day. Check echocardiogram. Trend troponin to peak. No chest pain. Trend leukocytosis, blood cultures pending. Complains of constipation for about 4 days now. Typically takes Trulance at home however reports it causes diarrhea intermittently. Will try Senokot S1 tab p.o. b.i.d., if it works well will discharge him with this instead of Trulance. Voiding trial. Change DuoNebs from scheduled to p.r.n.. Daughter questioning the significance of his heart rate in the 100s. Advised to monitor this, continue [employer] TE[employer] metoprolol. Pertaining to his aspiration on admission. Barium swallow completed on 08/08/2025 with mild pharyngeal dysphagia with 1 episode of laryngeal penetration with aspiration. Feeding recommendations per speech pathology.. History of stroke, status post left eye prosthesis. Continue aspirin. Patient does not want to take a statin. Patient wishes to be DNR. Diabetic diet, heart healthy diet. Ambulate with assistance, fall precautions. PT/OT. Lovenox 40 mg subQ q.day for DVT prophylaxis. Time Spent With Patient Time with patient: Greater than 35 minutes Subjective Date/time seen: 08/09/25 12:38 Interval history: Discussion held with daughter and patient at bedside. He feels extremely better. No shortness of breath. Has occasional cough with clear sputum production. Had some night sweats last night. Denies chest pain. Review of Systems Review of Systems: All systems reviewed & are unremarkable except as noted in HPI and below (Subjective) Exam Const: General: comfortable and no acute distress Other: A&O x3 HENMT: Mouth: Yes moist mucous membranes Eyes: Other: Right pupil round and reactive to light, left eye prosthesis Resp: Other: Bibasilar crackles Cardio: Other: Systolic murmur, regular rate and rhythm GI: Inspection: non-distended GI Palp: Yes Soft to palpation Extrem: Other: Bilateral lower extremity edema up to the mid tibial region Objective Data Vital Signs Vital Signs: Vital Signs - 24 hr 08/08/25 14:00 08/08/25 16:00 08/08/25 16:00 Temperature 98.5 F Pulse Rate 93 106 H Respiratory Rate 93 H Blood Pressure 119/49 L Pulse Oximetry 98 21 L Oxygen Delivery Nasal Cannula Oxygen Flow Rate 2 Fraction of Inspired Oxygen 08/08/25 16:00 08/08/25 18:00 08/08/25 20:00 Temperature 98.3 F Pulse Rate 113 H 108 H 110 H Respiratory Rate 22 H Blood Pressure 120/53 L Pulse Oximetry 95 Oxygen Delivery Oxygen Flow Rate Fraction of Inspired Oxygen 08/08/25 20:00 08/08/25 20:00 08/08/25 20:39 Temperature Pulse Rate 113 H 113 H 104 H Respiratory Rate 20 20 Blood Pressure Pulse Oximetry 98 Oxygen Delivery Nasal Cannula Oxygen Flow Rate 2 Fraction of Inspired Oxygen 28 08/08/25 20:45 08/08/25 20:48 08/08/25 22:00 Temperature Pulse Rate 115 H 111 H 106 H Respiratory Rate 20 20 Blood Pressure Pulse Oximetry 98 Oxygen Delivery Nasal Cannula Oxygen Flow Rate 2 Fraction of Inspired Oxygen 28 08/09/25 00:00 08/09/25 00:00 08/09/25 00:00 Temperature 98.7 F Pulse Rate 93 109 H 109 H Respiratory Rate 16 16 Blood Pressure 102/70 Pulse Oximetry 95 95 Oxygen Delivery Nasal Cannula Oxygen Flow Rate 2 Fraction of Inspired Oxygen 28 08/09/25 01:34 08/09/25 01:49 08/09/25 02:00 Temperature Pulse Rate 118 H 115 H 120 H Respiratory Rate 20 20 Blood Pressure Pulse Oximetry Oxygen Delivery Oxygen Flow Rate Fraction of Inspired Oxygen 08/09/25 03:34 08/09/25 03:34 08/09/25 04:00 Temperature 98.2 F Pulse Rate 110 H 110 H 117 H Respiratory Rate 20 16 Blood Pressure 136/48 L Pulse Oximetry 95 96 Oxygen Delivery Nasal Cannula Oxygen Flow Rate 2 Fraction of Inspired Oxygen 28 08/09/25 07:35 08/09/25 07:40 08/09/25 08:00 Temperature 98.1 F Pulse Rate 106 H 106 H 107 H Respiratory Rate 18 18 20 Blood Pressure 140/59 L Pulse Oximetry 94 97 Oxygen Delivery Nasal Cannula Oxygen Flow Rate 2 Fraction of Inspired Oxygen 08/09/25 08:00 08/09/25 08:00 08/09/25 09:35 Temperature Pulse Rate 115 H 110 H Respiratory Rate Blood Pressure Pulse Oximetry 97 Oxygen Delivery Nasal Cannula Oxygen Flow Rate 2 Fraction of Inspired Oxygen 08/09/25 10:00 08/09/25 12:00 Temperature 98.0 F Pulse Rate 109 H 95 Respiratory Rate 20 Blood Pressure 130/48 L Pulse Oximetry 100 Oxygen Delivery Oxygen Flow Rate Fraction of Inspired Oxygen Intake/Output Intake/Output: Intake & Output 08/06/25 08/07/25 08/08/25 08/09/25 23:59 23:59 23:59 23:59 Intake Total 1400.0 880 740 Output Total 2750 1850 550 Balance -1350.0 -970 190 Meds/Results Medications: Active Medications Generic Name Dose Route Start Last Admin Trade Name Freq PRN Reason Stop Dose Admin Acetaminophen 650 mg 08/07/25 17:39 Acetaminophen 325 Mg Tablet PO Q6H PRN Mild Pain (1-3) or Fever Albuterol/Ipratropium 3 ml 08/07/25 20:00 08/09/25 07:36 Ipratropium 0.5 Mg/Albuterol Sulfate 2.5 Mg (Base) Ampul.Neb 3 Ml INHALATION 3 ml Q6HRT ROSA Administration Artificial Tears 1 drop 08/07/25 21:36 08/08/25 21:06 Artificial Tears Ophth Soln 15 Ml Bottle EACH EYE 1 drop DAILY PRN Administration Dry Eye(s) Aspirin 81 mg 08/08/25 09:00 08/09/25 09:36 Aspirin 81 Mg Enteric Tablet PO 81 mg DAILY ROSA Administration Benzonatate 100 mg 08/07/25 17:39 Benzonatate 100 Mg Capsule PO TID PRN Cough Cyanocobalamin 1,000 mcg 08/08/25 09:00 08/09/25 09:36 Cyanocobalamin 1,000 Mcg Tablet PO 1,000 mcg DAILY ROSA Administration Dextrose 12.5 gm 08/07/25 15:05 Dextrose 50% 25 Gm/50 Ml Syringe IV PUSH PRN PRN Hypoglycemia Protocol Enoxaparin Sodium 40 mg 08/08/25 09:00 08/09/25 09:36 Enoxaparin 40 Mg/0.4 Ml Syringe SUB-Q 40 mg DAILY ROSA Administration Furosemide 40 mg 08/08/25 09:00 08/09/25 09:35 Furosemide Inj 40 Mg/4 Ml Vial IV PUSH 40 mg DAILY ROSA Administration Glucagon 1 mg 08/07/25 15:05 Glucagon For Inj 1 Mg Vial IM PRN PRN Hypoglycemia Protocol Glucose 15 gm 08/07/25 15:05 Glucose Oral Gel 15 Gm Of Glucse In 37.5 Gm Tube PO PRN PRN Hypoglycemia Protocol Guaifenesin 600 mg 08/07/25 21:00 08/09/25 09:36 Guaifenesin 12 Hr 600 Mg Tabcr PO 600 mg Q12HR ROSA Administration Hydralazine HCl 10 mg 08/07/25 16:07 Hydralazine Hcl 20 Mg/Ml Vial IV PUSH Q8H PRN Blood Pressure - High, >180/90 Dextrose 1,000 mls @ 100 mls/hr 08/07/25 15:05 Dextrose 5% 1,000 Ml IVPB PRN PRN Hypoglycemia Protocol Meropenem 1 gm/ Sodium 100 mls @ 200 mls/hr 08/07/25 15:10 08/09/25 06:32 Chloride IVPB Infused Q8HR ROSA Infusion Doxycycline Hyclate 100 mg/ 100 mls @ 100 mls/hr 08/08/25 16:00 08/09/25 04:30 Sodium Chloride IVPB Infused Q12H ROSA Infusion Insulin Aspart 2 - 5 units 08/07/25 18:00 08/09/25 12:06 Insulin Aspart (*Bkc) 100 Units/Ml SUB-Q Not Given Q6HR ROSA Protocol Latanoprost 1 drop 08/07/25 21:35 08/08/25 21:06 Latanoprost 0.005% Op Soln 2.5 Ml Btl RIGHT EYE 1 drop HS ROSA Administration Metoprolol Succinate 12.5 mg 08/08/25 09:00 08/09/25 09:35 Metoprolol Succinate Ext Rel 12.5 Mg Tabcr PO 12.5 mg DAILY ROSA Administration Nitroglycerin 0.4 mg 08/07/25 17:37 Nitroglycerin Sl 0.4 Mg Tablet SUBLINGUAL Q5M PRN Chest Pain Ondansetron HCl 4 mg 08/07/25 21:00 Ondansetron Inj 4 Mg/2 Ml Vial IV PUSH Q6H PRN Nausea And Vomiting Pantoprazole Sodium 40 mg 08/07/25 15:10 08/09/25 09:36 Pantoprazole Sodium Iv 40 Mg Vial IV PUSH Not Given QAM ROSA Vitamin D 125 mcg 08/08/25 09:00 08/09/25 09:36 Cholecalciferol (Vitamin D3) 125 Mcg (5,000 Units) Tablet PO 125 mcg DAILY ROSA Administration Radiology Results: ITS Impressions Chest X-Ray 08/07/25 11:11 Impression: 1: Patchy bilateral airspace disease, compatible with pneumonia. Chest CTA 08/07/25 13:10 IMPRESSION: 1. Multifocal pneumonia with moderate pleural effusions. Modified Barium Swallow 08/08/25 13:10 IMPRESSION: Mild pharyngeal dysphagia with 1 episode of laryngeal penetration with aspiration. Please correlate with speech pathologist findings and specific feeding recommendations. Labs Labs: Laboratory Results - last 24 hr 08/08/25 08/08/25 08/09/25 18:41 23:53 04:35 WBC 14.6 H RBC 4.22 L Hgb 11.5 L Hct 35.4 L MCV 83.9 MCH 27.3 MCHC 32.5 RDW 24.2 H Plt Count 168 MPV TNP Immature Gran % (Auto) Not Reportable Neut % (Auto) Not Reportable Lymph % (Auto) Not Reportable [place] % (Auto) Not Reportable Eos % (Auto) Not Reportable Baso % (Auto) Not Reportable Lymph # (Auto) Not Reportable [place] # (Auto) Not Reportable Eos # (Auto) Not Reportable Baso # (Auto) Not Reportable Abs Immat Gran (auto) Not Reportable Absolute Neuts (auto) Not Reportable Absolute Nucleated RBC Not Reportable Total Counted 100 Neutrophils % (Manual) 74 H Band Neutrophils % 0 Lymphocytes % (Manual) 20.0 Monocytes % (Manual) 5 Metamyelocytes % 1 Nucleated RBC % Not Reportable Abs Neuts (Manual) 10.80 H Abs Lymphs (Manual) 2.92 Abs Monocytes (Manual) 0.73 Atypical Lymphocytes Present Smudge Cells Present Platelet Estimate Slightly decreased Clumped Platelets Present Large Platelets Present Giant Platelets Present % Immature Plt Fraction 19.7 H Hypochromasia 1+ Poikilocytosis 1+ Anisocytosis 1+ [place] Cells 1+ Acanthocytes (Spur) 1+ Schistocytes Rare Sodium 132 L Potassium 4.4 Chloride 99 Carbon Dioxide 27 Anion Gap 6 BUN 23 H D Creatinine 0.86 Estim Creat Clear Calc 58 Estimated GFR > 60 Glucose 141 H POC Capillary Glucose 179 H 150 H Calcium 8.5 Magnesium 2.2 Total Bilirubin 0.6 AST 41 ALT 19 Alkaline Phosphatase 95 Total Protein 7.3 Albumin 3.8 08/09/25 11:59 WBC RBC Hgb Hct MCV MCH MCHC RDW Plt Count MPV Immature Gran % (Auto) Neut % (Auto) Lymph % (Auto) [place] % (Auto) Eos % (Auto) Baso % (Auto) Lymph # (Auto) [place] # (Auto) Eos # (Auto) Baso # (Auto) Abs Immat Gran (auto) Absolute Neuts (auto) Absolute Nucleated RBC Total Counted Neutrophils % (Manual) Band Neutrophils % Lymphocytes % (Manual) Monocytes % (Manual) Metamyelocytes % Nucleated RBC % Abs Neuts (Manual) Abs Lymphs (Manual) Abs Monocytes (Manual) Atypical Lymphocytes Smudge Cells Platelet Estimate Clumped Platelets Large Platelets Giant Platelets % Immature Plt Fraction Hypochromasia Poikilocytosis Anisocytosis Javon Cells Acanthocytes (Spur) Schistocytes Sodium Potassium Chloride Carbon Dioxide Anion Gap BUN Creatinine Estim Creat Clear Calc Estimated GFR Glucose POC Capillary Glucose 136 H Calcium Magnesium Total Bilirubin AST ALT Alkaline Phosphatase Total Protein Albumin
[2025-08-09] MEDS: SENNA/DOCUSATE SODIUM TABLET 1 TAB PO ×2 (13:09→16:38)
[2025-08-09 13:44] LABS: Troponin I 0.223 ng/mL (0.000-0.034)
--- NOTE | 2025-08-09 14:31 | PC.NURSE ---
This patient, Bennett Merlos, was transferred to [facility] on 08/09/25 at 1431. Personal belongings sent with patient. Report given to SERJIO Pereira. Appropriate documentation sent with patient. Patient resting in bed with family at bedside. Voiced no complaints or concerns at this time. O2@2L. HOB elevated. Bed low and locked. Call light in reach. Bed alarm on. Kate Rosas RN.
--- NOTE | 2025-08-09 14:53 | PC.NURSE ---
Order received for boyer removal. Boyer removed at 1312 and patient tolerated well. 1600ml of yellow urine drained from boyer. Urinal given to patient and explained to call for nurse when needing to urinate and if patient doesn't void will need to scan bladder and possible straight cath or replace boyer. Patient verbalized understanding. Kate Rosas RN.
[2025-08-09 18:07] LABS: Osmolality, Urine 147 mOsmol/kg (.)
[2025-08-09 21:07] LABS: Osmolality, Serum 272 mOsmol/kg (280-301)
[2025-08-09] MEDS: LATANOPROST 0.005% OP SOLN 2.5 ML BTL 1 DROP RIGHT EYE (21:59)
[2025-08-09] MEDS: ARTIFICIAL TEARS OPHTH SOLN 15 ML BOTTLE 1 DROP EACH EYE (21:59)
[2025-08-10] VITALS (9 sets, daily range): BP systolic 128–137; BP diastolic 47–52; PULSE 90–105; RESP 16–18; TEMP 36.1–36.9; O2SAT 94–100
[2025-08-10] MEDS: DOXYCYCLINE IV 100 MG in SODIUM CHLORIDE 0.9% IV 100 ML IVPB ×2 (04:23→16:41)
[2025-08-10] MEDS: MEROPENEM 1 GM in SODIUM CHLORIDE 0.9% IV 100 ML 200 ML IVPB ×3 (05:56→21:01)
[2025-08-10 07:18] LABS: Hematocrit 38.4 % (42.0-52.0); Hemoglobin 12.1 g/dL (14.0-18.0); Immature Platelet Fraction Pct 19.4 % (0.9-11.2); Mean Corpuscular HGB Conc 31.5 g/dl (32-36); Mean Corpuscular Hemoglobin 27.0 pg (26-34); Mean Corpuscular Volume 85.7 fl (80-100); Platelet Count Result 163 k/mm3 (150-375); Red Blood Count 4.48 M/mm3 (4.6-6.20); White Blood Count 13.0 K/mm3 (4.5-10.0)
[2025-08-10 07:36] LABS: Alanine Aminotransferase 22 U/L (6-50); Albumin Level 3.7 g/dL (3.5-5.1); Alkaline Phosphatase 101 U/L (38-126); Anion Gap 5 mmol/L (4-12); Aspartate Amino Transferase 43 U/L (17-59); Bilirubin,Total 0.8 mg/dL (0.2-1.3); Blood Urea Nitrogen 19 mg/dL (9-20); Calcium 8.5 mg/dL (8.4-10.2); Carbon Dioxide 32 mmol/L (22-30); Chloride 98 mmol/L (98-107); Estimated CRCL calculation 69 ml/min; Estimated Glomerular Filt Rate > 60; Glucose 146 mg/dL (65-110); Magnesium 2.2 mg/dL (1.6-2.3); Potassium 4.2 mmol/L (3.4-5.0); Sodium 135 mmol/L (137-145); Total Protein 7.2 g/dL (6.3-8.2)
[2025-08-10 08:22] LABS: Band Neutrophils Percent 0 % (0-6); Lymphocytes Absolute Manual 1.04 K/mm3 (1.1-4.5); Lymphocytes Percent Manual 8 % (18-44); Monocytes Absolute Manual 0.91 K/mm3 (0.1-0.90); Monocytes Percent Manual 7 % (3-9); Neutrophils Absolute Manual 11.05 K/mm3 (1.3-6.7); Neutrophils Percent Manual 85 % (46-73); Smudge Cells PRESENT; Total Cells Counted 100
[2025-08-10 08:23] LABS: Anisocytosis 2+
[2025-08-10 08:24] LABS: Burr Cells 1+; Schistocytes Occasional
[2025-08-10 08:25] LABS: Acanthocytes 1+
[2025-08-10] MEDS: METOPROLOL SUCCINATE EXT REL 12.5 MG TABCR PO (09:33)
[2025-08-10] MEDS: FUROSEMIDE INJ 40 MG/4 ML VIAL IV PUSH (09:34)
[2025-08-10] MEDS: ASPIRIN 81 MG ENTERIC TABLET PO (09:34)
[2025-08-10] MEDS: ENOXAPARIN 40 MG/0.4 ML SYRINGE SUB-Q (09:34)
[2025-08-10] MEDS: SENNA/DOCUSATE SODIUM TABLET 1 TAB PO ×2 (09:34→16:54)
[2025-08-10] MEDS: guaiFENesin 12 HR 600 MG TABCR PO ×2 (09:34→20:54)
[2025-08-10] MEDS: CHOLECALCIFEROL (VITAMIN D3) 125 MCG (5,000 UNITS) TABLET PO (09:34)
[2025-08-10] MEDS: CYANOCOBALAMIN 1,000 MCG TABLET 1000 MCG PO (09:34)
--- NOTE | 2025-08-10 17:29 | P.PNIM_ITS ---
Assessment and Plan Assessment and Plan (1) Hypertension: Qualifiers: Hypertension type: primary hypertension Qualified Code(s): I10 - Essential (primary) hypertension Code(s): I10 - Essential (primary) hypertension Status: Chronic (2) CHF (congestive heart failure): Qualifiers: Heart failure type: unspecified Heart failure chronicity: acute Qualified Code(s): I50.9 - Heart failure, unspecified Code(s): I50.9 - Heart failure, unspecified Status: Acute (3) CAD (coronary artery disease): Code(s): I25.10 - Atherosclerotic heart disease of [place] coronary artery without angina pectoris Status: Acute Plan Patient is doing markedly better. Currently on 2 L nasal cannula although weaning trial has not been performed. Discussed this with nursing. If he is still requiring oxygen supplementation will give another dose of Lasix although his swelling and crackles on the lungs have improved. Patient and family want to forego echocardiogram in follow-up in the outpatient setting with his president. Okay to discharge on Lasix. Trend leukocytosis, blood cultures pending. Monitor bowel movements, started the following on 08/09/2025 - Typically takes Trulance at home however reports it causes diarrhea intermittently. Will try Senokot S1 tab p.o. b.i.d., if it works well will discharge him with this instead of Trulance. DuoNebs changed from scheduled to p.r.n., patient is breathing well. Sinus tachycardia has resolved. Pertaining to his aspiration on admission. Barium swallow completed on 08/08/2025 with mild pharyngeal dysphagia with 1 episode of laryngeal penetration with aspiration. Feeding recommendations per speech pathology.. History of stroke, status post left eye prosthesis. Continue aspirin. Patient does not want to take a statin. Patient wishes to be DNR. Diabetic diet, heart healthy diet. Ambulate with assistance, fall precautions. PT/OT. Lovenox 40 mg subQ q.day for DVT prophylaxis. Time Spent With Patient Time with patient: Greater than 35 minutes Subjective Date/time seen: 08/10/25 17:29 Interval history: Discussion held with daughter and patient at bedside. They would really like for the patient to leave tomorrow on 08/11/2025. Will like to forego echocardiogram, discharging on Lasix only. Patient feels great, wants to return home. Home health therapy is recommended Review of Systems Review of Systems: All systems reviewed & are unremarkable except as noted in HPI and below (Subjective) Exam Const: General: comfortable and no acute distress Other: A&O x3 HENMT: Mouth: Yes moist mucous membranes Eyes: Other: Right pupil round and reactive to light, left eye prosthesis Resp: Effort & Inspection: normal respiratory effort Auscultation: clear to auscultation bilaterally Other: Crackles resolved Cardio: Other: Systolic murmur, regular rate and rhythm GI: Inspection: non-distended GI Palp: Yes Soft to palpation Extrem: Other: Trace pitting edema bilateral lower extremities Objective Data Vital Signs Vital Signs: Vital Signs - 24 hr 08/09/25 21:15 08/09/25 23:03 08/10/25 00:00 Temperature 97.1 F L Pulse Rate 102 H 103 H 100 Respiratory Rate 18 18 Blood Pressure 132/63 Pulse Oximetry 94 97 Oxygen Delivery Nasal Cannula Oxygen Flow Rate 2 08/10/25 04:00 08/10/25 06:32 08/10/25 08:00 Temperature 97.7 F Pulse Rate 105 H 105 H Respiratory Rate 16 Blood Pressure 136/47 L Pulse Oximetry 94 98 Oxygen Delivery Nasal Cannula Oxygen Flow Rate 2 08/10/25 08:00 08/10/25 09:33 08/10/25 10:04 Temperature 98.5 F Pulse Rate 103 H 105 H 99 Respiratory Rate 16 Blood Pressure 128/52 L Pulse Oximetry 100 Oxygen Delivery Oxygen Flow Rate Intake/Output Intake/Output: Intake & Output 08/07/25 08/08/25 08/09/25 08/10/25 23:59 23:59 23:59 23:59 Intake Total 1400.0 880 1400 1030 Output Total 2750 1850 2350 Balance -1350.0 -970 -950 1030 Meds/Results Medications: Active Medications Generic Name Dose Route Start Last Admin Trade Name Freq PRN Reason Stop Dose Admin Acetaminophen 650 mg 08/07/25 17:39 Acetaminophen 325 Mg Tablet PO Q6H PRN Mild Pain (1-3) or Fever Albuterol/Ipratropium 3 ml 08/09/25 12:46 Ipratropium 0.5 Mg/Albuterol Sulfate 2.5 Mg (Base) Ampul.Neb 3 Ml INHALATION Q6HRT PRN shortness of breath Artificial Tears 1 drop 08/07/25 21:36 08/09/25 21:59 Artificial Tears Ophth Soln 15 Ml Bottle EACH EYE 1 drop DAILY PRN Administration Dry Eye(s) Aspirin 81 mg 08/08/25 09:00 08/10/25 09:34 Aspirin 81 Mg Enteric Tablet PO 81 mg DAILY ROSA Administration Benzonatate 100 mg 08/07/25 17:39 Benzonatate 100 Mg Capsule PO TID PRN Cough Cyanocobalamin 1,000 mcg 08/08/25 09:00 08/10/25 09:34 Cyanocobalamin 1,000 Mcg Tablet PO 1,000 mcg DAILY ROSA Administration Dextrose 12.5 gm 08/07/25 15:05 Dextrose 50% 25 Gm/50 Ml Syringe IV PUSH PRN PRN Hypoglycemia Protocol Enoxaparin Sodium 40 mg 08/08/25 09:00 08/10/25 09:34 Enoxaparin 40 Mg/0.4 Ml Syringe SUB-Q 40 mg DAILY ROSA Administration Furosemide 40 mg 08/08/25 09:00 08/10/25 09:34 Furosemide Inj 40 Mg/4 Ml Vial IV PUSH 40 mg DAILY ROSA Administration Glucose 15 gm 08/07/25 15:05 Glucose Oral Gel 15 Gm Of Glucse In 37.5 Gm Tube PO PRN PRN Hypoglycemia Protocol Guaifenesin 600 mg 08/07/25 21:00 08/10/25 09:34 Guaifenesin 12 Hr 600 Mg Tabcr PO 600 mg Q12HR ROSA Administration Hydralazine HCl 10 mg 08/07/25 16:07 Hydralazine Hcl 20 Mg/Ml Vial IV PUSH Q8H PRN Blood Pressure - High, >180/90 Dextrose 1,000 mls @ 100 mls/hr 08/07/25 15:05 Dextrose 5% 1,000 Ml IVPB PRN PRN Hypoglycemia Protocol Meropenem 1 gm/ Sodium 100 mls @ 200 mls/hr 08/07/25 15:10 08/10/25 13:37 Chloride IVPB 200 mls/hr Q8HR ROSA Administration Doxycycline Hyclate 100 mg/ 100 mls @ 100 mls/hr 08/08/25 16:00 08/10/25 16:41 Sodium Chloride IVPB 100 mls/hr Q12H ROSA Administration Insulin Aspart 2 - 5 units 08/09/25 21:00 08/10/25 13:35 Insulin Aspart (*Bkc) 100 Units/Ml SUB-Q Not Given TIDHS ROSA Protocol Latanoprost 1 drop 08/07/25 21:35 08/09/25 21:59 Latanoprost 0.005% Op Soln 2.5 Ml Btl RIGHT EYE 1 drop HS ROSA Administration Metoprolol Succinate 12.5 mg 08/08/25 09:00 08/10/25 09:33 Metoprolol Succinate Ext Rel 12.5 Mg Tabcr PO 12.5 mg DAILY ROSA Administration Nitroglycerin 0.4 mg 08/07/25 17:37 Nitroglycerin Sl 0.4 Mg Tablet SUBLINGUAL Q5M PRN Chest Pain Ondansetron HCl 4 mg 08/07/25 21:00 Ondansetron Inj 4 Mg/2 Ml Vial IV PUSH Q6H PRN Nausea And Vomiting Perflutren Lipid Microsphere 0 ml 08/09/25 12:43 Perflutren Lipid Microspheres 1.5 Ml Vial Diluted To 10 Ml Total Volume IV PUSH 08/12/25 12:44 ONCE PRN adequate visualization Protocol Senna/Docusate Sodium 1 tab 08/09/25 12:45 08/10/25 16:54 Senna/Docusate Sodium Tablet PO 1 tab BID ROSA Administration Vitamin D 125 mcg 08/08/25 09:00 08/10/25 09:34 Cholecalciferol (Vitamin D3) 125 Mcg (5,000 Units) Tablet PO 125 mcg DAILY ROSA Administration Radiology Results: ITS Impressions Chest X-Ray 08/07/25 11:11 Impression: 1: Patchy bilateral airspace disease, compatible with pneumonia. Chest CTA 08/07/25 13:10 IMPRESSION: 1. Multifocal pneumonia with moderate pleural effusions. Modified Barium Swallow 08/08/25 13:10 IMPRESSION: Mild pharyngeal dysphagia with 1 episode of laryngeal penetration with aspiration. Please correlate with speech pathologist findings and specific feeding recommendations. Labs Labs: Laboratory Results - last 24 hr 08/07/25 08/08/25 08/09/25 20:22 04:10 17:03 WBC RBC Hgb Hct MCV MCH MCHC RDW Plt Count MPV Immature Gran % (Auto) Neut % (Auto) Lymph % (Auto) [place] % (Auto) Eos % (Auto) Baso % (Auto) Lymph # (Auto) [place] # (Auto) Eos # (Auto) Baso # (Auto) Abs Immat Gran (auto) Absolute Neuts (auto) Absolute Nucleated RBC Total Counted Neutrophils % (Manual) Band Neutrophils % Lymphocytes % (Manual) Monocytes % (Manual) Nucleated RBC % Abs Neuts (Manual) Abs Lymphs (Manual) Abs Monocytes (Manual) Smudge Cells Platelet Estimate Large Platelets % Immature Plt Fraction Anisocytosis [place]av[place] Cells Acanthocytes (Spur) Schistocytes Sodium Potassium Chloride Carbon Dioxide Anion Gap BUN Creatinine Estim Creat Clear Calc Estimated GFR Glucose POC Capillary Glucose 122 H Serum Osmolality 272 L Calcium Magnesium Total Bilirubin AST ALT Alkaline Phosphatase Total Protein Albumin Urine Osmolality 147 08/09/25 08/10/25 08/10/25 22:03 06:49 07:43 WBC 13.0 H RBC 4.48 L Hgb 12.1 L Hct 38.4 L MCV 85.7 MCH 27.0 MCHC 31.5 L RDW 24.8 H Plt Count 163 MPV TNP Immature Gran % (Auto) Not Reportable Neut % (Auto) Not Reportable Lymph % (Auto) Not Reportable [place] % (Auto) Not Reportable Eos % (Auto) Not Reportable Baso % (Auto) Not Reportable Lymph # (Auto) Not Reportable [place] # (Auto) Not Reportable Eos # (Auto) Not Reportable Baso # (Auto) Not Reportable Abs Immat Gran (auto) Not Reportable Absolute Neuts (auto) Not Reportable Absolute Nucleated RBC Not Reportable Total Counted 100 Neutrophils % (Manual) 85 H Band Neutrophils % 0 Lymphocytes % (Manual) 8 L Monocytes % (Manual) 7 Nucleated RBC % Not Reportable Abs Neuts (Manual) 11.05 H Abs Lymphs (Manual) 1.04 L Abs Monocytes (Manual) 0.91 H Smudge Cells Present Platelet Estimate Adequate Large Platelets Present % Immature Plt Fraction 19.4 H Anisocytosis 2+ [place]av[place] Cells 1+ Acanthocytes ([place]) 1+ Schistocytes Occasional Sodium 135 L Potassium 4.2 Chloride 98 Carbon Dioxide 32 H Anion Gap 5 BUN 19 Creatinine 0.72 Estim Creat Clear Calc 69 Estimated GFR > 60 Glucose 146 H POC Capillary Glucose 159 H 148 H Serum Osmolality Calcium 8.5 Magnesium 2.2 Total Bilirubin 0.8 AST 43 ALT 22 Alkaline Phosphatase 101 Total Protein 7.2 Albumin 3.7 Urine Osmolality 08/10/25 08/10/25 12:11 16:43 WBC RBC Hgb Hct MCV MCH MCHC RDW Plt Count MPV Immature Gran % (Auto) Neut % (Auto) Lymph % (Auto) [place] % (Auto) Eos % (Auto) Baso % (Auto) Lymph # (Auto) [place] # (Auto) Eos # (Auto) Baso # (Auto) Abs Immat Gran (auto) Absolute Neuts (auto) Absolute Nucleated RBC Total Counted Neutrophils % (Manual) Band Neutrophils % Lymphocytes % (Manual) Monocytes % (Manual) Nucleated RBC % Abs Neuts (Manual) Abs Lymphs (Manual) Abs Monocytes (Manual) Smudge Cells Platelet Estimate Large Platelets % Immature Plt Fraction Anisocytosis [place] Cells Acanthocytes ([place]) Schistocytes Sodium Potassium Chloride Carbon Dioxide Anion Gap BUN Creatinine Estim Creat Clear Calc Estimated GFR Glucose POC Capillary Glucose 107 H 173 H Serum Osmolality Calcium Magnesium Total Bilirubin AST ALT Alkaline Phosphatase Total Protein Albumin Urine Osmolality
[2025-08-10] MEDS: LATANOPROST 0.005% OP SOLN 2.5 ML BTL 1 DROP RIGHT EYE (21:15)
[2025-08-10] MEDS: ARTIFICIAL TEARS OPHTH SOLN 15 ML BOTTLE 1 DROP EACH EYE (21:17)
[2025-08-11] VITALS: BP 120/53; PULSE 102; PULSE 103; RESP 18; TEMP 36.6; O2SAT 95
[2025-08-11] MEDS: DOXYCYCLINE IV 100 MG in SODIUM CHLORIDE 0.9% IV 100 ML IVPB (03:49)
[2025-08-11 04:00] VITALS: PULSE 103
[2025-08-11] MEDS: MEROPENEM 1 GM in SODIUM CHLORIDE 0.9% IV 100 ML 200 ML IVPB ×2 (05:59→13:09)
[2025-08-11 08:00] VITALS: BP 130/40; PULSE 76; PULSE 97; RESP 18; TEMP 36.4; O2SAT 94
[2025-08-11 08:42] VITALS: PULSE 76
[2025-08-11] MEDS: CYANOCOBALAMIN 1,000 MCG TABLET 1000 MCG PO (08:42)
[2025-08-11] MEDS: METOPROLOL SUCCINATE EXT REL 12.5 MG TABCR PO (08:42)
[2025-08-11] MEDS: ASPIRIN 81 MG ENTERIC TABLET PO (08:42)
[2025-08-11] MEDS: SENNA/DOCUSATE SODIUM TABLET 1 TAB PO (08:42)
[2025-08-11] MEDS: guaiFENesin 12 HR 600 MG TABCR PO (08:42)
[2025-08-11] MEDS: CHOLECALCIFEROL (VITAMIN D3) 125 MCG (5,000 UNITS) TABLET PO (08:42)
[2025-08-11] MEDS: ENOXAPARIN 40 MG/0.4 ML SYRINGE SUB-Q (08:43)
[2025-08-11] MEDS: FUROSEMIDE INJ 40 MG/4 ML VIAL IV PUSH (08:43)
--- NOTE | 2025-08-11 10:55 | PCCARD ---
PATIENT REFUSED ECHO 08/11/25
[2025-08-11 12:00] VITALS: PULSE 80
--- NOTE | 2025-08-11 13:44 | PM.DS ---
DS: Admitting Diagnosis Discharge Date 08/11/2025 Admitting Diagnosis Shortness of breath DS: Discharge Diagnosis Discharge Diagnosis (1) Hypertension: Qualifiers: Hypertension type: primary hypertension Qualified Code(s): I10 - Essential (primary) hypertension Code(s): I10 - Essential (primary) hypertension Status: Chronic (2) CHF (congestive heart failure): Qualifiers: Heart failure type: unspecified Heart failure chronicity: acute Qualified Code(s): I50.9 - Heart failure, unspecified Code(s): I50.9 - Heart failure, unspecified Status: Acute (3) Aspiration pneumonia: Qualifiers: Aspiration pneumonia type: due to vomit Laterality: bilateral Lung location: unspecified part of lung Qualified Code(s): J69.0 - Pneumonitis due to inhalation of food and vomit Code(s): J69.0 - Pneumonitis due to inhalation of food and vomit Status: Acute (4) Respiratory failure with hypoxia: Qualifiers: Chronicity: acute Qualified Code(s): J96.01 - Acute respiratory failure with hypoxia Code(s): J96.91 - Respiratory failure, unspecified with hypoxia Status: Acute DS: Summary Hospital Course Hospital Course: 85-year-old male who is electing to be DNR status with [facility] recent leg swelling, hypertension, chronic constipation history of CAD, history of CVA status post left eye prosthesis, electing to use aspirin but not statin, presents to [facility] on 08/07/2025 for shortness of breath. Altered mental status. He had significant choking episode while drinking tea. On 08/05. Subsequently developed shortness of breath. Patient treated for aspiration pneumonia with meropenem, doxycycline. His acute hypoxia has resolved, altered mental status has resolved. Patient has had recent leg swelling. He had pulmonary edema and received Lasix. He had an elevated troponin. Patient and family in conjunction did not want to pursue any further management, he will be discharged with a small dose of Lasix 20 mg p.o. 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 Again, did not want to pursue any further evaluation or management. He wanted to take a limited approach him return home. He is discharged in stable condition on 08/11/2025 to home with home health therapy. He will discontinue Trulance as it was causing diarrhea. He has done well with Senokot S1 tab p.o. b.i.d. which he will have a new prescription for. Status at Discharge Overall status at discharge: patient is back to baseline Time Spent with Patient Time attestation: Total time spent providing and/or coordinating discharge services: Time spent: Greater than 30 minutes Exam Const: General: comfortable and no acute distress Eyes: Pupils: Equal, round and reactive pupils present Neck: Neck: supple Resp: Effort & Inspection: normal respiratory effort Auscultation: clear to auscultation bilaterally Cardio: Rate: regular rate Rhythm: regular rhythm Heart sounds: no gallops GI: Inspection: non-distended GI Palp: Yes Soft to palpation Neuro: Motor exam (neuro): 5/5 motor strength present throughout Extrem: Other: Trace pitting edema bilateral lower extremities DS: Data Data Completed and Pending Labs on day of discharge: Labs from last 24 hours 08/11/25 08/11/25 08/10/25 11:25 07:35 20:33 POC Capillary Glucose 175 H 135 H 197 H 08/10/25 16:43 POC Capillary Glucose 173 H Preliminary micro results at discharge 08/07/25 10:24 Blood Culture - Preliminary Blood 08/07/25 12:01 Blood Culture - Preliminary Blood Discharge Plan Discharge Attending physician on discharge: Elza Maciel Consulting providers: Elza Maciel Discharging Clinician: Elza Maciel Patient Disposition: Home with Home Health Service Activity: december shower Diet: heart healthy and other - see discharge instructions Discharge Instructions: Per Care Coordination: [facility] ([phone]) to see pt for RN/PT/OT services. They will call to schedule initial visit. 1500 ML fluid restriction per 24 hours. thickened liquids diet Patient Instructions: Antibiotic Form, Pain Management in Older Adults (DC) Patient Language: Finnish Stand Alone Forms: General Discharge Information Follow-up/Referrals: Shannan Rosas APRN [Primary Care Provider, Family Practice] Discharge Medications: New sennosides-docusate sodium [Senokot-S] 8.6-50 mg Tablet 1 tablet PO BID PRN (Reason: constipation) Qty: 60 0RF furosemide [Lasix] 20 mg tablet 20 mg PO DAILY Qty: 30 0RF Continued nitroglycerin 0.4 mg tablet, sublingual 0.4 mg sublingual Q5M PRN (Reason: chest pain) Rx Instructions: do not exceed 3 doses per episode metformin 1,000 mg tablet 500 mg PO BIDWMEAL Qty: 60 11RF aspirin [Adult Aspirin Regimen] 81 mg tablet,delayed release (DR/EC) 81 mg PO DAILY famotidine 40 mg tablet 40 mg PO QHS Qty: 90 3RF acetaminophen 500 mg Capsule 500 mg PO BID PRN (Reason: Pain) Patient Comments: takes 2 in am and 1 at hs timolol maleate 0.5 % drops 1 drp EACH EYE BID Lumigan 0.01 % drops 1 drp RIGHT EYE QPM Systane Hydration (PF) 0.4-0.3 % dropperette 1 drp EACH EYE DAILY cyanocobalamin (vitamin B-12) 1,000 mcg tablet 1,000 mcg PO DAILY cholecalciferol (vitamin D3) 125 mcg (5,000 unit) tablet 5,000 unit PO DAILY metoprolol succinate 25 mg tablet extended release 24 hr 12.5 mg PO DAILY Qty: 45 3RF Discontinued Trulance 3 mg tablet 3 mg PO DAILY Qty: 90 3RF plecanatide 3 mg tablet 3 mg tablet 0RF Date of admission: 08/07/25 15:29 Primary Care Provider: Shannan Rosas Admitting Provider: Dion Aguila Attending physician on admission: Dion Aguila Condition: Stable Hospitalist MIPS Heart Failure (Exclusion) Patient has history of Heart Transplant or Left Ventricular Assistive Device?: No IF YES, STOP HERE Heart Failure (Qualifier) Patient has current or prior documentation of LVEF less than or equal to 40%, or mod/servere depressed LVSF?: No IF NO, STOP HERE
== END 2025-08-11 15:11 | disposition home health service (06) | DRG 871 ==
LOC: ANHED 15:06 → ANHIMU 15:33 → ANH3MEDSUR 08-10 07:27 → ANHIMU 08-12 15:49
PROVIDERS: Emergency Medicine; Student in an Organized Health Care Education/Training Program; Admitting Provider Internal Medicine; Emergency Provider Registered Nurse; PCP Nurse Practitioner Family; Visit Provider General Practice
DX: A41.9 Sepsis, unspecified organism (principal); J18.9 Pneumonia, unspecified organism; J69.0 Pneumonitis due to inhalation of food and vomit; J96.01 Acute respiratory failure with hypoxia; I24.89 Other forms of acute ischemic heart disease; E87.1 Hypo-osmolality and hyponatremia; J90 Pleural effusion, not elsewhere classified; E11.9 Type 2 diabetes mellitus without complications; I25.10 Atherosclerotic heart disease of native coronary artery without angina pectoris; N40.1 Benign prostatic hyperplasia with lower urinary tract symptoms; R35.1 Nocturia; E78.5 Hyperlipidemia, unspecified; K21.9 Gastro-esophageal reflux disease without esophagitis; D51.9 Vitamin B12 deficiency anemia, unspecified; K59.09 Other constipation; R13.13 Dysphagia, pharyngeal phase; I11.0 Hypertensive heart disease with heart failure; I50.9 Heart failure, unspecified; K43.9 Ventral hernia without obstruction or gangrene; F41.9 Anxiety disorder, unspecified; Z66 Do not resuscitate; I25.2 Old myocardial infarction; Z87.891 Personal history of nicotine dependence; Z95.1 Presence of aortocoronary bypass graft; Z85.828 Personal history of other malignant neoplasm of skin; Z86.73 Personal history of transient ischemic attack (TIA), and cerebral infarction without residual deficits; Z95.2 Presence of prosthetic heart valve
CPT/HCPCS: 36415; 36600; 71045; 71275; 74230; 80048; 80053; 81001; 82010; 82570; 82805; 82948; 83605; 83735; 83880; 83930; 83935; 84145; 84156; 84300; 84484; 85018; 85025; 85055; 85380; 85610; 85730; 86140; 87040; 87637; 92526; 92610; 92611; 93005; 94002; 94640; 96365; 96366; 96367; 96372; 96375; 97110; 97161; 97165; 97530; 97535; 99285; A9270; C1751; J1650; J1815; J1938; J1956; J2185; J2405; J2470; J2919; J3360; J3475; J7030; Q9967

== ENCOUNTER 2025-08-12 16:00 | Emergency (ER) | payer OTHER, SELFPAY ==
--- NOTE | ~2025-08-12 | XR_ITS ---
XR chest 1V portable INDICATION:low O2 sats per family . REFERENCE: 08/07/2025 FINDINGS: A single AP of the chest demonstrates normal heart size. Bilateral infiltrate and opacities are stable. There is no evidence of pneumothorax or pleural effusion. IMPRESSION: Multilobar pneumonia is unchanged. Reviewed, dictated and finalized at location S. UP
--- OUTSIDE RECORDS SUMMARY | 2025-08-12 16:03 | XMS_ITS | Clinical Summary ---
Author Organization [facility] Address [address] [place] [id number] Care Team Providers Care Tower Crane Operator Name Role Phone Wrad Samayoa MD Primary Care Provider [phone] Kenny Hidalgo MD Unavailable [phone] Allergies Active Allergy Reactions Criticality Noted Date [...] 09/09 Assessment & Plan (10/11/2024 4:02 PM NEUROPSYCHOLOGY DIVISION CHIEF): -- Occurred 3 years ago, followed with [...] which helps a little. -- Seen by [facility] for cat eval OD, but they believe photophobia is not due to cataract OD, rather a blind painful eye OS. -- RBA of enuc discussed with patient and his family. PLAN -- Proceed with Enucleation OS -- Eventually send back to [facility] for repeat cat eval OD Assessment & Plan (09/09/2024 12:38 PM NEUROPSYCHOLOGY DIVISION CHIEF): OS. Occurred 3 years ago, followed with [...] 09/09/2024 Assessment & Plan (09/09/2024 12:35 PM NEUROPSYCHOLOGY DIVISION CHIEF): See CRVO OD problem for additional details [...] diet Assessment & Plan (08/02/2022 9:25 PM NEUROPSYCHOLOGY DIVISION CHIEF): Per PCP. Status post coronary artery bypass graft 022 Assessment & Plan (08/02/2022 9:20 PM NEUROPSYCHOLOGY DIVISION CHIEF): Fortunately, he is doing quite well without any symptoms of cardiac ischemia. 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 He was to ask his stem sizer when he was last seen in February [...] 07/14 Assessment & Plan (08/02/2022 9:20 PM NEUROPSYCHOLOGY DIVISION CHIEF): As above. Transient cerebral ischemia 08/01/2022 Assessment & Plan (08/02/2022 9:21 PM NEUROPSYCHOLOGY DIVISION CHIEF): As above. Hypertensive urgency 08/01/2022 Assessment & [...] needed Assessment & Plan (08/02/2022 9:27 PM NEUROPSYCHOLOGY DIVISION CHIEF): His blood pressures been under good control on current medications which he will continue. The patient is aware of the need for continued monitoring. Monitor home BP/Keep diary and bring to OV. Call if average BP >140/90 mmHg. Low sodium diet. HLD (hyperlipidemia) 08/01/2022 Assessment & Plan (08/02/2022 9:27 PM NEUROPSYCHOLOGY DIVISION CHIEF): He did stop his Lipitor several months [...] implant 2 blind painful OS (Sailaja / Sejale) CATARACT EXTRACTION W/ INTRAOCULAR LENS IMPLANT 02/24/2025 Right CEIOL OD (Dr. Kenny Hidalgo) Medical History Medical History Date Comments Type 2 diabetes mellitus Diabete s type 2; Comments: [facility] 10/13/2015 - Anxiety disorder Anxiety Hx Other Medical diverticulitus; Comments: [facility] 10/13/2015 - Depression Depression Hyperlipidemia Hyperlipidemia; Comments: [facility] 10/13/2015 - Hx Other Medical coronary artery disease; Comments: [facility] 10/13/2015 - Type 2 diabetes mellitus Diabete s type 2; Comments: [facility] 01/19/2016 - Hyperlipidemia Hyperlipidemia; Comments: [facility] 01/19/2016 - Hypertension Hypertension Nausea and vomiting [...] on file Legal Sex Male 7:20 PM NEUROPSYCHOLOGY DIVISION CHIEF Gender Identity Not on file Sexual Orientation [...] 10/11/2011, 03/14/2002 Medical Devices Implanted Type Area Black Puller Device Identifier Shelf Expiration Date Model / Serial / Lot Mid Annette Transplant Srvcs Graft Sft Tis Sclr Whl Whole - [id number] - [id number] Implanted:Qty: 1 on 11/19/2024 by Francisco Menard MD at [facility] Other - see comments Left: Eye [employer] Annette Transplant Srvcs 08/02/2025 WHOLE / [id number] / [id number] Description:Whole sclera [employer] Licha 22mm 22mm Hard Lightweight Inert Virtually Unbreakable [id number] - [id number] - [id number] Implanted:Qty: 1 on 11/19/2024 by Francisco Menard MD at [facility] Other - see comments Left: Eye [employer] [id number] 03/30/2026 [id number] / [id number] / [id number] Description:Sterile Eye Sphe re Procedures Procedure Name [...] LAB BLOOD ORDERABLES Connie l Result [facility] [address] [facility] Department [place] [address] * Lipid panel (03/07/2023) Pathologist [facility] SCRIBED Cholesterol, Total 221 l - h EXTERNAL LAB SCRIBED HDL 43 l - h EXTERNAL LAB SCRIBED LDL 148 l - h EXTERNAL LAB SCRIBED Triglycerides 160 l - h EXTERNAL LAB Blood us Shannan Rosas CLINICAL DIRECTOR LAB BLOOD ORDERABLES Final Resu lt EXTERNAL LAB * (ABNORMAL) Hemoglobin A1c (08/31/2022) Pathologist [facility] SCRIBED Hemoglobin A1c 6.7(A) L - 5.7 EXTERNAL LAB Blood 08/31/2022 Richie Euceda MD LAB BLOOD ORDERABLES Connie l Result EXTERNAL LAB from Last 3 Months or Most Recently Relevant to Health Maintenance Insurance Advance Directives For more information, please contact: [phone] * Full Code (Latest Code Status on File) Date Activated Date Inactivated Comments 11/19/2024 9:57 PM 11/20/2024 3:35 PM * Full Code Date Activated Date Inactivated Comments 11/19/2024 8:19 PM 11/19/2024 8:47 PM Care Teams Tower Crane Operator Relationship Specialty Start Date End Date Ward Samayoa MD [address] [address] PCP - General Family Medicine 10/07/24 Kenny Hidalgo MD [address] [facility] [address] [place] [address] Primary Eye Care Provider Ophthalmology 03/18/25
--- OUTSIDE RECORDS SUMMARY | 2025-08-12 16:03 | XMS_ITS | Clinical Summary ---
Author Organization [facility] Address [address] [place] [address] Care Team Providers Care Director And Professor Name Role Phone Ward Samayoa MD Primary [...] complication, without long-term current use of insulin ([facility]) TAKE ONE TABLET BY MOUTH DAILY 90 [...] Diagnosed Date Atherosclerotic heart diseas e of iqugmiut coronary artery without angina pectoris 09/13/2023 Severe epistaxis 05/05/2020 Tubular adenoma of colon 05/05/2020 Primary open angle glaucoma of left eye, unspecified glaucoma stage 05/05/2020 Major depression 03/15/2017 Overview (07/26/2018): Transitioned From: Depression; Annotation - [id number]: Annotation: Major depression (F32.9); Impression - [id number] Kenny Gutierrez: Impression: Stable based upon evaluation [...] (11/26/2020) us Documents Scanned SCANNING Final Result [facility] from Last 3 Months or Most Recently Relevant to Health Maintenance Insurance [employer] Care Teams Director And Professor Relationship Specialty Start Date End Date Ward Samayoa MD [address] [place] [address] [address] [place], [place] [address] PCP - General FAMILY PRACTICE 09/13/23
--- OUTSIDE RECORDS SUMMARY | 2025-08-12 16:03 | XMS_ITS | Encounter Summary ---
Author Organization [facility] Address [address] [place] [address] Care Team Providers Care Senior Systems Software Engineer Name Role Phone Ward Samayoa MD Primary Care Provider [phone] Encounter Details Date Type Department Care Team (Late st Contact Info) Description 09/27/2023 Abstract [facility], [address] [address] Sadiq Ibarra MA Social History Tobacco Use [...] Results * COMPREHENSIVE METABOLIC PANEL (04/29/2024) Pathologist [facility] SODIUM S/P/B 134 GLUCOSE 190 mg/dL AST 23 BUN 10 CREATININE S/P/B 0.74 0.7 - 1.3 CALCIUM S/P/B 9.3 POTASSIUM S/P/B 4.6 CHLORIDE S/P/B 98 ALT 23 GFR ESTIMATE 89 us Default History Genericprovider LABORATORY Final Result * LIPID PANEL (04/29/2024) Pathologist [facility] CHOLESTEROL 206 TRIGLYCERIDES 245 HDL 44 LDL (CALCULATED) 122 NON HDL CHOLESTEROL 162 us Default History Genericprovider LABORATORY Final Result * CBC, MANUAL DIFF (04/29/2024) Pathologist [facility] WBC 7.4 HGB 13.4 HCT 41.5 PLT 194 us Default History Genericprovider LABORATORY Final Result * HEMOGLOBIN, GLYCOSYLATED (04/29/2024) HGB A1C 8.5 % us Default History Genericprovider LABORATORY Final Result * THYROID STIM HORMONE TSH (04/29/2024) TSH 3.04 us Default History Genericprovider LABORATORY Final Result * LIPID PANEL (03/07/2023) Pathologist [facility] CHOLESTEROL 221 HDL 43 TRIGLYCERIDES 160 LDL (CALCULATED) 148 03/07/2023 us Default History Genericprovider LABORATORY Final Result * COMPREHENSIVE METABOLIC PANEL (08/31/2022) Pathologist [facility] SODIUM S/P/B 134 GLUCOSE 136 mg/dL AST 20 BUN 11 CREATININE S/P/B 0.75 0.7 - 1.3 CALCIUM S/P/B 9.1 POTASSIUM S/P/B 4.6 CHLORIDE S/P/B 98 ALT 21 GFR ESTIMATE 89 us Default History Genericprovider LABORATORY Final Result * LIPID PANEL (08/31/2022) Pathologist [facility] CHOLESTEROL 209 TRIGLYCERIDES 220 HDL 39 LDL (CALCULATED) 133 NON HDL CHOLESTEROL 170 us Default History Genericprovider LABORATORY Final Result * HEMOGLOBIN, GLYCOSYLATED (08/31/2022) Pathologist [facility] HGB A1C 6.7 % us Default History Genericprovider LABORATORY Final Result documented in this encounter Visit Diagnoses Not on filedocumented in this encounter Additional Health Concerns Assessment Noted Time PHQ-9 Depression Total Score: 0 04/29/20 19 10:31 AM CDT documented as of this encounter Care Teams Senior Systems Software Engineer Relationship Specialty Start Date End Date Ward Samayoa MD [address] [place] [address] [address] [place] [address] PCP - General FAMILY PRACTICE 09/13/23 documented as of this encounter
--- OUTSIDE RECORDS SUMMARY | 2025-08-12 16:03 | XMS_ITS | Encounter Summary ---
Author Organization [facility] Address [address] [place] [address] Care Team Providers Care Senior Center Director Name Role Phone Kenny Gutierrez MD Primary Care Provider Ward Samayoa MD Primary Care Provider [phone] Encounter Details Date Type Department Care Team (Late st Contact Info) Description 11/08/2020 Prep for Procedure [facility] [place], [place] [id number] Gt Singleton MD [address] [id number] Social History Tobacco Use Types Packs/Day Years [...] COVID-19? No / Unsure 10/12/2020 8:45 AM HOOKMAN documented as of this encounter Plan of Treatment Not on file documented as of this encounter Visit Diagnoses Diagnosis History of colon polyps- Primary Personal history of colonic polyps documented in this encounter Additional Health Concerns Assessment Noted Time PHQ-9 Depression Total Score: 0 04/29/20 19 10:31 AM CDT documented as of this encounter Care Teams Senior Center Director Relationship Specialty Start Date End Date Kenny Gutierrez MD [address] [address] PCP - General 03/03/17 09/12/23 Ward Samayoa MD [address] [address] [address] [place], [place] [address] PCP - General FAMILY PRACTICE 09/13/23 documented as of this encounter
[2025-08-12 16:06] VITALS: BP 147/61; PULSE 98; RESP 17; TEMP 36.4; O2SAT 95
[2025-08-12 19:52] VITALS: BP 125/71; PULSE 93; RESP 18; TEMP 36.4; O2SAT 93
[2025-08-12 21:22] VITALS: BP 152/51; PULSE 103; RESP 22; O2SAT 94
[2025-08-12 21:51] VITALS: BP 152/61; PULSE 106; RESP 20; O2SAT 96
--- NOTE | 2025-08-12 22:03 | ED.RECABL ---
HPI - Recheck/Abnormal Lab/Rx General Chief Complaint: Recheck/Abnormal Lab/Rx Stated Complaint: wants to get oxygen checked for home o2 Time Seen by Provider: 08/12/25 21:51 History of Present Illness HPI narrative: 85-year-old male presenting to the emergency department for repeat evaluation. He was discharged yesterday after brief hospital stay for pneumonia from aspiration event. Patient has no complaints and states he feels well now but he did have a low oxygen of 88% while at rest at home visualized by his son who called his doctor told him go the hospital for repeat evaluation. They did not actually get to see his doctor today. Patient has no complaints and states he feels back to his normal state of health and still has his oral antibiotics that he was discharged on and does not want to be re-evaluated or readmitted. Patient has no complaints and his vital signs in triage are normal. No hypoxemia noted. Reportedly he did have an oxygen evaluation during his hospitalization and was not needing oxygen for home per family report. They inquired his regular PCP about having as needed oxygen at home and they referred him to the ER. Patient denies symptoms at this time and otherwise would like to go home. Related Data Home Medications ?Medication ?Instructions ?Recorded ?Confirmed ?Last Taken ?Type cholecalciferol (vitamin D3) 125 5,000 unit PO DAILY 10/13/21 08/07/25 03/24/22 History mcg (5,000 unit) tablet cyanocobalamin (vitamin B-12) 1,000 mcg PO DAILY 10/13/21 08/07/25 03/24/22 History 1,000 mcg tablet acetaminophen 500 mg capsule 500 mg PO BID PRN Pain 03/16/22 08/07/25 03/24/22 History timolol maleate 0.5 % eye drops 1 drp EACH EYE BID 03/16/22 08/07/25 03/24/22 History nitroglycerin 0.4 mg sublingual 0.4 mg sublingual Q5M PRN chest 03/28/24 08/07/25 Unknown History tablet pain aspirin 81 mg tablet,delayed 81 mg PO DAILY 10/03/24 08/07/25 Unknown History release (Adult Aspirin Regimen) bimatoprost 0.01 % eye drops 1 drp RIGHT EYE QPM 08/07/25 08/07/25 08/06/25 History (Lumigan) peg 400-propylene glycol (PF) 0.4 1 drp EACH EYE DAILY 08/07/25 08/07/25 08/06/25 History %-0.3 % eye drops in a dropperette (Systane Hydration (PF)) Allergies Allergy/AdvReac Type Severity Reaction Status Date / Time Penicillins Allergy Severe Hives Verified 08/07/25 16:46 Review of Systems Review of Systems: As reviewed above in HPI All systems reviewed & are unremarkable except as noted in HPI and below PMFSH Past Medical History Medical History Ventral hernia Diverticulosis Chronic constipation Family hx of colon cancer Hx of adenomatous colonic polyps Elevated PSA, less than 10 ng/ml Screening for diabetic retinopathy no diabetic retinopathy on eye exam 07/29/2021. Vitamin B12 deficiency anemia (10/06/21) level low at 309 with goal greater than 400 on 10/06/2021. Normal at 426 on 12/22/2021. Vitamin D deficiency, unspecified (10/06/21) level low at 19.4 with goal greater than 30 on 10/06/2021. normal at 39.8 on 12/22/2021. Myalgia Constipation Hypertension Seasonal allergies GERD (gastroesophageal reflux disease) Hyperlipidemia total cholesterol 128, triglycerides 116, HDL 47 and LDL 86 on 10/06/2021 Diabetes type 2, controlled glucose 138 with hemoglobin A1c 6.9 on 10/06/2021 with urine microalbumin ratio of 7. Glucose 141 with hemoglobin A1c 6.8 on 12/22/2021. 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, 2 vessel + stent 2013 History of ear surgery H/O eye surgery Family History Family History Mother Cancer Father Suicide Grandparent Cancer Grandparent Heart disease Grandparent Cancer Grandparent Person hit by train Social History Social History Smoking status: Never smoker Tobacco type: cigarettes Smoking end date: 08/14/1959 Additional smoking assessment comments: 1 ppd for 5 years Alcohol intake: never Substance use: never Substance use type: does not use Lack of Transportation: No Lack of Food: Never True Current Housing: I Have Housing Concerned About Future Housing: No Difficulty Paying Gas/Electric Bills: No Difficulty Paying for Meds: No Currently Unemployed: No Education: Trade/Vocational Certificate Difficulty w/ Childcare or Family Care: No Living arrangements: with family Spiritual care concerns: No Exam Narrative: GENERAL: [Well-appearing, well-nourished, and in no acute distress.] HEAD: [Normocephalic, atraumatic.] EYES: extraocular movements and that, left corneal hazing appears chronic ENT: Nares clear, no rhinorrhea or epistaxis. Mucous membranes moist. NECK: Supple. CHEST: no respiratory distress or tachypnea. good air entry bilaterally. Some scattered asymmetric rhonchi HEART: [Regular rate and rhythm]. No murmur heard. [Normal peripheral pulses.] ABDOMEN: [Soft, nondistended], [nontender], [No rigidity or guarding] EXTREMITIES: Normal range of motion. [No edema.] SKIN: Warm, dry, no rash. NEURO: [No focal deficits]. Alert and oriented [x3.] PSYCH: [Normal mood and affect.] Course Vital Signs Vital signs: Vital Signs Temperature 36.4 C 08/12/25 16:06 Pulse Rate 98 08/12/25 16:06 Respiratory Rate 17 08/12/25 16:06 Blood Pressure 147/61 H 08/12/25 16:06 Pulse Oximetry 95 08/12/25 16:06 Oxygen Delivery Room Air 08/12/25 16:06 Temperature 36.4 C L 08/12/25 19:52 Pulse Rate 106 H 08/12/25 21:51 Respiratory Rate 18 08/12/25 22:07 Blood Pressure 152/61 H 08/12/25 21:51 Pulse Oximetry 96 08/12/25 21:51 Oxygen Delivery Room Air 08/12/25 16:06 MDM MDM Narrative Medical decision making narrative: 85-year-old male presenting to the emergency department for repeat evaluation. He was discharged yesterday after brief hospital stay for pneumonia from aspiration event. Patient has no complaints and states he feels well now but he did have a low oxygen of 88% while at rest at home visualized by his son who called his doctor told him go the hospital for repeat evaluation. They did not actually get to see his doctor today. Patient has no complaints and states he feels back to his normal state of health and still has his oral antibiotics that he was discharged on and does not want to be re-evaluated or readmitted. Patient has no complaints and his vital signs in triage are normal. No hypoxemia noted. Reportedly he did have an oxygen evaluation during his hospitalization and was not needing oxygen for home per family report. They inquired his regular PCP about having as needed oxygen at home and they referred him to the ER. Patient denies symptoms at this time and otherwise would like to go home. patient otherwise appears well and has reassuring vital signs with any fever, hypoxemia, tachycardia or blood pressure concerns. He has a benign physical examination appears unchanged from his recent hospitalization and discharge yesterday. Patient has no complaints and family just wanted his oxygen evaluated and he has been holding 94-95% consistently during his stay here. No RENEE or pain. Chest x-ray obtained showed no interval change compared to prior. Patient elects to go home at this time, doesnt want further workup, and is deemed safe for discharge with regular PCP follow-up and strict return precautions. Differential Diagnosis Differential Diagnosis: Pneumonia, hypoxemia, pneumothorax, COPD, CHF Imaging Data Radiologist's impression: ITS Impressions Chest X-Ray 08/12/25 21:38 IMPRESSION: Multilobar pneumonia is unchanged. Discharge Plan Discharge Clinical Impression: Pneumonia Patient Disposition: Home Condition: Stable Instructions: Antibiotic Form Additional Instructions: Chest x-ray appears unchanged any still need complete your antibiotics. Return if any respiratory distress or complaints or worsening shortness of breath or new symptoms otherwise follow-up with regular doctor. Patient Language: Bengali Prescriptions: No Action nitroglycerin 0.4 mg tablet, sublingual 0.4 mg sublingual Q5M PRN (Reason: chest pain) Rx Instructions: do not exceed 3 doses per episode metformin 1,000 mg tablet 500 mg PO BIDWMEAL Qty: 60 11RF aspirin [Adult Aspirin Regimen] 81 mg tablet,delayed release (DR/EC) 81 mg PO DAILY famotidine 40 mg tablet 40 mg PO QHS Qty: 90 3RF acetaminophen 500 mg Capsule 500 mg PO BID PRN (Reason: Pain) Patient Comments: takes 2 in am and 1 at hs timolol maleate 0.5 % drops 1 drp EACH EYE BID Lumigan 0.01 % drops 1 drp RIGHT EYE QPM Systane Hydration (PF) 0.4-0.3 % dropperette 1 drp EACH EYE DAILY sennosides-docusate sodium [Senokot-S] 8.6-50 mg Tablet 1 tablet PO BID PRN (Reason: constipation) Qty: 60 0RF furosemide [Lasix] 20 mg tablet 20 mg PO DAILY Qty: 30 0RF cyanocobalamin (vitamin B-12) 1,000 mcg tablet 1,000 mcg PO DAILY cholecalciferol (vitamin D3) 125 mcg (5,000 unit) tablet 5,000 unit PO DAILY metoprolol succinate 25 mg tablet extended release 24 hr 12.5 mg PO DAILY Qty: 45 3RF Follow-up/Referrals: Shannan Rosas APRN [Primary Care Provider, Family Practice] Time of Disposition: 22:07
--- OUTSIDE RECORDS SUMMARY | 2025-08-12 22:05 | XMS_ITS | Encounter Summary ---
Author Organization [facility] Address [address] [place] [address] Care Team Providers Care Comptroller Name Role Phone Kenny Gutierrez MD Primary Care Provider Ward Samayoa MD Primary Care Provider [phone] Encounter Details Date Type Department Care Team (Late st Contact Info) Description 11/08/2020 Prep for Procedure [facility] [place], [place] [id number] Gt Singleton MD [address] [id number] Social History Tobacco Use Types Packs/Day Years [...] COVID-19? 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 documented as of this encounter Plan of Treatment Not on file documented as of this encounter Visit Diagnoses Diagnosis History of colon polyps- Primary Personal history of colonic polyps documented in this encounter Additional Health Concerns Assessment Noted Time PHQ-9 Depression Total Score: 0 04/29/20 19 10:31 AM CDT documented as of this encounter Care Teams Comptroller Relationship Specialty Start Date End Date Kenny Gutierrez MD [address] [address] PCP - General 03/03/17 09/12/23 Ward Samayoa MD [address] [address] [address] [place], [place] [address] PCP - General FAMILY PRACTICE 09/13/23 documented as of this encounter
--- OUTSIDE RECORDS SUMMARY | 2025-08-12 22:05 | XMS_ITS | Clinical Summary ---
Author Organization [facility] Address [address] [place] [id number] Care Team Providers Care Tag Marker Name Role Phone Ward Samayoa MD Primary Care Provider [phone] Kenny Hidalgo MD Unavailable [phone] Allergies Active Allergy Reactions Criticality Noted Date [...] 09/09 Assessment & Plan (10/11/2024 4:02 PM SUPERINTENDENT BUILDING): -- Occurred 3 years ago, followed with [...] which helps a little. -- [place] [facility] [place], but they believe photophobia is not due to cataract OD, rather a blind painful eye OS. -- RBA of enuc discussed with patient and his family. PLAN -- Proceed with Enucleation OS -- Eventually send back to [facility] for repeat cat eval OD Assessment & Plan (09/09/2024 12:38 PM SUPERINTENDENT BUILDING): OS. Occurred 3 years ago, followed with [...] 09/09/2024 Assessment & Plan (09/09/2024 12:35 PM SUPERINTENDENT BUILDING): See CRVO OD problem for additional details [...] diet Assessment & Plan (08/02/2022 9:25 PM SUPERINTENDENT BUILDING): Per PCP. Status post coronary artery bypass graft 022 Assessment & Plan (08/02/2022 9:20 PM SUPERINTENDENT BUILDING): Fortunately, he is doing quite well without any symptoms of cardiac ischemia. 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 He was to ask his skein bander when he was last seen in February [...] 07/14 Assessment & Plan (08/02/2022 9:20 PM SUPERINTENDENT BUILDING): As above. Transient cerebral ischemia 08/01/2022 Assessment & Plan (08/02/2022 9:21 PM SUPERINTENDENT BUILDING): As above. Hypertensive urgency 08/01/2022 Assessment & [...] needed Assessment & Plan (08/02/2022 9:27 PM SUPERINTENDENT BUILDING): His blood pressures been under good control on current medications which he will continue. The patient is aware of the need for continued monitoring. Monitor home BP/Keep diary and bring to OV. Call if average BP >140/90 mmHg. Low sodium diet. HLD (hyperlipidemia) 08/01/2022 Assessment & Plan (08/02/2022 9:27 PM SUPERINTENDENT BUILDING): He did stop his Lipitor several months [...] diabetes mellitus Diabete s type 2; Comments: [facility] 10/13/2015 - Anxiety disorder Anxiety Hx Other Medical diverticulitus; Comments: [facility] 10/13/2015 - Depression Depression Hyperlipidemia Hyperlipidemia; Comments: [facility] 10/13/2015 - Hx Other Medical coronary artery disease; Comments: [facility] 10/13/2015 - Type 2 diabetes mellitus Diabete s type 2; Comments: [facility] 01/19/2016 - Hyperlipidemia Hyperlipidemia; Comments: [facility] 01/19/2016 - Hypertension Hypertension Nausea and [...] on file Legal Sex Male 7:20 PM SUPERINTENDENT BUILDING Gender Identity Not on file Sexual Orientation [...] 10/11/2011, 03/14/2002 Medical Devices Implanted Type Area Avionics Engineer Device Identifier Shelf Expiration Date Model / Serial / Lot Mid Annette Transplant Srvcs Graft Sft Tis Sclr Whl Whole - [id number] - [id number] Implanted:Qty: 1 on 11/19/2024 by Francisco Menard MD at [facility] Medicine Other - see comments Left: Eye Mid Annette Transplant Srvcs 08/02/2025 WHOLE / [id number] / [id number] Description:Whole sclera [employer] Licha 22mm 22mm Hard Lightweight Inert Virtually Unbreakable [id number] - [id number] - [id number] Implanted:Qty: 1 on 11/19/2024 by Francisco Menard MD at [facility] Medicine Other - see comments Left: Eye [employer] [id number] 03/30/2026 [id number] / [id number] / [id number] Description:Sterile Eye Sphe re Procedures Procedure Name [...] LAB BLOOD ORDERABLES Connie l Result [facility] [place] [address] * Lipid panel (03/07/2023) Pathologist [facility] SCRIBED Cholesterol, Total 221 l - h EXTERNAL LAB SCRIBED HDL 43 l - h EXTERNAL LAB SCRIBED LDL 148 l - h EXTERNAL LAB SCRIBED Triglycerides 160 l - h EXTERNAL LAB Blood us Shannan Rosas SENIOR MAINFRAME DEVELOPER LAB BLOOD ORDERABLES Final Resu lt EXTERNAL LAB * (ABNORMAL) Hemoglobin A1c (08/31/2022) Pathologist [facility] SCRIBED Hemoglobin A1c 6.7(A) L - 5.7 EXTERNAL LAB Blood 08/31/2022 Richie Euceda MD LAB BLOOD ORDERABLES Connie l Result EXTERNAL LAB from Last 3 Months or Most Recently Relevant to Health Maintenance Insurance Advance Directives For more information, please contact: [phone] * Full Code (Latest Code Status on File) Date Activated Date Inactivated Comments 11/19/2024 9:57 PM 11/20/2024 3:35 PM * Full Code Date Activated Date Inactivated Comments 11/19/2024 8:19 PM 11/19/2024 8:47 PM Care Teams Tag Marker Relationship Specialty Start Date End Date Ward Samayoa MD [address] [address] PCP - General Family Medicine 10/07/24 Kenny Hidalgo MD [address] [facility] [address] [place] [address] Primary Eye Care Provider Ophthalmology 03/18/25
--- OUTSIDE RECORDS SUMMARY | 2025-08-12 22:05 | XMS_ITS | Clinical Summary ---
Author Organization [facility] Address [address] [place] [address] Care Team Providers Care Inspector Integrated Circuits Name Role Phone Ward Samayoa MD Primary [...] complication, without long-term current use of insulin ([facility]) TAKE ONE TABLET [...] Diagnosed Date Atherosclerotic heart diseas e of [place] coronary artery without angina pectoris 09/13/2023 Severe epistaxis 05/05/2020 Tubular adenoma of colon 05/05/2020 Primary open angle glaucoma of left eye, unspecified glaucoma stage 05/05/2020 Major depression 03/15/2017 Overview (07/26/2018): Transitioned From: Depression; Annotation - [id number]: Annotation: Major depression (F32.9); Impression - [id number] Kenny Gutierrez: Impression: Stable based upon evaluation [...] (11/26/2020) us Documents Scanned SCANNING Final Result [facility] ON[facility] from Last 3 Months or Most Recently Relevant to Health Maintenance Insurance [employer] Care Teams Inspector Integrated Circuits Relationship Specialty Start Date End Date Ward Samayoa MD [address] [place] [address] [address] [place], [place] [id number] PCP - General FAMILY PRACTICE 09/13/23
[2025-08-12 22:07] VITALS: RESP 18
== END 2025-08-12 22:31 | disposition home or self-care (01) ==
LOC: ANHED 22:03
PROVIDERS: Emergency Provider Student in an Organized Health Care Education/Training Program; PCP Nurse Practitioner Family
DX: J18.9 Pneumonia, unspecified organism (principal); I25.10 Atherosclerotic heart disease of native coronary artery without angina pectoris; I25.2 Old myocardial infarction; I10 Essential (primary) hypertension; E78.5 Hyperlipidemia, unspecified; E11.9 Type 2 diabetes mellitus without complications; E55.9 Vitamin D deficiency, unspecified; E53.8 Deficiency of other specified B group vitamins; K21.9 Gastro-esophageal reflux disease without esophagitis; N40.1 Benign prostatic hyperplasia with lower urinary tract symptoms; R35.1 Nocturia; F41.9 Anxiety disorder, unspecified; Z95.1 Presence of aortocoronary bypass graft; Z86.0101 Personal history of adenomatous and serrated colon polyps; Z87.891 Personal history of nicotine dependence; Z86.73 Personal history of transient ischemic attack (TIA), and cerebral infarction without residual deficits; Z85.828 Personal history of other malignant neoplasm of skin; Z98.49 Cataract extraction status, unspecified eye; Z79.82 Long term (current) use of aspirin; Z79.84 Long term (current) use of oral hypoglycemic drugs
CPT/HCPCS: 71045; 99283